=== PATIENT | male | born 1940 | race Caucasian/White ===

== ENCOUNTER 2017-04-30 07:46 | Inpatient (IN) | payer OTHER ==
[2017-04-30] MEDS: NS 1000 ML 1,000 ML IV SCH ×2 (08:47→21:27)
[2017-04-30 08:54] LABS: ALANINE AMINOTRANSFERASE 15 Units/L (12-78); ALBUMIN 3.4 g/dL (3.4-5.0); ALKALINE PHOSPHATASE 54 Units/L (46-116); ASPARTATE AMINO TRANSFERASE 16 Units/L (15-37); BLOOD UREA NITROGEN 13 mg/dL (7-18); CALCIUM 8.4 mg/dL (8.5-10.1); CARBON DIOXIDE 38.7 mmol/L (21-32); CHLORIDE 102 mmol/L (98-107); COR NA(FOR HYPERGLY) 143 mmol/L (136-145); CREATININE 0.88 mg/dL (0.70-1.30); GLUCOSE 122 mg/dL (65-99); SODIUM 142 mmol/L (136-145); eGFR BLACK RACES > 60 (>60); eGFR NON BLACK RACES > 60 (>60)
--- NOTE | 2017-04-30 08:54 | DR.GENAD ---
HPI - PCP Primary Care Physician: JESSICA - Complaint/Symptoms Chief Complaint Doctors Comments: Patient presented to the ED via EMS with complaint of SOB,and weakness.He is a Hospice patient secondary to his COPD status according to family member. He is on continous oxylgen ?liters, gets q4h neb treatments. He has a DNR but not on record. He is alert and afebrile. Chief Complaint:: EMS STATES PT IS HAVING SOB, WEAKNESS, AND CONFUSION. UPON ARRIVAL PT IS A&0 X2. PT IS HAVING DIFFICULTY BREATHING WITH O2 PRESENT. - Source History Provided: EMS - Mode of Arrival Mode of Arrival: EMS - Timing Onset of Chief Complaint: 04/30/17 PMH - PMH Past Medical History: Yes Past Medical History: Anemia, Angina, Anxiety, Arthritis, CHF, COPD, Coronary Artery Disease, Depression, Dyslipidemia, GERD, Hypertension, CA Past Surgical History: Yes Surgical History: Ortho Surgery, Tonsillectomy - Family History History of Family Medical Conditions: Yes Family Medical History: Cancer, Heart Failure, Hypertension - Social History Does any household member use tobacco: No Do you use any recreational Drugs:: No Lives With: Family Lives Where: Home - infectious screening In the last 2 months have you had wt loss of >10#?: NO Have you had fever, night sweats or hemotysis?: No Have you traveled outside the country in the last 6 months?: No Isolation: Standard ROS - Review of Systems Constitutional: No Symptoms Reported Eyes: No Symptoms Reported, Eye Pain ENTM: No Symptoms Reported Respiratoy: See HPI Cardiovascular: No Symptoms Reported Gastrointestinal/Abdominal: No Symptoms Reported Genitourinary: No Symptoms Reported Neurological: No Symptoms Reported Musculoskeletal: No Symptoms Reported Integumentary: No Symptoms Reported Hematologic/Lymphatic: No Symptoms Reported Endocrine: No Symptoms Reported Psychiatric: No Symptoms Reported All Other Systems: Reviewed and Negative PE - Vital Signs Vitals: Temperature 99.7 F Pulse Rate 102 Respiratory Rate 22 Blood Pressure [Left Arm] 141/88 Blood Pressure [Right Arm] 125/80 Blood Pressure 125/83 O2 Sat by Pulse Oximetry 94 - General General Appearance: In No Apparent Distress - Head Head Exam: Normal Inspection, Atraumatic - Eyes Eye exam: Normal Appearance, PERRL, EOMI - ENT ENT Exam: Normal Exam External Ear Exam: Normal External Inspection TM/Canal Exam: Bilateral Normal Nose Exam: Normal Nose Exam Mouth Exam: Normal Inspection Throat Exam: Normal Inspection - Neck Neck Exam: Normal Inspection - Chest Chest Inspection: Normal Inspection - Respiratory Respiratory Exam: Normal Lung Sounds Bilat Respiratory Exam: Bilateral Clear to Auscultation - Cardiovascular Cardiovascular Exam: Regular Rate, Normal Rhythm - Abdominal Exam Abdominal Exam: Normal Inspection Abdominal Tenderness: negative: RUQ, RLQ, LUQ, LLQ, Epigastrium, Suprapubic, Diffuse, Mild, Moderate, Severe, Other - Extremities Extremities Exam: Normal Inspection, Other (Left lower extremity smaller) - Back Back Exam: Normal Inspection, Full ROM - Neurologic Neurological Exam: Alert, Oriented X3, CN II-XII Intact - Psychiatric Psychiatric Exam: Normal Affect - Skin Skin Exam: Warm, Dry, Intact Course - Reevaluation 1st: Improved - Consultation Called: 09:40 (Dr Chilel recommended admit for further evaluation and treatment) ROR - Labs Reviewed Laboratory Results Reviewed?: Yes Result Diagrams: 04/30/17 08:35 04/30/17 08:32 Laboratory: WBC 10.0 X10^3/uL (3.6-10.0) 04/30/17 08:35 RBC 4.30 X10^6/uL (4.7-6.0) L 04/30/17 08:35 Hgb 12.4 g/dL (13.5-18.0) L 04/30/17 08:35 Hct 37.7 % (42.0-54.0) L 04/30/17 08:35 MCV 87.6 fL (80.0-100.0) 04/30/17 08:35 MCH 28.8 pg (27.0-34.0) 04/30/17 08:35 MCHC 32.9 g/dL (33.0-35.0) L 04/30/17 08:35 RDW 15.2 % (11.6-16.5) 04/30/17 08:35 Plt Count 120 X10^3/uL (150.0-450.0) L 04/30/17 08:35 MPV 9.6 fL (7.4-11.0) 04/30/17 08:35 Neut % 79.2 % (42.0-75.0) H 04/30/17 08:35 Lymph % 8.1 % (21.0-51.0) L 04/30/17 08:35 [place] % 7.7 % (0.0-13.0) 04/30/17 08:35 Eos % 4.3 % (0.9-2.9) H 04/30/17 08:35 Baso % 0.7 % (0.2-1.0) 04/30/17 08:35 Neut # 7.9 x10^3/uL (2.2-4.8) H 04/30/17 08:35 Lymph # 0.8 X10^3/uL (1.3-2.9) L 04/30/17 08:35 [place] # 0.8 x10^3/uL (0.3-0.8) 04/30/17 08:35 Eos # 0.4 x10^3/uL (0.0-0.2) H 04/30/17 08:35 Baso # 0.1 X10^3/uL (0.0-0.1) 04/30/17 08:35 Absolute Nucleated RBC 0.2 /100WBC 04/30/17 08:35 Sample Site Right brachial 04/30/17 09:13 ABG pH 7.280 (7.35-7.45) L 04/30/17 09:13 ABG pCO2 87.0 mmHg (35.0-45.0) H* 04/30/17 09:13 ABG pO2 66.0 mmHg (80.0-100.0) L 04/30/17 09:13 ABG HCO3 40.9 mmol/L (22-26) H* 04/30/17 09:13 ABG O2 Saturation 90.0 % (90-100) 04/30/17 09:13 ABG Base Excess 10.8 mmol/L (-2.0-2.0) H 04/30/17 09:13 Sam Test Na 04/30/17 09:13 A-a Gradient 53.0 mmHg 04/30/17 09:13 FiO2 32.000 04/30/17 09:13 Blood Gas Comments Eduin well aw 04/30/17 09:13 Sodium 142 mmol/L (136-145) 04/30/17 08:32 Corrected Sodium 143 mmol/L (136-145) 04/30/17 08:32 Potassium 4.8 mmol/L (3.5-5.1) 04/30/17 08:32 Chloride 102 mmol/L (98-107) 04/30/17 08:32 Carbon Dioxide 38.7 mmol/L (21-32) H 04/30/17 08:32 BUN 13 mg/dL (7-18) 04/30/17 08:32 Creatinine 0.88 mg/dL (0.70-1.30) 04/30/17 08:32 Est GFR (MDRD) Af Amer > 60 (>60) 04/30/17 08:32 Est GFR (MDRD) Non-Af > 60 (>60) 04/30/17 08:32 Glucose 122 mg/dL (65-99) H 04/30/17 08:32 Calcium 8.4 mg/dL (8.5-10.1) L 04/30/17 08:32 Corrected Calcium TNP 04/30/17 08:32 Total Bilirubin 0.50 mg/dL (0.2-1.0) 04/30/17 08:32 AST 16 Units/L (15-37) 04/30/17 08:32 ALT 15 Units/L (12-78) 04/30/17 08:32 Alkaline Phosphatase 54 Units/L (46-116) 04/30/17 08:32 B-Natriuretic Peptide 62.2 pg/mL (0-79) 04/30/17 08:32 Total Protein 7.0 g/dL (6.4-8.2) 04/30/17 08:32 Albumin 3.4 g/dL (3.4-5.0) 04/30/17 08:32 Globulin 3.6 g/dL (2.5-4.5) 04/30/17 08:32 Albumin/Globulin Ratio 0.9 Ratio (1.1-2.1) L 04/30/17 08:32 - XRAY XRAY Interpreted by: Radiologist (Questionable parenchymal scarring along the right upper lobe with is ill defined, recommend a followup PA.) - Diagnosis Discharge Problem: Acute respiratory acidosis COPD (chronic obstructive pulmonary disease) Qualifiers: COPD type: COPD with acute exacerbation Qualified Code(s): J44.1 - Chronic obstructive pulmonary disease with (acute) exacerbation - Discharge Plan Condition: Stable - Follow ups/Referrals Follow ups/Referrals: EDNA CHILEL [Primary Care Provider] - 3 days - Instructions
--- NOTE | 2017-04-30 08:59 | RAD ---
HISTORY: shortness of breath Study: Portable chest Comparison: 02/20/2016 Findings: The heart is normal. The pulmonary vessels are normal. The lungs are mildly hyperinflated. There is overlying EKG lead and tubing artifact. There is some ill-defined parenchymal density in the right u pper lobe which is very ill-defined . There chronic interstitial changes along the lung bases with s ome questionable hazy right basilar opacity . There effusion is seen. IMPRESSION: Overlying artifact limiting the exam with diffuse chronic lung changes and questionable early infilt rate or atelectasis right lower lobe . Questionable parenchymal scarring along the right upper lobe which is ill-defined, recommend a follo wup PA and lateral chest. Reported By:
[2017-04-30] MEDS ORDERED: DUONEB 0.5 MG/3 MG ONE (09:16)
[2017-04-30 09:22] LABS: ABG BASE EXCESS 10.8 mmol/L (-2.0-2.0)
[2017-04-30 09:23] LABS: ABG HCO3 40.9 mmol/L (22-26)
[2017-04-30 09:38] LABS: BASOPHILS # (AUTO) 0.1 X10^3/uL (0.0-0.1); BASOPHILS % (AUTO) 0.7 % (0.2-1.0); EOSINOPHILS # (AUTO) 0.4 x10^3/uL (0.0-0.2); EOSINOPHILS % (AUTO) 4.3 % (0.9-2.9); HEMATOCRIT 37.7 % (42.0-54.0); HEMOGLOBIN 12.4 g/dL (13.5-18.0); LYMPHOCYTES # (AUTO) 0.8 X10^3/uL (1.3-2.9); LYMPHOCYTES % (AUTO) 8.1 % (21.0-51.0); MEAN CORPUSCULAR HEMOGLOBIN 28.8 pg (27.0-34.0); MEAN CORPUSCULAR HGB CONC 32.9 g/dL (33.0-35.0); MEAN CORPUSCULAR VOLUME 87.6 fL (80.0-100.0); MEAN PLATELET VOLUME 9.6 fL (7.4-11.0); MONOCYTES # (AUTO) 0.8 x10^3/uL (0.3-0.8); MONOCYTES % (AUTO) 7.7 % (0.0-13.0); NEUTROPHILS # (AUTO) 7.9 x10^3/uL (2.2-4.8); NEUTROPHILS % (AUTO) 79.2 % (42.0-75.0); PLATELET COUNT 120 X10^3/uL (150.0-450.0); RED CELL DISTRIBUTION WIDTH 15.2 % (11.6-16.5)
[2017-04-30] MEDS ORDERED: SOLU-Medrol 125 MG VIAL IVP ONE (10:46)
[2017-04-30] MEDS ORDERED: SOLU-Medrol 125 MG VIAL ONE (11:15)
[2017-04-30] MEDS: LEVAQUIN PREMIX IV 750 MG 750 MG/150 ML BAG IV SCH (11:16)
[2017-04-30 11:26] LABS: BLOOD UREA NITROGEN 14 mg/dL (7-18); CALCIUM 8.4 mg/dL (8.5-10.1); CARBON DIOXIDE 36.6 mmol/L (21-32); CHLORIDE 103 mmol/L (98-107); COR NA(FOR HYPERGLY) 142 mmol/L (136-145); CREATININE 0.89 mg/dL (0.70-1.30); GLUCOSE 113 mg/dL (65-99); SODIUM 142 mmol/L (136-145); eGFR BLACK RACES > 60 (>60); eGFR NON BLACK RACES > 60 (>60)
[2017-04-30 11:54] LABS: BASOPHILS # (AUTO) 0.1 X10^3/uL (0.0-0.1); BASOPHILS % (AUTO) 0.8 % (0.2-1.0); EOSINOPHILS # (AUTO) 0.2 x10^3/uL (0.0-0.2); EOSINOPHILS % (AUTO) 1.8 % (0.9-2.9); HEMATOCRIT 37.1 % (42.0-54.0); HEMOGLOBIN 12.2 g/dL (13.5-18.0); LYMPHOCYTES # (AUTO) 0.9 X10^3/uL (1.3-2.9); LYMPHOCYTES % (AUTO) 10.4 % (21.0-51.0); MEAN CORPUSCULAR HEMOGLOBIN 28.8 pg (27.0-34.0); MEAN CORPUSCULAR HGB CONC 32.9 g/dL (33.0-35.0); MEAN CORPUSCULAR VOLUME 87.4 fL (80.0-100.0); MEAN PLATELET VOLUME 9.1 fL (7.4-11.0); MONOCYTES # (AUTO) 0.7 x10^3/uL (0.3-0.8); MONOCYTES % (AUTO) 7.8 % (0.0-13.0); NEUTROPHILS # (AUTO) 7.2 x10^3/uL (2.2-4.8); NEUTROPHILS % (AUTO) 79.2 % (42.0-75.0); PLATELET COUNT 126 X10^3/uL (150.0-450.0); RED BLOOD COUNT 4.24 X10^6/uL (4.7-6.0); RED CELL DISTRIBUTION WIDTH 15.1 % (11.6-16.5); WHITE BLOOD COUNT 9.1 X10^3/uL (3.6-10.0)
--- NOTE | 2017-04-30 12:07 | CT ---
HISTORY: Difficulty breathing Study: CT chest without contrast Comparison: None Technique: Multiple axial images of the chest were obtained from the thoracic inlet to the upper abd omen without contrast. Automated dose control was used. Findings: The thyroid gland is unremarkable. There is calcified plaque throughout the aorta which is normal ca liber. There is no mediastinal mass or adenopathy. There are moderate coronary artery calcifications on the left. The adrenals are normal. The visualized upper abdomen is unremarkable. The lungs are h yperinflated and emphysematous . There is moderate irregular parenchymal opacity along the right upp er lobe extending inferiorly along the pleural surface with some mildly dilated bronchials throughou t the area. There are subsegmental opacities and air bronchograms along both lung bases posteriorly. No effusion is seen. No pulmonary nodules are seen. There is subsegmental opacity along the lingula inferiorly and laterally. There are multiple old rib fractures seen posterior laterally on the left . Moderate degenerative changes are seen throughout the spine with no aggressive osseous lesion. IMPRESSION: COPD with moderate irregular parenchymal opacity along the right upper lobe which probably represent s parenchymal scarring and fibrosis or less likely an active process in the area. Recommend followup to assure stability or PET scan correlation. Mild subsegmental atelectasis vs early infiltrates along the lung bases posteriorly and lingula, rec ommend correlating with chest x-rays. Reported By:
[2017-04-30] MEDS: DUONEB 0.5 MG/3 MG NEB SCH ×3 (12:39→20:48)
[2017-04-30 12:59] LABS: BILIRUBIN,URINE NEGATIVE (NEGATIVE); BLOOD/HEMOGLOBIN,URINE NEGATIVE (NEGATIVE); GLUCOSE, URINE NEGATIVE (NEGATIVE); KETONES,URINE NEGATIVE (NEGATIVE); LEUKOCYTE ESTERASE ,URINE NEGATIVE (NEGATIVE); NITRITES,URINE NEGATIVE (NEGATIVE); PROTEIN,URINE 2+ (NEGATIVE); UROBILINOGEN,URINE 1+ (NORMAL)
[2017-04-30 13:08] LABS: COLOR,URINE YELLOW (YELLOW)
[2017-04-30 13:09] LABS: APPEARANCE,URINE CLEAR (CLEAR); RBC,URINE NEGATIVE /HPF (NEGATIVE)
[2017-04-30 13:10] LABS: BACTERIA,URINE NEGATIVE /HPF (NEGATIVE); SQUAMOUS EPITHELIAL CELL,UR NEGATIVE /HPF (NEGATIVE)
[2017-04-30 13:16] VITALS: BMI 23.8
[2017-04-30] MEDS ORDERED: PATIENT'S HOME MEDICATION (Citalopram Hydrobromide [Celexa] 1 TAB) PO SCH (13:30)
[2017-04-30] MEDS ORDERED: PATIENT'S HOME MEDICATION (Cetirizine Hcl [Zyrtec] 1 TAB) PO SCH (13:30)
[2017-04-30] MEDS ORDERED: ATIVAN TAB 0.5 MG PO PRN (13:34)
[2017-04-30 14:04] LABS: ABG BASE EXCESS 12.7 mmol/L (-2.0-2.0)
[2017-04-30 14:05] LABS: ABG HCO3 41.4 mmol/L (22-26)
[2017-04-30] MEDS: ROBITUSSIN AC PO SCH ×2 (15:31→21:12)
[2017-04-30] MEDS: LASIX PO SCH ×2 (15:32→21:12)
[2017-04-30] MEDS: ASPIRIN EC 81 MG PO SCH (15:32)
[2017-04-30] MEDS: PLAVIX PO SCH (15:36)
[2017-04-30] MEDS ORDERED: THEOPHYLLINE 400 MG PO SCH (21:00)
[2017-04-30] MEDS ORDERED: PATIENT'S HOME MEDICATION (Atorvastatin Calcium [Lipitor] 80 MG) PO SCH (21:00)
[2017-04-30] MEDS: UNIPHYL TAB 400 MG PO SCH (21:11)
[2017-04-30] MEDS: ATIVAN TAB 1 MG PO SCH (21:12)
[2017-04-30] MEDS: LIPITOR TAB 40 MG PO SCH (21:12)
[2017-04-30] MEDS: HYTRIN PO SCH (21:12)
[2017-04-30] MEDS: ALDACTONE TAB 25 MG PO SCH (21:12)
[2017-04-30 22:04] LABS: BILIRUBIN,URINE NEGATIVE (NEGATIVE); BLOOD/HEMOGLOBIN,URINE NEGATIVE (NEGATIVE); GLUCOSE, URINE NEGATIVE (NEGATIVE); KETONES,URINE NEGATIVE (NEGATIVE); LEUKOCYTE ESTERASE ,URINE NEGATIVE (NEGATIVE); NITRITES,URINE NEGATIVE (NEGATIVE); PROTEIN,URINE NEGATIVE (NEGATIVE); UROBILINOGEN,URINE NORMAL (NORMAL)
[2017-04-30 22:29] LABS: APPEARANCE,URINE CLEAR (CLEAR); BACTERIA,URINE NEGATIVE /HPF (NEGATIVE); COLOR,URINE YELLOW (YELLOW); RBC,URINE 0-3 /HPF (NEGATIVE); SQUAMOUS EPITHELIAL CELL,UR RARE /HPF (NEGATIVE)
[2017-04-30] MEDS: NORCO 10/325 TAB PO PRN (23:37)
[2017-05-01] MEDS: DUONEB 0.5 MG/3 MG NEB SCH ×6 (00:18→21:11)
[2017-05-01] MEDS: ROBITUSSIN AC PO SCH ×4 (03:04→20:48)
[2017-05-01 06:11] LABS: BASOPHILS % (AUTO) 0.2 % (0.2-1.0); HEMATOCRIT 34.1 % (42.0-54.0); HEMOGLOBIN 11.3 g/dL (13.5-18.0); LYMPHOCYTES # (AUTO) 0.7 X10^3/uL (1.3-2.9); LYMPHOCYTES % (AUTO) 8.5 % (21.0-51.0); MEAN CORPUSCULAR HEMOGLOBIN 28.5 pg (27.0-34.0); MEAN CORPUSCULAR HGB CONC 33.3 g/dL (33.0-35.0); MEAN CORPUSCULAR VOLUME 85.7 fL (80.0-100.0); MEAN PLATELET VOLUME 9.4 fL (7.4-11.0); MONOCYTES # (AUTO) 0.4 x10^3/uL (0.3-0.8); NEUTROPHILS # (AUTO) 7.3 x10^3/uL (2.2-4.8); NEUTROPHILS % (AUTO) 86.3 % (42.0-75.0); PLATELET COUNT 113 X10^3/uL (150.0-450.0); RED BLOOD COUNT 3.98 X10^6/uL (4.7-6.0); WHITE BLOOD COUNT 8.5 X10^3/uL (3.6-10.0)
[2017-05-01 06:21] LABS: ALANINE AMINOTRANSFERASE 16 Units/L (12-78); ALKALINE PHOSPHATASE 42 Units/L (46-116); ASPARTATE AMINO TRANSFERASE 36 Units/L (15-37); BLOOD UREA NITROGEN 17 mg/dL (7-18); CALCIUM 8.1 mg/dL (8.5-10.1); CHLORIDE 99 mmol/L (98-107); COR CA(FOR HYPOALB) 8.9 mg/dL (8.5-10.1); COR NA(FOR HYPERGLY) 142 mmol/L (136-145); CREATININE 0.92 mg/dL (0.70-1.30); GLUCOSE 132 mg/dL (65-99); SODIUM 141 mmol/L (136-145); TOTAL PROTEIN 6.4 g/dL (6.4-8.2); eGFR BLACK RACES > 60 (>60); eGFR NON BLACK RACES > 60 (>60)
[2017-05-01] MEDS: NS 1000 ML 1,000 ML IV SCH ×3 (08:51→23:00)
[2017-05-01] MEDS: LEVAQUIN PREMIX IV 750 MG 750 MG/150 ML BAG IV SCH (08:51)
[2017-05-01] MEDS: PriLOSEC PO SCH (08:52)
[2017-05-01] MEDS: ALDACTONE TAB 25 MG PO SCH ×2 (08:52→20:47)
[2017-05-01] MEDS: LASIX PO SCH ×3 (08:52→20:36)
[2017-05-01] MEDS: HYTRIN PO SCH ×2 (08:52→21:04)
[2017-05-01] MEDS: CELEXA PO SCH (08:52)
[2017-05-01] MEDS: ASPIRIN EC 81 MG PO SCH (08:52)
[2017-05-01] MEDS: ZyrTEC TAB 10 MG PO SCH (08:52)
[2017-05-01] MEDS: PLAVIX PO SCH (08:54)
[2017-05-01] MEDS: UNIPHYL TAB 400 MG PO SCH ×2 (08:55→20:47)
[2017-05-01] MEDS: NORCO 10/325 TAB PO PRN ×2 (10:49→20:47)
[2017-05-01] MEDS ORDERED: ROXANOL ORAL SOLN 20MG UDC PO PRN (16:46)
[2017-05-01] MEDS: LIPITOR TAB 40 MG PO SCH (20:47)
[2017-05-01] MEDS: ATIVAN TAB 1 MG PO SCH (20:47)
[2017-05-01] MEDS: COREG TAB 6.25 MG PO SCH (20:47)
[2017-05-02] MEDS: DUONEB 0.5 MG/3 MG NEB SCH ×6 (01:03→20:37)
[2017-05-02] MEDS: NS 1000 ML 1,000 ML IV SCH ×2 (05:00→19:20)
[2017-05-02] MEDS: ROBITUSSIN AC PO SCH ×4 (05:00→20:19)
[2017-05-02 07:46] LABS: BASOPHILS # (AUTO) 0.1 X10^3/uL (0.0-0.1); BASOPHILS % (AUTO) 0.7 % (0.2-1.0); EOSINOPHILS # (AUTO) 0.1 x10^3/uL (0.0-0.2); EOSINOPHILS % (AUTO) 1.4 % (0.9-2.9); HEMATOCRIT 33.5 % (42.0-54.0); HEMOGLOBIN 11.2 g/dL (13.5-18.0); LYMPHOCYTES # (AUTO) 1.2 X10^3/uL (1.3-2.9); LYMPHOCYTES % (AUTO) 14.5 % (21.0-51.0); MEAN CORPUSCULAR HEMOGLOBIN 28.6 pg (27.0-34.0); MEAN CORPUSCULAR HGB CONC 33.3 g/dL (33.0-35.0); MEAN CORPUSCULAR VOLUME 85.9 fL (80.0-100.0); MEAN PLATELET VOLUME 9.1 fL (7.4-11.0); MONOCYTES # (AUTO) 0.9 x10^3/uL (0.3-0.8); MONOCYTES % (AUTO) 10.3 % (0.0-13.0); NEUTROPHILS # (AUTO) 6.2 x10^3/uL (2.2-4.8); NEUTROPHILS % (AUTO) 73.1 % (42.0-75.0); PLATELET COUNT 112 X10^3/uL (150.0-450.0); RED BLOOD COUNT 3.91 X10^6/uL (4.7-6.0); RED CELL DISTRIBUTION WIDTH 15.2 % (11.6-16.5); WHITE BLOOD COUNT 8.5 X10^3/uL (3.6-10.0)
[2017-05-02 07:59] LABS: ALANINE AMINOTRANSFERASE 19 Units/L (12-78); ALBUMIN 2.7 g/dL (3.4-5.0); ALKALINE PHOSPHATASE 38 Units/L (46-116); ASPARTATE AMINO TRANSFERASE 42 Units/L (15-37); BLOOD UREA NITROGEN 14 mg/dL (7-18); CALCIUM 7.7 mg/dL (8.5-10.1); CARBON DIOXIDE 35.6 mmol/L (21-32); CHLORIDE 104 mmol/L (98-107); COR CA(FOR HYPOALB) 8.7 mg/dL (8.5-10.1); GLUCOSE 80 mg/dL (65-99); SODIUM 144 mmol/L (136-145); TOTAL PROTEIN 5.7 g/dL (6.4-8.2); eGFR BLACK RACES > 60 (>60); eGFR NON BLACK RACES > 60 (>60)
[2017-05-02] MEDS: LEVAQUIN PREMIX IV 750 MG 750 MG/150 ML BAG IV SCH (09:30)
[2017-05-02] MEDS: ASPIRIN EC 81 MG PO SCH ×2 (11:19→13:34)
[2017-05-02] MEDS: ALDACTONE TAB 25 MG PO SCH ×3 (11:19→20:20)
[2017-05-02] MEDS: CELEXA PO SCH ×2 (11:19→13:35)
[2017-05-02] MEDS: COREG TAB 6.25 MG PO SCH ×3 (11:19→20:18)
[2017-05-02] MEDS: HYTRIN PO SCH ×3 (11:20→20:18)
[2017-05-02] MEDS: LASIX PO SCH ×3 (11:20→20:25)
[2017-05-02] MEDS: PLAVIX PO SCH ×2 (11:20→13:37)
[2017-05-02] MEDS: ZyrTEC TAB 10 MG PO SCH ×2 (11:21→13:34)
[2017-05-02] MEDS: PriLOSEC PO SCH ×2 (11:21→13:36)
[2017-05-02] MEDS: UNIPHYL TAB 400 MG PO SCH ×3 (11:21→20:20)
[2017-05-02] MEDS: NORCO 10/325 TAB PO PRN ×2 (11:57→20:19)
--- NOTE | 2017-05-02 17:15 | PCM.PROG ---
Progress Note - Progress Note for Day of Date: 05/02/17 - Subjective Subjective: admitted on 04/30 with respiratory distress, pt has history of resp failure. Plan to contine BIPAP, RESP therapy, iv atbx, iv steroids. repeat am labs, chest xray - Past Medical Family Social History Allergies: Allergies penicillin G Adverse Reaction (Verified 04/30/17 13:20) - Review of Systems ROS: No change since H&P - Vital Signs and I&O's Vital Signs: Temperature 98.2 F Pulse Rate [Apical] 60 Pulse Rate 61 Respiratory Rate 14 Blood Pressure [Left Arm] 130/69 O2 Sat by Pulse Oximetry 98 Intake and Output: Intake & Output 04/30/17 05/01/17 05/02/17 05/03/17 11:59 11:59 11:59 11:59 Intake Total 3180 4450 1350 Output Total 2520 2600 1000 Balance 660 1850 350 - Physical Exam Oriented: Normal Eyes: Normal Ear: Normal Nose: Normal Throat: Normal Respiratory: Diminished, Wheezes Cardiovascular: Tachycardia. negative: Edema : Normal Auscultation: Bowel Sounds: Normal, Absent Tenderness: Normal Skin: Decreased Turgur Musculoskeletal: Back:Lumbar Psychiatric: Anxiety Speech Pattern: Appropriate - Laboratory and Diagnostics Result Diagrams: 05/02/17 07:35 05/02/17 07:35 Labs: 05/01/17 12:16 Sputum - Expectorated Sputum Sputum Culture - Preliminary 05/01/17 12:16 Sputum - Expectorated Sputum - Final Laboratory WBC 8.5 X10^3/uL (3.6-10.0) 05/02/17 07:35 RBC 3.91 X10^6/uL (4.7-6.0) L 05/02/17 07:35 Hgb 11.2 g/dL (13.5-18.0) L 05/02/17 07:35 Hct 33.5 % (42.0-54.0) L 05/02/17 07:35 MCV 85.9 fL (80.0-100.0) 05/02/17 07:35 MCH 28.6 pg (27.0-34.0) 05/02/17 07:35 MCHC 33.3 g/dL (33.0-35.0) 05/02/17 07:35 RDW 15.2 % (11.6-16.5) 05/02/17 07:35 Plt Count 112 X10^3/uL (150.0-450.0) L 05/02/17 07:35 MPV 9.1 fL (7.4-11.0) 05/02/17 07:35 Neut % 73.1 % (42.0-75.0) 05/02/17 07:35 Lymph % 14.5 % (21.0-51.0) L 05/02/17 07:35 [place] % 10.3 % (0.0-13.0) 05/02/17 07:35 Eos % 1.4 % (0.9-2.9) 05/02/17 07:35 Baso % 0.7 % (0.2-1.0) 05/02/17 07:35 Neut # 6.2 x10^3/uL (2.2-4.8) H 05/02/17 07:35 Lymph # 1.2 X10^3/uL (1.3-2.9) L 05/02/17 07:35 [place] # 0.9 x10^3/uL (0.3-0.8) H 05/02/17 07:35 Eos # 0.1 x10^3/uL (0.0-0.2) 05/02/17 07:35 Baso # 0.1 X10^3/uL (0.0-0.1) 05/02/17 07:35 Absolute Nucleated RBC 0.0 /100WBC 05/02/17 07:35 Sample Site Right brachial 04/30/17 13:55 ABG pH 7.350 (7.35-7.45) 04/30/17 13:55 ABG pCO2 75.0 mmHg (35.0-45.0) H* 04/30/17 13:55 ABG pO2 52.0 mmHg (80.0-100.0) L 04/30/17 13:55 ABG HCO3 41.4 mmol/L (22-26) H* 04/30/17 13:55 ABG O2 Saturation 85.0 % (90-100) L 04/30/17 13:55 ABG Base Excess 12.7 mmol/L (-2.0-2.0) H 04/30/17 13:55 Sam Test Na 04/30/17 13:55 A-a Gradient 104.0 mmHg 04/30/17 13:55 FiO2 35.000 04/30/17 13:55 Blood Gas Comments Eduin well aw 04/30/17 13:55 Sodium 144 mmol/L (136-145) 05/02/17 07:35 Corrected Sodium TNP 05/02/17 07:35 Potassium 3.5 mmol/L (3.5-5.1) 05/02/17 07:35 Chloride 104 mmol/L (98-107) 05/02/17 07:35 Carbon Dioxide 35.6 mmol/L (21-32) H 05/02/17 07:35 BUN 14 mg/dL (7-18) 05/02/17 07:35 Creatinine 0.80 mg/dL (0.70-1.30) 05/02/17 07:35 Est GFR (MDRD) Af Amer > 60 (>60) 05/02/17 07:35 Est GFR (MDRD) Non-Af > 60 (>60) 05/02/17 07:35 Glucose 80 mg/dL (65-99) 05/02/17 07:35 Calcium 7.7 mg/dL (8.5-10.1) L 05/02/17 07:35 Corrected Calcium 8.7 mg/dL (8.5-10.1) 05/02/17 07:35 Total Bilirubin 0.30 mg/dL (0.2-1.0) 05/02/17 07:35 AST 42 Units/L (15-37) H 05/02/17 07:35 ALT 19 Units/L (12-78) 05/02/17 07:35 Alkaline Phosphatase 38 Units/L (46-116) L 05/02/17 07:35 B-Natriuretic Peptide 62.2 pg/mL (0-79) 04/30/17 08:32 Total Protein 5.7 g/dL (6.4-8.2) L 05/02/17 07:35 Albumin 2.7 g/dL (3.4-5.0) L 05/02/17 07:35 Globulin 3.0 g/dL (2.5-4.5) 05/02/17 07:35 Albumin/Globulin Ratio 0.9 Ratio (1.1-2.1) L 05/02/17 07:35 Specimen Type Clean catch urine 04/30/17 21:20 Urine Color Yellow (YELLOW) 04/30/17 21:20 Urine Appearance Clear (CLEAR) 04/30/17 21:20 Urine pH 5.0 (5.0 - 8.0) 04/30/17 21:20 Ur Specific [place] 1.015 (1.000-1.030) 04/30/17 21:20 Urine Protein Negative (NEGATIVE) 04/30/17 21:20 Urine Glucose (UA) Negative (NEGATIVE) 04/30/17 21:20 Urine Ketones Negative (NEGATIVE) 04/30/17 21:20 Urine Occult Blood Negative (NEGATIVE) 04/30/17 21:20 Urine Nitrite Negative (NEGATIVE) 04/30/17 21:20 Urine Bilirubin Negative (NEGATIVE) 04/30/17 21:20 Urine Urobilinogen Normal (NORMAL) 04/30/17 21:20 Ur Leukocyte Esterase Negative (NEGATIVE) 04/30/17 21:20 Urine RBC 0-3 /HPF (NEGATIVE) 04/30/17 21:20 Urine WBC 0-3 /HPF (NEGATIVE) 04/30/17 21:20 Ur Squamous Epith Cells Rare /HPF (NEGATIVE) 04/30/17 21:20 Urine Bacteria Negative /HPF (NEGATIVE) 04/30/17 21:20 Ur Culture Indicated? No/not indicated 04/30/17 21:20 - Plan (1) Acute respiratory acidosis Status: Acute Plan: CONTINUE IV ATBX, RESP THERAPY, IV SOLU MEDROL. BIPAP, CHEST XRAY Q AM. REPEAT AM LABS. PAIN CONTROL, CARDIAC MONITORING (2) COPD (chronic obstructive pulmonary disease) Status: Acute Qualifiers: COPD type: COPD with acute exacerbation Chronic bronchitis type: C Emphysema type: E Qualified Code(s): J44.1 - Chronic obstructive pulmonary disease with (acute) exacerbation (3) Arthritis Status: Chronic (4) CHF (congestive heart failure) Status: Chronic Qualifiers: Congestive heart failure type: C Congestive heart failure chronicity: C (5) GERD (gastroesophageal reflux disease) Status: Chronic Qualifiers: Esophagitis presence: E (6) Hypertension Status: Chronic Qualifiers: Hypertension type: H
[2017-05-02] MEDS: SOLU-Medrol 40 MG VIAL IVP SCH ×2 (18:01→23:41)
[2017-05-02] MEDS: ATIVAN TAB 1 MG PO SCH (20:17)
[2017-05-02] MEDS: COLACE CAP 100 MG PO SCH (20:18)
[2017-05-02] MEDS: LIPITOR TAB 40 MG PO SCH (20:19)
[2017-05-02] MEDS: MILK OF MAGNESIA PO SCH (20:20)
[2017-05-03] MEDS: DUONEB 0.5 MG/3 MG NEB SCH ×6 (01:09→20:56)
[2017-05-03] MEDS: NS 1000 ML 1,000 ML IV SCH ×3 (03:25→18:17)
[2017-05-03] MEDS: ROBITUSSIN AC PO SCH ×4 (03:26→20:27)
[2017-05-03] MEDS: SOLU-Medrol 40 MG VIAL IVP SCH (05:38)
[2017-05-03 05:51] LABS: BASOPHILS % (AUTO) 0.2 % (0.2-1.0); EOSINOPHILS % (AUTO) 0.1 % (0.9-2.9); HEMATOCRIT 34.4 % (42.0-54.0); HEMOGLOBIN 11.4 g/dL (13.5-18.0); LYMPHOCYTES # (AUTO) 0.5 X10^3/uL (1.3-2.9); LYMPHOCYTES % (AUTO) 8.7 % (21.0-51.0); MEAN CORPUSCULAR HEMOGLOBIN 28.6 pg (27.0-34.0); MEAN CORPUSCULAR HGB CONC 33.2 g/dL (33.0-35.0); MEAN CORPUSCULAR VOLUME 86.2 fL (80.0-100.0); MEAN PLATELET VOLUME 9.4 fL (7.4-11.0); MONOCYTES # (AUTO) 0.1 x10^3/uL (0.3-0.8); MONOCYTES % (AUTO) 1.7 % (0.0-13.0); NEUTROPHILS # (AUTO) 4.8 x10^3/uL (2.2-4.8); NEUTROPHILS % (AUTO) 89.3 % (42.0-75.0); PLATELET COUNT 126 X10^3/uL (150.0-450.0); RED BLOOD COUNT 3.99 X10^6/uL (4.7-6.0); WHITE BLOOD COUNT 5.3 X10^3/uL (3.6-10.0)
[2017-05-03 05:55] LABS: ALANINE AMINOTRANSFERASE 19 Units/L (12-78); ALBUMIN 2.7 g/dL (3.4-5.0); ALKALINE PHOSPHATASE 38 Units/L (46-116); ASPARTATE AMINO TRANSFERASE 33 Units/L (15-37); BLOOD UREA NITROGEN 13 mg/dL (7-18); CALCIUM 7.9 mg/dL (8.5-10.1); CARBON DIOXIDE 35.5 mmol/L (21-32); CHLORIDE 103 mmol/L (98-107); COR CA(FOR HYPOALB) 8.9 mg/dL (8.5-10.1); COR NA(FOR HYPERGLY) 143 mmol/L (136-145); CREATININE 0.87 mg/dL (0.70-1.30); GLUCOSE 143 mg/dL (65-99); SODIUM 142 mmol/L (136-145); TOTAL PROTEIN 5.9 g/dL (6.4-8.2); eGFR BLACK RACES > 60 (>60); eGFR NON BLACK RACES > 60 (>60)
--- NOTE | 2017-05-03 07:18 | RAD ---
HISTORY: Shortness of breath Study: Chest one view Comparison: April 30, 2017 and multiple priors Findings: The heart is within normal limits in size. The chevy are normal. The lungs are free of acute alveolar infiltrates. No pleural effusions are identified. A subtle irregular parenchymal density in the rig ht apex has been present on prior examinations including CT examination February 11, 2015. It likely re presents a parenchymal scar. The bony thorax is unremarkable. IMPRESSION: No acute infiltrate Stable parenchymal scar right lung apex Reported By:
[2017-05-03] MEDS: COREG TAB 6.25 MG PO SCH ×2 (08:47→20:26)
[2017-05-03] MEDS: CELEXA PO SCH (08:47)
[2017-05-03] MEDS: LEVAQUIN PREMIX IV 750 MG 750 MG/150 ML BAG IV SCH (08:47)
[2017-05-03] MEDS: PriLOSEC PO SCH (08:47)
[2017-05-03] MEDS: HYTRIN PO SCH ×2 (08:47→20:25)
[2017-05-03] MEDS: ASPIRIN EC 81 MG PO SCH (08:47)
[2017-05-03] MEDS: ALDACTONE TAB 25 MG PO SCH ×2 (08:48→20:25)
[2017-05-03] MEDS: LASIX PO SCH ×2 (08:48→22:43)
[2017-05-03] MEDS: ZyrTEC TAB 10 MG PO SCH (08:48)
[2017-05-03] MEDS: PLAVIX PO SCH (08:48)
[2017-05-03] MEDS: UNIPHYL TAB 400 MG PO SCH ×2 (09:31→20:26)
[2017-05-03] MEDS ORDERED: PHARMACY CONSULT - DOSE _____ XX SCH (10:00)
--- NOTE | 2017-05-03 14:08 | PCM.PROG ---
Progress Note - Progress Note for Day of Date: 05/03/17 - Subjective Subjective: admitted on 04/30 with respiratory distress, pt has history of resp failure. pt sitting up in chart with nasal canula, pt resp distress improved, pt states he feels stronger. Discussed possible dc tomorrow - Past Medical Family Social History Past Med/Fam/Surg Hx: No changes since H&P Allergies: Allergies penicillin G Adverse Reaction (Verified 04/30/17 13:20) - Review of Systems ROS: No change since H&P - Vital Signs and I&O's Vital Signs: Temperature 98.5 F Pulse Rate [Apical] 87 Pulse Rate 89 Respiratory Rate 27 Blood Pressure [Left Arm] 129/59 O2 Sat by Pulse Oximetry 95 Intake and Output: Intake & Output 05/01/17 05/02/17 05/03/17 05/04/17 11:59 11:59 11:59 11:59 Intake Total 3180 4450 2110 Output Total 2520 2600 1600 Balance 660 1850 510 - Physical Exam Oriented: Normal Eyes: Normal Ear: Normal Nose: Normal Throat: Normal Respiratory: Diminished, Wheezes Cardiovascular: Tachycardia. negative: Edema : Normal Auscultation: Bowel Sounds: Normal, Absent Tenderness: Normal Skin: Decreased Turgur Musculoskeletal: Back:Lumbar Psychiatric: Anxiety Speech Pattern: Clear, Appropriate - Laboratory and Diagnostics Result Diagrams: 05/03/17 03:20 05/03/17 03:20 Labs: 05/01/17 12:16 Sputum - Expectorated Sputum Sputum Culture - Final 05/01/17 12:16 Sputum - Expectorated Sputum - Final 04/30/17 11:10 Blood Blood Culture - Preliminary Laboratory WBC 5.3 X10^3/uL (3.6-10.0) 05/03/17 03:20 RBC 3.99 X10^6/uL (4.7-6.0) L 05/03/17 03:20 Hgb 11.4 g/dL (13.5-18.0) L 05/03/17 03:20 Hct 34.4 % (42.0-54.0) L 05/03/17 03:20 MCV 86.2 fL (80.0-100.0) 05/03/17 03:20 MCH 28.6 pg (27.0-34.0) 05/03/17 03:20 MCHC 33.2 g/dL (33.0-35.0) 05/03/17 03:20 RDW 15.0 % (11.6-16.5) 05/03/17 03:20 Plt Count 126 X10^3/uL (150.0-450.0) L 05/03/17 03:20 MPV 9.4 fL (7.4-11.0) 05/03/17 03:20 Neut % 89.3 % (42.0-75.0) H 05/03/17 03:20 Lymph % 8.7 % (21.0-51.0) L 05/03/17 03:20 [place] % 1.7 % (0.0-13.0) 05/03/17 03:20 Eos % 0.1 % (0.9-2.9) L 05/03/17 03:20 Baso % 0.2 % (0.2-1.0) 05/03/17 03:20 Neut # 4.8 x10^3/uL (2.2-4.8) 05/03/17 03:20 Lymph # 0.5 X10^3/uL (1.3-2.9) L 05/03/17 03:20 [place] # 0.1 x10^3/uL (0.3-0.8) L 05/03/17 03:20 Eos # 0.0 x10^3/uL (0.0-0.2) 05/03/17 03:20 Baso # 0.0 X10^3/uL (0.0-0.1) 05/03/17 03:20 Absolute Nucleated RBC 0.0 /100WBC 05/03/17 03:20 Sample Site Right brachial 04/30/17 13:55 ABG pH 7.350 (7.35-7.45) 04/30/17 13:55 ABG pCO2 75.0 mmHg (35.0-45.0) H* 04/30/17 13:55 ABG pO2 52.0 mmHg (80.0-100.0) L 04/30/17 13:55 ABG HCO3 41.4 mmol/L (22-26) H* 04/30/17 13:55 ABG O2 Saturation 85.0 % (90-100) L 04/30/17 13:55 ABG Base Excess 12.7 mmol/L (-2.0-2.0) H 04/30/17 13:55 Sam Test Na 04/30/17 13:55 A-a Gradient 104.0 mmHg 04/30/17 13:55 FiO2 35.000 04/30/17 13:55 Blood Gas Comments Eduin well aw 04/30/17 13:55 Sodium 142 mmol/L (136-145) 05/03/17 03:20 Corrected Sodium 143 mmol/L (136-145) 05/03/17 03:20 Potassium 3.8 mmol/L (3.5-5.1) 05/03/17 03:20 Chloride 103 mmol/L (98-107) 05/03/17 03:20 Carbon Dioxide 35.5 mmol/L (21-32) H 05/03/17 03:20 BUN 13 mg/dL (7-18) 05/03/17 03:20 Creatinine 0.87 mg/dL (0.70-1.30) 05/03/17 03:20 Est GFR (MDRD) Af Amer > 60 (>60) 05/03/17 03:20 Est GFR (MDRD) Non-Af > 60 (>60) 05/03/17 03:20 Glucose 143 mg/dL (65-99) H 05/03/17 03:20 Calcium 7.9 mg/dL (8.5-10.1) L 05/03/17 03:20 Corrected Calcium 8.9 mg/dL (8.5-10.1) 05/03/17 03:20 Total Bilirubin 0.40 mg/dL (0.2-1.0) 05/03/17 03:20 AST 33 Units/L (15-37) 05/03/17 03:20 ALT 19 Units/L (12-78) 05/03/17 03:20 Alkaline Phosphatase 38 Units/L (46-116) L 05/03/17 03:20 B-Natriuretic Peptide 62.2 pg/mL (0-79) 04/30/17 08:32 Total Protein 5.9 g/dL (6.4-8.2) L 05/03/17 03:20 Albumin 2.7 g/dL (3.4-5.0) L 05/03/17 03:20 Globulin 3.2 g/dL (2.5-4.5) 05/03/17 03:20 Albumin/Globulin Ratio 0.8 Ratio (1.1-2.1) L 05/03/17 03:20 Specimen Type Clean catch urine 04/30/17 21:20 Urine Color Yellow (YELLOW) 04/30/17 21:20 Urine Appearance Clear (CLEAR) 04/30/17 21:20 Urine pH 5.0 (5.0 - 8.0) 04/30/17 21:20 Ur Specific [place] 1.015 (1.000-1.030) 04/30/17 21:20 Urine Protein Negative (NEGATIVE) 04/30/17 21:20 Urine Glucose (UA) Negative (NEGATIVE) 04/30/17 21:20 Urine Ketones Negative (NEGATIVE) 04/30/17 21:20 Urine Occult Blood Negative (NEGATIVE) 04/30/17 21:20 Urine Nitrite Negative (NEGATIVE) 04/30/17 21:20 Urine Bilirubin Negative (NEGATIVE) 04/30/17 21:20 Urine Urobilinogen Normal (NORMAL) 04/30/17 21:20 Ur Leukocyte Esterase Negative (NEGATIVE) 04/30/17 21:20 Urine RBC 0-3 /HPF (NEGATIVE) 04/30/17 21:20 Urine WBC 0-3 /HPF (NEGATIVE) 04/30/17 21:20 Ur Squamous Epith Cells Rare /HPF (NEGATIVE) 04/30/17 21:20 Urine Bacteria Negative /HPF (NEGATIVE) 04/30/17 21:20 Ur Culture Indicated? No/not indicated 04/30/17 21:20 - Plan (1) Acute respiratory acidosis Status: Acute Plan: CONTINUE IV ATBX, RESP THERAPY,. AM ABG, CXR, CBC CMP. DISCUSSED PLAN OF CARE FOR DISCHARGE (2) COPD (chronic obstructive pulmonary disease) Status: Acute Qualifiers: COPD type: COPD with acute exacerbation Chronic bronchitis type: C Emphysema type: E Qualified Code(s): J44.1 - Chronic obstructive pulmonary disease with (acute) exacerbation (3) Arthritis Status: Chronic Plan: RESP THERAPY, O2 (4) CHF (congestive heart failure) Status: Chronic Qualifiers: Congestive heart failure type: C Congestive heart failure chronicity: C (5) GERD (gastroesophageal reflux disease) Status: Chronic Qualifiers: Esophagitis presence: E (6) Hypertension Status: Chronic Qualifiers: Hypertension type: H
[2017-05-03] MEDS ORDERED: MAALOX or MYLANTA PO PRN (14:52)
[2017-05-03] MEDS: NORCO 10/325 TAB PO PRN (20:25)
[2017-05-03] MEDS: ATIVAN TAB 1 MG PO SCH (20:25)
[2017-05-03] MEDS: COLACE CAP 100 MG PO SCH (20:25)
[2017-05-03] MEDS: MILK OF MAGNESIA PO SCH (20:26)
[2017-05-03] MEDS: LIPITOR TAB 40 MG PO SCH (20:26)
[2017-05-04] MEDS: DUONEB 0.5 MG/3 MG NEB SCH ×4 (00:37→15:37)
[2017-05-04] MEDS: ROBITUSSIN AC PO SCH ×2 (02:51→09:39)
[2017-05-04] MEDS: NS 1000 ML 1,000 ML IV SCH (04:19)
[2017-05-04 05:50] LABS: ALANINE AMINOTRANSFERASE 20 Units/L (12-78); ALBUMIN 2.9 g/dL (3.4-5.0); ALKALINE PHOSPHATASE 36 Units/L (46-116); ASPARTATE AMINO TRANSFERASE 29 Units/L (15-37); BLOOD UREA NITROGEN 16 mg/dL (7-18); CARBON DIOXIDE 33.1 mmol/L (21-32); CHLORIDE 105 mmol/L (98-107); COR CA(FOR HYPOALB) 8.9 mg/dL (8.5-10.1); CREATININE 0.85 mg/dL (0.70-1.30); GLUCOSE 105 mg/dL (65-99); SODIUM 141 mmol/L (136-145); TOTAL PROTEIN 5.9 g/dL (6.4-8.2); eGFR BLACK RACES > 60 (>60); eGFR NON BLACK RACES > 60 (>60)
[2017-05-04 05:56] LABS: ABG ALLEN TEST POS; ABG BASE EXCESS 8.4 mmol/L (-2.0-2.0); ABG HCO3 34.4 mmol/L (22-26); FRACTIONATED INSPIRED OXYGEN 32
[2017-05-04 06:10] LABS: BASOPHILS % (AUTO) 0 % (0.2-1.0); EOSINOPHILS % (AUTO) 0.1 % (0.9-2.9); HEMATOCRIT 34.1 % (42.0-54.0); HEMOGLOBIN 11.4 g/dL (13.5-18.0); LYMPHOCYTES % (AUTO) 11.5 % (21.0-51.0); MEAN CORPUSCULAR HEMOGLOBIN 28.5 pg (27.0-34.0); MEAN CORPUSCULAR HGB CONC 33.4 g/dL (33.0-35.0); MEAN CORPUSCULAR VOLUME 85.4 fL (80.0-100.0); MEAN PLATELET VOLUME 9.7 fL (7.4-11.0); NEUTROPHILS # (AUTO) 6.8 x10^3/uL (2.2-4.8); NEUTROPHILS % (AUTO) 77.4 % (42.0-75.0); PLATELET COUNT 128 X10^3/uL (150.0-450.0); RED BLOOD COUNT 3.99 X10^6/uL (4.7-6.0); RED CELL DISTRIBUTION WIDTH 15.5 % (11.6-16.5); WHITE BLOOD COUNT 8.8 X10^3/uL (3.6-10.0)
[2017-05-04] MEDS: PriLOSEC PO SCH (09:40)
[2017-05-04] MEDS: UNIPHYL TAB 400 MG PO SCH (09:40)
[2017-05-04] MEDS: ZyrTEC TAB 10 MG PO SCH (09:40)
[2017-05-04] MEDS: LASIX PO SCH (09:40)
[2017-05-04] MEDS: HYTRIN PO SCH (09:41)
[2017-05-04] MEDS: COREG TAB 6.25 MG PO SCH (09:41)
[2017-05-04] MEDS: CELEXA PO SCH (09:41)
[2017-05-04] MEDS: ALDACTONE TAB 25 MG PO SCH (09:42)
[2017-05-04] MEDS: PLAVIX PO SCH (09:42)
[2017-05-04] MEDS: ASPIRIN EC 81 MG PO SCH (09:42)
[2017-05-04] MEDS: LEVAQUIN PREMIX IV 750 MG 750 MG/150 ML BAG IV SCH (09:42)
[2017-05-04] MEDS: NORCO 10/325 TAB PO PRN (10:00)
[2017-05-04] MEDS ORDERED: DIFLUCAN 200 MG IV PREMIX* 200 MG/100 ML BAG IV SCH (11:00)
[2017-05-04 14:12] VITALS: BP 120/56
== END 2017-05-04 15:30 | disposition hospice, home (50) | DRG 190 ==
LOC: ER 07:46 → ICU 10:39
PROVIDERS: ADMIT Internal Medicine; ATTEND Internal Medicine
DX: J44.1 Chronic obstructive pulmonary disease with (acute) exacerbation (principal); E87.2 Acidosis; J18.9 Pneumonia, unspecified organism; Z99.81 Dependence on supplemental oxygen; I50.9 Heart failure, unspecified; K21.9 Gastro-esophageal reflux disease without esophagitis; Z66 Do not resuscitate; I10 Essential (primary) hypertension; F03.90 Unspecified dementia, unspecified severity, without behavioral disturbance, psychotic disturbance, mood disturbance, and anxiety; Z85.118 Personal history of other malignant neoplasm of bronchus and lung
CPT/HCPCS: 36415; 36600; 71010; 71250; 80048; 80053; 81001; 82803; 83880; 85025; 87040; 87070; 87205; 93005; 93010; 94640; 94660; 96365; 96367; 96374; 99284; A4216; A4222; A4618; A7030; J1450; J1956; J2920; J2930; J7620

== ENCOUNTER 2017-07-28 20:30 | Inpatient (IN) | payer OTHER ==
[2017-07-28] MEDS ORDERED: DUONEB 0.5 MG/3 MG NEB ONE (21:10)
--- NOTE | 2017-07-28 21:11 | DR.SOBA ---
HPI - Time Seen Time seen: 21:00 - Primary Care Physician Primary Care Physician: WIL DIETZ - HPI Comment HPI Comment: PATIENT TAKING OUT OF HOSPICE AND BROUGHT TO ED. INCREASING SOB AND WEAKNESS. HISTORY END STAGE COPD. NO FEVER. COUGHING, PRODUCTIVE, YELLOW SPUTUM. - Complaints Chief Complaint Doctors Comments: INCREASING SOB. RT UPPER EXT WEAKNESS. THAT STARTED TODAY. Chief Complaint:: SHORT OF BREATH, NUMBNESS IN RIGHT ARM THAT STARTED THIS AFTERNOON. PATIENT STATES, "I AM A DNR, I HAVE IT IN WRITING SOMEWHERE, I DID NOT WANT TO COME BUT MY FAMILY INSISTED." PATIENT DENIES ANY PAIN. - Reviewed Nurses Notes Reviewed: Yes - Source History Provided: Patient, EMS - Mode of Arrival Mode of Arrival: EMS - Timing Onset of Chief Complaint: 07/28/17 - Duration Duration: Hours - Context Onset:: At Rest PE Risk Factors:: None History of:: COPD, CHF Currently on:: Inhaled Bronchodilators Prehospital Care:: O2 - Modifying Factors Worsens:: Nothing Improves:: Nothing - Associated Signs and Symptoms Associated Signs and Symptoms: Wheeze, Cough, Leg Swelling, Numbness, Hands Numbness - If Chest Pain Quality: Sharp - If Cough Cough: Productive, Yellow PMH - PMH Past Medical History: Yes Past Medical History: Anemia, Angina, Anxiety, Arthritis, CHF, COPD, Coronary Artery Disease, Depression, Dyslipidemia, GERD, Hypertension, [place] Past Surgical History: Yes Surgical History: Ortho Surgery, Tonsillectomy - Family History History of Family Medical Conditions: Yes Family Medical History: Cancer, Heart Failure, Hypertension - Social History Alcohol Use: None Do you use any recreational Drugs:: No Lives With: Family Lives Where: Home - infectious screening Have you traveled outside the country in the last 6 months?: No Isolation: Standard ROS - Review of Systems Constitutional: Weakness, Fatigue, Loss of Appetite. negative: Chills, Diaphoresis, Fever Eyes: negative: Eye Pain, Discharge ENTM: Nose Congestion. negative: Ear Pain, Nose Discharge, Throat Pain Respiratoy: Productive Cough, Short of Breath, Wheezing. negative: Hemoptysis Cardiovascular: Edema Gastrointestinal/Abdominal: No Symptoms Reported Genitourinary: No Symptoms Reported Neurological: Headache, Weakness, Dizziness Musculoskeletal: Back Pain Integumentary: No Symptoms Reported Hematologic/Lymphatic: No Symptoms Reported Endocrine: No Symptoms Reported All Other Systems: Reviewed and Negative PE - Vital Signs Vitals: Temperature 97.8 F Pulse Rate 83 Respiratory Rate 14 Blood Pressure [Left Arm] 120/56 Blood Pressure [Right Arm] 125/80 Blood Pressure 163/106 O2 Sat by Pulse Oximetry 76 - General Limitations: No Limitations General Appearance: Alert - Head Head Exam: Normal Inspection - Eyes Eye exam: Normal Appearance - ENT ENT Exam: Normal External Ear Exam - Neck Neck Exam: Trachea Midline - Chest Chest Inspection: Symmetric Chest Wall Rise - Respiratory Respiratory Exam: Normal Lung Sounds Bilat Respiratory Exam: Bilateral Clear to Auscultation - Cardiovascular Cardiovascular Exam: Regular Rate, Normal Rhythm, Normal Heart Sounds - Abdominal Exam Abdominal Exam: Normal Bowel Sounds, Distention, Tenderness - Extremities Extremities Exam: Normal Inspection, Tenderness - Back Back Exam: Paraspinal Tenderness - Neurologic Neurological Exam: Alert, Oriented X3 - Psychiatric Psychiatric Exam: Anxious - Skin Skin Exam: Erythema MDM - Additional Information Obtained Additional Information Obtained From: Family - Differential Diagnosis Differential Diagnosis: CHF, COPD, Mycardial Infarction, Pneumonia, Pneumothorax , Respiratory Failure, Respiratory Insufficiency Course - Treatment Treatment: SEE ORDERS - Consultation Consultation Comments: DISCUSS PATIENT WITH DR. LOPEZ. HE WILL ADMIT PATIENT. - Education/Counseling Education/Counseling: Patient, Family, Education Educated On: Treatment, Diagnosis ROR - Labs Reviewed Laboratory Results Reviewed?: Yes Result Diagrams: 07/29/17 05:02 07/29/17 05:02 Laboratory: WBC 8.8 X10^3/uL (3.6-10.0) 07/28/17 21:17 RBC 4.30 X10^6/uL (4.7-6.0) L 07/28/17 21:17 Hgb 12.4 g/dL (13.5-18.0) L 07/28/17 21:17 Hct 37.8 % (42.0-54.0) L 07/28/17 21:17 MCV 88.0 fL (80.0-100.0) 07/28/17 21:17 MCH 28.7 pg (27.0-34.0) 07/28/17 21:17 MCHC 32.7 g/dL (33.0-35.0) L 07/28/17 21: RDW 15.5 % (11.6-16.5) 07/28/17 21:17 Plt Count 171 X10^3/uL (150.0-450.0) 07/28/17 21:17 MPV 8.7 fL (7.4-11.0) 07/28/17 21:17 Neut % 75.9 % (42.0-75.0) H 07/28/17 21:17 Lymph % 9.5 % (21.0-51.0) L 07/28/17 21:17 [place] % 10.9 % (0.0-13.0) 07/28/17 21:17 Eos % 3.0 % (0.9-2.9) H 07/28/17 21:17 Baso % 0.7 % (0.2-1.0) 07/28/17 21:17 Neut # 6.7 x10^3/uL (2.2-4.8) H 07/28/17 21:17 Lymph # 0.8 X10^3/uL (1.3-2.9) L 07/28/17 21:17 [place] # 1.0 x10^3/uL (0.3-0.8) H 07/28/17 21:17 Eos # 0.3 x10^3/uL (0.0-0.2) H 07/28/17 21:17 Baso # 0.1 X10^3/uL (0.0-0.1) 07/28/17 21:17 Absolute Nucleated RBC 0.0 /100WBC 07/28/17 21:17 Sodium 142 mmol/L (136-145) 07/28/17 21:17 Corrected Sodium 142 mmol/L (136-145) 07/28/17 21:17 Potassium 4.2 mmol/L (3.5-5.1) 07/28/17 21:17 Chloride 99 mmol/L (98-107) 07/28/17 21:17 Carbon Dioxide 43.4 mmol/L (21-32) H* 07/28/17 21:17 BUN 16 mg/dL (7-18) 07/28/17 21:17 Creatinine 0.92 mg/dL (0.70-1.30) 07/28/17 21:17 Est GFR (MDRD) Af Amer > 60 (>60) 07/28/17 21:17 Est GFR (MDRD) Non-Af > 60 (>60) 07/28/17 21:17 Glucose 115 mg/dL (65-99) H 07/28/17 21:17 Calcium 9.3 mg/dL (8.5-10.1) 07/28/17 21:17 Corrected Calcium 10.0 mg/dL (8.5-10.1) 07/28/17 21:17 Total Bilirubin 0.40 mg/dL (0.2-1.0) 07/28/17 21:17 AST 26 Units/L (15-37) 07/28/17 21:17 ALT 13 Units/L (12-78) 07/28/17 21:17 Alkaline Phosphatase 64 Units/L (46-116) 07/28/17 21:17 Creatine Kinase 288 Units/L (39-308) 07/28/17 21:17 CK-MB (CK-2) 3.7 ng/mL (0-4.0) 07/28/17 21:17 CK/CKMB % Calc 1.3 % (<4) 07/28/17 21:17 Troponin I 0.02 ng/mL (0-1.5) 07/28/17 21:17 Total Protein 6.9 g/dL (6.4-8.2) 07/28/17 21:17 Albumin 3.1 g/dL (3.4-5.0) L 07/28/17 21:17 Globulin 3.8 g/dL (2.5-4.5) 07/28/17 21:17 Albumin/Globulin Ratio 0.8 Ratio (1.1-2.1) L 07/28/17 21:17 - XRAY XRAY Interpreted by: Radiologist XRAY Findings: REPORT DISCUSS WITH PATIENT AND . - EKG Rhythm: NSR (EKG NOTED) - Diagnosis Discharge Problem: COPD (chronic obstructive pulmonary disease) with acute bronchitis, Respiratory distress CHF (congestive heart failure) Qualifiers: Congestive heart failure type: combined Congestive heart failure chronicity: acute on chronic Qualified Code(s): I50.43 - Acute on chronic combined systolic (congestive) and diastolic (congestive) heart failure - Discharge Plan Disposition: ADMITTED INPATIENT Condition: Stable - Follow ups/Referrals - Instructions
[2017-07-28 21:29] LABS: BASOPHILS # (AUTO) 0.1 X10^3/uL (0.0-0.1); BASOPHILS % (AUTO) 0.7 % (0.2-1.0); EOSINOPHILS # (AUTO) 0.3 x10^3/uL (0.0-0.2); HEMATOCRIT 37.8 % (42.0-54.0); HEMOGLOBIN 12.4 g/dL (13.5-18.0); LYMPHOCYTES # (AUTO) 0.8 X10^3/uL (1.3-2.9); LYMPHOCYTES % (AUTO) 9.5 % (21.0-51.0); MEAN CORPUSCULAR HEMOGLOBIN 28.7 pg (27.0-34.0); MEAN CORPUSCULAR HGB CONC 32.7 g/dL (33.0-35.0); MEAN PLATELET VOLUME 8.7 fL (7.4-11.0); MONOCYTES % (AUTO) 10.9 % (0.0-13.0); NEUTROPHILS # (AUTO) 6.7 x10^3/uL (2.2-4.8); NEUTROPHILS % (AUTO) 75.9 % (42.0-75.0); PLATELET COUNT 171 X10^3/uL (150.0-450.0); RED CELL DISTRIBUTION WIDTH 15.5 % (11.6-16.5); WHITE BLOOD COUNT 8.8 X10^3/uL (3.6-10.0)
[2017-07-28 21:47] LABS: ALANINE AMINOTRANSFERASE 13 Units/L (12-78); ALBUMIN 3.1 g/dL (3.4-5.0); ALKALINE PHOSPHATASE 64 Units/L (46-116); ASPARTATE AMINO TRANSFERASE 26 Units/L (15-37); BLOOD UREA NITROGEN 16 mg/dL (7-18); CALCIUM 9.3 mg/dL (8.5-10.1); CHLORIDE 99 mmol/L (98-107); CKMB % 1.3 % (<4); COR NA(FOR HYPERGLY) 142 mmol/L (136-145); CREATINE KINASE 288 Units/L (39-308); CREATINE KINASE MB 3.7 ng/mL (0-4.0); CREATININE 0.92 mg/dL (0.70-1.30); SODIUM 142 mmol/L (136-145); TOTAL PROTEIN 6.9 g/dL (6.4-8.2); TROPONIN I 0.02 ng/mL (0-1.5); eGFR BLACK RACES > 60 (>60); eGFR NON BLACK RACES > 60 (>60)
[2017-07-28 21:55] LABS: CARBON DIOXIDE 43.4 mmol/L (21-32)
[2017-07-28 22:06] LABS: BILIRUBIN,URINE NEGATIVE (NEGATIVE); BLOOD/HEMOGLOBIN,URINE NEGATIVE (NEGATIVE); GLUCOSE, URINE NEGATIVE (NEGATIVE); KETONES,URINE NEGATIVE (NEGATIVE); LEUKOCYTE ESTERASE ,URINE NEGATIVE (NEGATIVE); NITRITES,URINE NEGATIVE (NEGATIVE); PROTEIN,URINE 2+ (NEGATIVE); UROBILINOGEN,URINE NORMAL (NORMAL)
--- NOTE | 2017-07-28 22:07 | CT ---
CT head without contrast Indication: Right arm numbness and dyspnea. Technique: Axial images from the skullbase to the vertex without contrast. Coronal and sagittal refor mats provided. Comparison: 10/23/2013. Findings: There is no acute intracranial hemorrhage, mass or mass effect. No extra-axial fluid collec tion abnormal of hypoattenuation seen to suggest infarction ventricles and sulci show ex vacuo enlarg ement. Review of bone windows shows no osseous lesion. Paranasal sinuses mastoid air cells are clear. Impression: No acute intracranial abnormality. Reported By:
[2017-07-28 22:16] LABS: APPEARANCE,URINE CLEAR (CLEAR); BACTERIA,URINE NEGATIVE /HPF (NEGATIVE); COLOR,URINE YELLOW (YELLOW); RBC,URINE 0-3 /HPF (NEGATIVE); SQUAMOUS EPITHELIAL CELL,UR RARE /HPF (NEGATIVE)
[2017-07-28 22:42] LABS: ABG ALLEN TEST POS; ABG HCO3 48.8 mmol/L (22-26)
--- NOTE | 2017-07-28 23:07 | RAD ---
Chest, one view Indication: Chest pain, shortness of breath Comparison: 05/03/2017 Findings: Heart size is normal. Increased bilateral interstitial markings and chronic opacities withi n the right lung apex, suggestive for parenchymal scarring appear unchanged. No new focal infiltrate, effusion or pneumothorax is identified. Osseous thorax is unremarkable. Impression: No acute chest process or change since prior. Reported By:
[2017-07-28] MEDS ORDERED: SOLU-Medrol 125 MG VIAL IVP ONE (23:10)
[2017-07-28] MEDS ORDERED: SOLU-Medrol 125 MG VIAL ONE (23:22)
[2017-07-28] MEDS ORDERED: FORTAZ or TAZICEF INJ ONE (23:27)
[2017-07-28] MEDS ORDERED: NS 50 ML IV + SPIKE MINIBAG* 50 ML IV ONE (23:27)
[2017-07-28] MEDS ORDERED: NS 500 ML IV 500 ML IV ONE (23:31)
[2017-07-28] MEDS: FORTAZ or TAZICEF INJ 1 GM in NS 50 ML IV + SPIKE MINIBAG* 50 ML IV SCH (23:38)
[2017-07-29 00:40] VITALS: BMI 22.8
[2017-07-29] MEDS: DUONEB 0.5 MG/3 MG NEB SCH ×6 (01:29→21:45)
[2017-07-29] MEDS: TYLENOL 325 MG TAB PO PRN ×2 (01:45→19:45)
[2017-07-29] MEDS: CIPRO IV 200 MG PREMIX* 200 MG/100 ML BAG IV SCH ×2 (05:15→09:00)
[2017-07-29 05:30] LABS: BASOPHILS % (AUTO) 0.4 % (0.2-1.0); HEMATOCRIT 35.3 % (42.0-54.0); HEMOGLOBIN 11.6 g/dL (13.5-18.0); LYMPHOCYTES # (AUTO) 0.4 X10^3/uL (1.3-2.9); LYMPHOCYTES % (AUTO) 4.2 % (21.0-51.0); MEAN CORPUSCULAR HEMOGLOBIN 28.8 pg (27.0-34.0); MEAN CORPUSCULAR HGB CONC 32.9 g/dL (33.0-35.0); MEAN CORPUSCULAR VOLUME 87.4 fL (80.0-100.0); MEAN PLATELET VOLUME 9.3 fL (7.4-11.0); MONOCYTES # (AUTO) 0.1 x10^3/uL (0.3-0.8); MONOCYTES % (AUTO) 1.3 % (0.0-13.0); NEUTROPHILS # (AUTO) 9.4 x10^3/uL (2.2-4.8); NEUTROPHILS % (AUTO) 94.1 % (42.0-75.0); PLATELET COUNT 162 X10^3/uL (150.0-450.0); RED BLOOD COUNT 4.04 X10^6/uL (4.7-6.0); RED CELL DISTRIBUTION WIDTH 14.7 % (11.6-16.5)
[2017-07-29] MEDS: FORTAZ or TAZICEF INJ 1 GM in NS 50 ML IV + SPIKE MINIBAG* 50 ML IV SCH ×3 (05:33→21:25)
[2017-07-29 05:48] LABS: ALANINE AMINOTRANSFERASE 13 Units/L (12-78); ALBUMIN 2.9 g/dL (3.4-5.0); ALKALINE PHOSPHATASE 57 Units/L (46-116); ASPARTATE AMINO TRANSFERASE 26 Units/L (15-37); BLOOD UREA NITROGEN 18 mg/dL (7-18); CALCIUM 9.2 mg/dL (8.5-10.1); CARBON DIOXIDE 38.9 mmol/L (21-32); CHLORIDE 96 mmol/L (98-107); COR CA(FOR HYPOALB) 10.1 mg/dL (8.5-10.1); COR NA(FOR HYPERGLY) 140 mmol/L (136-145); CREATININE 0.91 mg/dL (0.70-1.30); MAGNESIUM 1.9 mg/dL (1.7-2.9); SODIUM 139 mmol/L (136-145); TOTAL PROTEIN 6.6 g/dL (6.4-8.2); eGFR BLACK RACES > 60 (>60); eGFR NON BLACK RACES > 60 (>60)
[2017-07-29 05:51] LABS: CKMB % 0.5 % (<4); CREATINE KINASE MB 1.2 ng/mL (0-4.0); TROPONIN I 0.03 ng/mL (0-1.5)
[2017-07-29 06:36] LABS: PLATELET MORPHOLOGY COMMENT NORMAL (NORMAL)
[2017-07-29] MEDS: SOLU-Medrol 40 MG VIAL IVP SCH ×3 (09:00→21:24)
[2017-07-29 11:48] LABS: CKMB % 0.4 % (<4); CREATINE KINASE 244 Units/L (39-308); CREATINE KINASE MB < 1.0 ng/mL (0-4.0); TROPONIN I 0.03 ng/mL (0-1.5)
--- NOTE | 2017-07-29 13:26 | DR.H&P ---
H&P - Allergies Allergies/Adverse Reactions: Allergies Allergy/AdvReac Type Severity Reaction Status Date / Time penicillin G AdvReac Verified 07/28/17 21:02 - Past Medical History Past Medical History: Anemia, Angina, Anxiety, Arthritis, CHF, COPD, Coronary Artery Disease, Depression, Dyslipidemia, GERD, Hypertension, [place] Additional Medical History: Hx BPH, Degenerative Disc Disease, Hx Skin Cancer - Past Surgical History Surgical History: Ortho Surgery, Tonsillectomy Additional Surgical History: 2 Inguinal Hernia Repairs, 1 Umbilical Hernia Repair - Family History Family Medical History: Cancer, Heart Failure, Hypertension - Social History Does patient currently use any type of tobacco product: No Type of Tobacco Use: Cigarettes How many years tobacco product used: 55 Alcohol Use: None Drug Use: None - Medications Home Medications: Atorvastatin Calcium 1 tab PO HS 07/29/17 [History Confirmed 07/29/17] Fluticasone Nasal [place] [FLONASE NASAL SPRAY *] 1 inh NS BID 07/29/17 [History Confirmed 07/29/17] Fluticasone/Vilanterol [Breo Ellipta 100-25 Mcg INH] 1 inh INH DAILY 07/29/17 [ History Confirmed 07/29/17] - Physical Exam Vital Signs: Temperature 100.3 F Pulse Rate [Apical] 74 Pulse Rate 101 Respiratory Rate 34 Blood Pressure [Left Arm] 144/67 Blood Pressure [Right Arm] 125/80 Blood Pressure 163/106 O2 Sat by Pulse Oximetry 95
[2017-07-29] MEDS: LIPITOR TAB 40 MG PO SCH (21:25)
[2017-07-29] MEDS: FLONASE NASAL SPRAY ENOSTRIL SCH (21:25)
[2017-07-29] MEDS: CIPRO IV 400 MG PREMIX* 400 MG/200 ML IV.SOLN. IV SCH (21:25)
[2017-07-30] MEDS: DUONEB 0.5 MG/3 MG NEB SCH ×6 (00:43→20:29)
[2017-07-30] MEDS: SOLU-Medrol 40 MG VIAL IVP SCH ×3 (05:05→21:11)
[2017-07-30] MEDS: FORTAZ or TAZICEF INJ 1 GM in NS 50 ML IV + SPIKE MINIBAG* 50 ML IV SCH ×3 (05:05→21:10)
[2017-07-30 06:08] LABS: BASOPHILS % (AUTO) 0.2 % (0.2-1.0); HEMATOCRIT 32.6 % (42.0-54.0); HEMOGLOBIN 10.8 g/dL (13.5-18.0); LYMPHOCYTES # (AUTO) 0.6 X10^3/uL (1.3-2.9); LYMPHOCYTES % (AUTO) 4.9 % (21.0-51.0); MEAN CORPUSCULAR HEMOGLOBIN 28.5 pg (27.0-34.0); MEAN CORPUSCULAR HGB CONC 33.2 g/dL (33.0-35.0); MEAN CORPUSCULAR VOLUME 85.9 fL (80.0-100.0); MEAN PLATELET VOLUME 9.5 fL (7.4-11.0); MONOCYTES # (AUTO) 0.5 x10^3/uL (0.3-0.8); MONOCYTES % (AUTO) 3.7 % (0.0-13.0); NEUTROPHILS # (AUTO) 11.1 x10^3/uL (2.2-4.8); NEUTROPHILS % (AUTO) 91.2 % (42.0-75.0); PLATELET COUNT 166 X10^3/uL (150.0-450.0); RED CELL DISTRIBUTION WIDTH 14.9 % (11.6-16.5); WHITE BLOOD COUNT 12.2 X10^3/uL (3.6-10.0)
[2017-07-30 06:17] LABS: ALANINE AMINOTRANSFERASE 13 Units/L (12-78); ALBUMIN 2.9 g/dL (3.4-5.0); ALKALINE PHOSPHATASE 50 Units/L (46-116); ASPARTATE AMINO TRANSFERASE 25 Units/L (15-37); BLOOD UREA NITROGEN 22 mg/dL (7-18); CALCIUM 9.2 mg/dL (8.5-10.1); CARBON DIOXIDE 37.2 mmol/L (21-32); CHLORIDE 96 mmol/L (98-107); COR CA(FOR HYPOALB) 10.1 mg/dL (8.5-10.1); COR NA(FOR HYPERGLY) 140 mmol/L (136-145); CREATININE 0.99 mg/dL (0.70-1.30); SODIUM 139 mmol/L (136-145); TOTAL PROTEIN 6.4 g/dL (6.4-8.2); eGFR BLACK RACES > 60 (>60); eGFR NON BLACK RACES > 60 (>60)
[2017-07-30 06:27] LABS: ABG BASE EXCESS 17.4 mmol/L (-2.0-2.0)
[2017-07-30 06:28] LABS: ABG ALLEN TEST POS
[2017-07-30 07:38] LABS: PLATELET MORPHOLOGY COMMENT NORMAL (NORMAL)
[2017-07-30 07:41] LABS: BAND NEUTROPHILS % 3 % (0-10)
[2017-07-30] MEDS: CIPRO IV 400 MG PREMIX* 400 MG/200 ML IV.SOLN. IV SCH ×2 (08:49→20:26)
[2017-07-30] MEDS: FLONASE NASAL SPRAY ENOSTRIL SCH ×2 (08:49→20:27)
[2017-07-30] MEDS ORDERED: FLUTICASONE INH SCH (09:00)
[2017-07-30] MEDS ORDERED: VILANTEROL INH SCH (09:00)
[2017-07-30] MEDS ORDERED: PATIENT'S HOME MEDICATION (Citalopram Hydrobromide [Celexa] 1 TAB) PO SCH (09:45)
[2017-07-30] MEDS ORDERED: PATIENT'S HOME MEDICATION (Cetirizine Hcl [Zyrtec] 1 TAB) PO SCH (09:45)
[2017-07-30] MEDS ORDERED: MAALOX or MYLANTA PO PRN (10:00)
[2017-07-30] MEDS: ASPIRIN EC 81 MG PO SCH (10:42)
[2017-07-30] MEDS: COREG TAB 6.25 MG PO SCH ×2 (10:42→20:26)
[2017-07-30] MEDS: PLAVIX PO SCH (10:42)
[2017-07-30] MEDS: PriLOSEC PO SCH ×2 (10:43→20:26)
[2017-07-30] MEDS: PREDNISONE TAB 5 MG PO SCH (10:43)
[2017-07-30] MEDS: NORCO 10/325 TAB PO PRN ×2 (11:37→18:13)
[2017-07-30] MEDS: TESSALON PERLES PO PRN (14:13)
[2017-07-30] MEDS: ROBITUSSIN AC PO PRN (14:14)
[2017-07-30] MEDS: FLEXERIL TAB 10 MG PO SCH (20:26)
[2017-07-30] MEDS: LIPITOR TAB 40 MG PO SCH (20:26)
[2017-07-30] MEDS: ALDACTONE TAB 25 MG PO SCH (20:26)
[2017-07-30] MEDS: MOTRIN TAB 600 MG PO SCH (20:26)
[2017-07-30] MEDS: HYTRIN PO SCH (20:27)
[2017-07-30] MEDS ORDERED: CYCLOBENZAPRINE HCL PO SCH (21:00)
[2017-07-30] MEDS ORDERED: LIPITOR TAB 40 MG PO SCH (21:00)
--- NOTE | 2017-07-30 22:00 | PCM.PROG ---
Progress Note - Progress Note for Day of Date: 07/30/17 - Subjective Subjective: THE PATIENT IS A 76YO WM WHO IS UNDER HOSPICE CARE. PATIENT ADMITTED DUE TO SOB WITH COPD EXACERBATION. PATIENT CONTINUES TO HAVE COMPLAINTS OF SOB WITH NONPRODUCTIVE COUGH. DOES COMPLAIN OF BACK PAIN. - Past Medical Family Social History Past Med/Fam/Surg Hx: No changes since H&P Allergies: Allergies penicillin G Adverse Reaction (Verified 07/28/17 21:02) - Review of Systems ROS: No change since H&P - Vital Signs and I&O's Vital Signs: Temperature 98.9 F Pulse Rate [Apical] 64 Pulse Rate 82 Respiratory Rate 17 Blood Pressure [Left Arm] 141/65 Blood Pressure [Right Arm] 125/80 Blood Pressure 163/106 O2 Sat by Pulse Oximetry 92 Intake and Output: Intake & Output 07/28/17 07/29/17 07/30/17 07/31/17 11:59 11:59 11:59 11:59 Intake Total 723 1625 1170 Output Total 500 875 300 Balance 223 750 870 - Physical Exam Oriented: Normal Eyes: Normal Ear: Normal Nose: Normal Throat: Normal Respiratory: Diminished, Wheezes Cardiovascular: Normal : Other (AKERS) Auscultation: Bowel Sounds: Normal Palpation: Normal Tenderness: Normal Skin: Normal Musculoskeletal: Back:Thoracic, Back:Lumbar, Tender Psychiatric: Normal Mood Description: Calm Affect: Normal Speech Pattern: Appropriate - Laboratory and Diagnostics Result Diagrams: 07/30/17 04:00 07/29/17 05:02 Labs: 07/29/17 02:09 Sputum - Expectorated Sputum Sputum Culture - Preliminary 07/29/17 02:09 Sputum - Expectorated Sputum - Final Laboratory WBC 12.2 X10^3/uL (3.6-10.0) H 07/30/17 04:00 RBC 3.80 X10^6/uL (4.7-6.0) L 07/30/17 04:00 Hgb 10.8 g/dL (13.5-18.0) L 07/30/17 04:00 Hct 32.6 % (42.0-54.0) L 07/30/17 04:00 MCV 85.9 fL (80.0-100.0) 07/30/17 04:00 MCH 28.5 pg (27.0-34.0) 07/30/17 04:00 MCHC 33.2 g/dL (33.0-35.0) 07/30/17 04:00 RDW 14.9 % (11.6-16.5) 07/30/17 04:00 Plt Count 166 X10^3/uL (150.0-450.0) 07/30/17 04:00 Plt Count Comment Adequate (ADEQUATE) 07/30/17 04:00 MPV 9.5 fL (7.4-11.0) 07/30/17 04:00 Neut % 91.2 % (42.0-75.0) H 07/30/17 04:00 Lymph % 4.9 % (21.0-51.0) L 07/30/17 04:00 [place] % 3.7 % (0.0-13.0) 07/30/17 04:00 Eos % 0.0 % (0.9-2.9) L 07/30/17 04:00 Baso % 0.2 % (0.2-1.0) 07/30/17 04:00 Neut # 11.1 x10^3/uL (2.2-4.8) H 07/30/17 04:00 Lymph # 0.6 X10^3/uL (1.3-2.9) L 07/30/17 04:00 [place] # 0.5 x10^3/uL (0.3-0.8) 07/30/17 04:00 Eos # 0.0 x10^3/uL (0.0-0.2) 07/30/17 04:00 Baso # 0.0 X10^3/uL (0.0-0.1) 07/30/17 04:00 Absolute Nucleated RBC 0.1 /100WBC 07/30/17 04:00 Total Counted 100 07/30/17 04:00 Neutrophils % (Manual) 90 % (39-76) H 07/30/17 04:00 Band Neutrophils % 3 % (0-10) 07/30/17 04:00 Lymphocytes % (Manual) 4 % (13-43) L 07/30/17 04:00 Monocytes % (Manual) 3 % (4-9) L 07/30/17 04:00 Eosinophils % (Manual) 2 % (0-6) 07/29/17 05:02 Plt Morphology Comment Normal (NORMAL) 07/30/17 04:00 RBC Morphology Normal (NORMAL) 07/30/17 04:00 Sample Site R rad 07/30/17 06:13 ABG pH 7.550 (7.35-7.45) H 07/30/17 06:13 ABG pCO2 48.0 mmHg (35.0-45.0) H 07/30/17 06:13 ABG pO2 51.0 mmHg (80.0-100.0) L 07/30/17 06:13 ABG HCO3 42.0 mmol/L (22-26) H* 07/30/17 06:13 ABG O2 Saturation 90.0 % (90-100) 07/30/17 06:13 ABG Base Excess 17.4 mmol/L (-2.0-2.0) H 07/30/17 06:13 Sam Test Pos 07/30/17 06:13 A-a Gradient 103.0 mmHg 07/30/17 06:13 FiO2 30.000 07/30/17 06:13 Blood Gas Comments [facility], [facility] 07/30/17 06:13 Sodium 139 mmol/L (136-145) 07/29/17 05:02 Corrected Sodium 140 mmol/L (136-145) 07/29/17 05:02 Potassium 4.4 mmol/L (3.5-5.1) 07/29/17 05:02 Chloride 96 mmol/L (98-107) L 07/29/17 05:02 Carbon Dioxide 38.9 mmol/L (21-32) H 07/29/17 05:02 BUN 18 mg/dL (7-18) 07/29/17 05:02 Creatinine 0.91 mg/dL (0.70-1.30) 07/29/17 05:02 Est GFR (MDRD) Af Amer > 60 (>60) 07/29/17 05:02 Est GFR (MDRD) Non-Af > 60 (>60) 07/29/17 05:02 Glucose 156 mg/dL (65-99) H 07/29/17 05:02 Calcium 9.2 mg/dL (8.5-10.1) 07/29/17 05:02 Corrected Calcium 10.1 mg/dL (8.5-10.1) 07/29/17 05:02 Magnesium 1.9 mg/dL (1.7-2.9) 07/29/17 05:02 Total Bilirubin 0.50 mg/dL (0.2-1.0) 07/29/17 05:02 AST 26 Units/L (15-37) 07/29/17 05:02 ALT 13 Units/L (12-78) 07/29/17 05:02 Alkaline Phosphatase 57 Units/L (46-116) 07/29/17 05:02 Creatine Kinase 244 Units/L (39-308) 07/29/17 10:57 CK-MB (CK-2) < 1.0 ng/mL (0-4.0) 07/29/17 10:57 CK/CKMB % Calc 0.4 % (<4) 07/29/17 10:57 Troponin I 0.03 ng/mL (0-1.5) 07/29/17 10:57 Total Protein 6.6 g/dL (6.4-8.2) 07/29/17 05:02 Albumin 2.9 g/dL (3.4-5.0) L 07/29/17 05:02 Globulin 3.7 g/dL (2.5-4.5) 07/29/17 05:02 Albumin/Globulin Ratio 0.8 Ratio (1.1-2.1) L 07/29/17 05:02 Specimen Type Catherized urine 07/28/17 22:00 Urine Color Yellow (YELLOW) 07/28/17 22:00 Urine Appearance Clear (CLEAR) 07/28/17 22:00 Urine pH 6.0 (5.0 - 8.0) 07/28/17 22:00 Ur Specific [place] 1.020 (1.000-1.030) 07/28/17 22:00 Urine Protein 2+ (NEGATIVE) 07/28/17 22:00 Urine Glucose (UA) Negative (NEGATIVE) 07/28/17 22:00 Urine Ketones Negative (NEGATIVE) 07/28/17 22:00 Urine Occult Blood Negative (NEGATIVE) 07/28/17 22:00 Urine Nitrite Negative (NEGATIVE) 07/28/17 22:00 Urine Bilirubin Negative (NEGATIVE) 07/28/17 22:00 Urine Urobilinogen Normal (NORMAL) 07/28/17 22:00 Ur Leukocyte Esterase Negative (NEGATIVE) 07/28/17 22:00 Urine RBC 0-3 /HPF (NEGATIVE) 07/28/17 22:00 Urine WBC 0-3 /HPF (NEGATIVE) 07/28/17 22:00 Ur Squamous Epith Cells Rare /HPF (NEGATIVE) 07/28/17 22:00 Urine Bacteria Negative /HPF (NEGATIVE) 07/28/17 22:00 Ur Culture Indicated? No/not indicated 07/28/17 22:00 Radiology Reviewed: Yes - Plan (1) Hypoalbuminemia Status: Acute Plan: INCREASE DIETARY PROTEIN (2) COPD (chronic obstructive pulmonary disease) with acute bronchitis Status: Acute Plan: IV STEROIDS, ANTIBIOTICS, O2,NEBS (3) Respiratory distress Status: Acute Plan: O2,NEBS (4) Degenerative disc disease Status: Chronic Qualifiers: Spinal region: lumbar Qualified Code(s): M51.36 - Other intervertebral disc degeneration, lumbar region Plan: PAIN MED NEEDED (5) Hypertension Status: Chronic Qualifiers: Hypertension type: essential hypertension Qualified Code(s): I10 - Essential (primary) hypertension Plan: MONITOR BP AND ADMINISTER ANTI-HYPERTENSIVES.
[2017-07-31] MEDS: DUONEB 0.5 MG/3 MG NEB SCH ×6 (00:40→21:16)
[2017-07-31] MEDS: SOLU-Medrol 40 MG VIAL IVP SCH ×3 (05:12→21:43)
[2017-07-31] MEDS: FORTAZ or TAZICEF INJ 1 GM in NS 50 ML IV + SPIKE MINIBAG* 50 ML IV SCH ×3 (05:12→21:43)
[2017-07-31 05:23] LABS: BLOOD UREA NITROGEN 23 mg/dL (7-18); CALCIUM 8.7 mg/dL (8.5-10.1); CARBON DIOXIDE 35.4 mmol/L (21-32); CHLORIDE 99 mmol/L (98-107); COR NA(FOR HYPERGLY) 139 mmol/L (136-145); CREATININE 0.94 mg/dL (0.70-1.30); SODIUM 138 mmol/L (136-145); eGFR BLACK RACES > 60 (>60); eGFR NON BLACK RACES > 60 (>60)
[2017-07-31 05:39] LABS: BASOPHILS % (AUTO) 0.1 % (0.2-1.0); HEMATOCRIT 32.6 % (42.0-54.0); HEMOGLOBIN 10.8 g/dL (13.5-18.0); LYMPHOCYTES # (AUTO) 0.5 X10^3/uL (1.3-2.9); LYMPHOCYTES % (AUTO) 4.7 % (21.0-51.0); MEAN CORPUSCULAR HEMOGLOBIN 28.8 pg (27.0-34.0); MEAN CORPUSCULAR HGB CONC 33.2 g/dL (33.0-35.0); MEAN CORPUSCULAR VOLUME 86.9 fL (80.0-100.0); MEAN PLATELET VOLUME 9.4 fL (7.4-11.0); MONOCYTES # (AUTO) 0.3 x10^3/uL (0.3-0.8); MONOCYTES % (AUTO) 3.2 % (0.0-13.0); NEUTROPHILS # (AUTO) 9.2 x10^3/uL (2.2-4.8); PLATELET COUNT 164 X10^3/uL (150.0-450.0); RED BLOOD COUNT 3.75 X10^6/uL (4.7-6.0)
[2017-07-31 05:56] LABS: PLATELET MORPHOLOGY COMMENT NORMAL (NORMAL)
[2017-07-31] MEDS: CIPRO IV 400 MG PREMIX* 400 MG/200 ML IV.SOLN. IV SCH ×2 (08:41→21:44)
[2017-07-31] MEDS: PLAVIX PO SCH (08:42)
[2017-07-31] MEDS: ASPIRIN EC 81 MG PO SCH (08:43)
[2017-07-31] MEDS: PriLOSEC PO SCH ×2 (08:43→21:44)
[2017-07-31] MEDS: ALDACTONE TAB 25 MG PO SCH ×2 (08:43→21:45)
[2017-07-31] MEDS: ZyrTEC TAB 10 MG PO SCH (08:43)
[2017-07-31] MEDS: NORCO 10/325 TAB PO PRN ×2 (08:43→21:50)
[2017-07-31] MEDS: PREDNISONE TAB 5 MG PO SCH (08:43)
[2017-07-31] MEDS: COREG TAB 6.25 MG PO SCH ×2 (08:43→21:45)
[2017-07-31] MEDS: TESSALON PERLES PO PRN (08:43)
[2017-07-31] MEDS: FLONASE NASAL SPRAY ENOSTRIL SCH ×2 (08:44→21:47)
[2017-07-31] MEDS: ATIVAN TAB 0.5 MG PO SCH (08:44)
[2017-07-31] MEDS: CELEXA PO SCH (08:44)
[2017-07-31] MEDS: MOTRIN TAB 600 MG PO SCH ×2 (08:46→21:46)
--- NOTE | 2017-07-31 21:00 | PCM.PROG ---
Progress Note - Progress Note for Day of Date: 07/31/17 - Subjective Subjective: THE PATIENT IS A 76YO WM WHO IS UNDER HOSPICE CARE. PATIENT ADMITTED DUE TO SOB WITH COPD EXACERBATION. PATIENT STATES HE IS NOT SOB YESTERDAY. CONTINUES TO HAVE NONPRODUCTIVE COUGH. bACK PAIN BETTER. - Past Medical Family Social History Past Med/Fam/Surg Hx: No changes since H&P Allergies: Allergies penicillin G Adverse Reaction (Verified 07/28/17 21:02) - Review of Systems ROS: No change since H&P - Vital Signs and I&O's Vital Signs: Temperature 98.4 F Pulse Rate [Apical] 72 Pulse Rate 65 Respiratory Rate 27 Blood Pressure [Left Arm] 141/96 Blood Pressure [Right Arm] 125/80 Blood Pressure 163/106 O2 Sat by Pulse Oximetry 88 Intake and Output: Intake & Output 07/29/17 07/30/17 07/31/17 08/01/17 11:59 11:59 11:59 11:59 Intake Total 723 1625 2400 1160 Output Total 947 632 7246 1300 Balance 223 750 200 -140 - Physical Exam Oriented: Normal Eyes: Normal Ear: Normal Nose: Normal Throat: Normal Respiratory: Diminished, Wheezes Cardiovascular: Normal : Other (AKERS) Auscultation: Bowel Sounds: Normal Tenderness: Normal Skin: Normal Musculoskeletal: Back:Thoracic, Back:Lumbar, Tender Psychiatric: Normal Mood Description: Calm Affect: Normal Speech Pattern: Appropriate, Delayed - Laboratory and Diagnostics Result Diagrams: 07/31/17 04:20 07/31/17 04:20 Labs: 07/29/17 02:09 Sputum - Expectorated Sputum Sputum Culture - Final 07/29/17 02:09 Sputum - Expectorated Sputum - Final Laboratory WBC 10.0 X10^3/uL (3.6-10.0) 07/31/17 04:20 RBC 3.75 X10^6/uL (4.7-6.0) L 07/31/17 04:20 Hgb 10.8 g/dL (13.5-18.0) L 07/31/17 04:20 Hct 32.6 % (42.0-54.0) L 07/31/17 04:20 MCV 86.9 fL (80.0-100.0) 07/31/17 04:20 MCH 28.8 pg (27.0-34.0) 07/31/17 04:20 MCHC 33.2 g/dL (33.0-35.0) 07/31/17 04:20 RDW 15.0 % (11.6-16.5) 07/31/17 04:20 Plt Count 164 X10^3/uL (150.0-450.0) 07/31/17 04:20 Plt Count Comment Adequate (ADEQUATE) 07/31/17 04:20 MPV 9.4 fL (7.4-11.0) 07/31/17 04:20 Neut % 92.0 % (42.0-75.0) H 07/31/17 04:20 Lymph % 4.7 % (21.0-51.0) L 07/31/17 04:20 [place] % 3.2 % (0.0-13.0) 07/31/17 04:20 Eos % 0.0 % (0.9-2.9) L 07/31/17 04:20 Baso % 0.1 % (0.2-1.0) L 07/31/17 04:20 Neut # 9.2 x10^3/uL (2.2-4.8) H 07/31/17 04:20 Lymph # 0.5 X10^3/uL (1.3-2.9) L 07/31/17 04:20 [place] # 0.3 x10^3/uL (0.3-0.8) 07/31/17 04:20 Eos # 0.0 x10^3/uL (0.0-0.2) 07/31/17 04:20 Baso # 0.0 X10^3/uL (0.0-0.1) 07/31/17 04:20 Absolute Nucleated RBC 0.0 /100WBC 07/31/17 04:20 Total Counted 100 07/31/17 04:20 Neutrophils % (Manual) 90 % (39-76) H 07/31/17 04:20 Band Neutrophils % 3 % (0-10) 07/30/17 04:00 Lymphocytes % (Manual) 5 % (13-43) L 07/31/17 04:20 Monocytes % (Manual) 5 % (4-9) 07/31/17 04:20 Eosinophils % (Manual) 2 % (0-6) 07/29/17 05:02 Plt Morphology Comment Normal (NORMAL) 07/31/17 04:20 RBC Morphology Normal (NORMAL) 07/31/17 04:20 Sample Site R rad 07/30/17 06:13 ABG pH 7.550 (7.35-7.45) H 07/30/17 06:13 ABG pCO2 48.0 mmHg (35.0-45.0) H 07/30/17 06:13 ABG pO2 51.0 mmHg (80.0-100.0) L 07/30/17 06:13 ABG HCO3 42.0 mmol/L (22-26) H* 07/30/17 06:13 ABG O2 Saturation 90.0 % (90-100) 07/30/17 06:13 ABG Base Excess 17.4 mmol/L (-2.0-2.0) H 07/30/17 06:13 Sam Test Pos 07/30/17 06:13 A-a Gradient 103.0 mmHg 07/30/17 06:13 FiO2 30.000 07/30/17 06:13 Blood Gas Comments [facility], [facility] 07/30/17 06:13 Sodium 138 mmol/L (136-145) 07/31/17 04:20 Corrected Sodium 139 mmol/L (136-145) 07/31/17 04:20 Potassium 3.8 mmol/L (3.5-5.1) 07/31/17 04:20 Chloride 99 mmol/L (98-107) 07/31/17 04:20 Carbon Dioxide 35.4 mmol/L (21-32) H 07/31/17 04:20 BUN 23 mg/dL (7-18) H 07/31/17 04:20 Creatinine 0.94 mg/dL (0.70-1.30) 07/31/17 04:20 Est GFR (MDRD) Af Amer > 60 (>60) 07/31/17 04:20 Est GFR (MDRD) Non-Af > 60 (>60) 07/31/17 04:20 Glucose 123 mg/dL (65-99) H 07/31/17 04:20 Calcium 8.7 mg/dL (8.5-10.1) 07/31/17 04:20 Corrected Calcium 10.1 mg/dL (8.5-10.1) 07/29/17 05:02 Magnesium 1.9 mg/dL (1.7-2.9) 07/29/17 05:02 Total Bilirubin 0.50 mg/dL (0.2-1.0) 07/29/17 05:02 AST 26 Units/L (15-37) 07/29/17 05:02 ALT 13 Units/L (12-78) 07/29/17 05:02 Alkaline Phosphatase 57 Units/L (46-116) 07/29/17 05:02 Creatine Kinase 244 Units/L (39-308) 07/29/17 10:57 CK-MB (CK-2) < 1.0 ng/mL (0-4.0) 07/29/17 10:57 CK/CKMB % Calc 0.4 % (<4) 07/29/17 10:57 Troponin I 0.03 ng/mL (0-1.5) 07/29/17 10:57 Total Protein 6.6 g/dL (6.4-8.2) 07/29/17 05:02 Albumin 2.9 g/dL (3.4-5.0) L 07/29/17 05:02 Globulin 3.7 g/dL (2.5-4.5) 07/29/17 05:02 Albumin/Globulin Ratio 0.8 Ratio (1.1-2.1) L 07/29/17 05:02 Specimen Type Catherized urine 07/28/17 22:00 Urine Color Yellow (YELLOW) 07/28/17 22:00 Urine Appearance Clear (CLEAR) 07/28/17 22:00 Urine pH 6.0 (5.0 - 8.0) 07/28/17 22:00 Ur Specific [place] 1.020 (1.000-1.030) 07/28/17 22:00 Urine Protein 2+ (NEGATIVE) 07/28/17 22:00 Urine Glucose (UA) Negative (NEGATIVE) 07/28/17 22:00 Urine Ketones Negative (NEGATIVE) 07/28/17 22:00 Urine Occult Blood Negative (NEGATIVE) 07/28/17 22:00 Urine Nitrite Negative (NEGATIVE) 07/28/17 22:00 Urine Bilirubin Negative (NEGATIVE) 07/28/17 22:00 Urine Urobilinogen Normal (NORMAL) 07/28/17 22:00 Ur Leukocyte Esterase Negative (NEGATIVE) 07/28/17 22:00 Urine RBC 0-3 /HPF (NEGATIVE) 07/28/17 22:00 Urine WBC 0-3 /HPF (NEGATIVE) 07/28/17 22:00 Ur Squamous Epith Cells Rare /HPF (NEGATIVE) 07/28/17 22:00 Urine Bacteria Negative /HPF (NEGATIVE) 07/28/17 22:00 Ur Culture Indicated? No/not indicated 07/28/17 22:00 - Plan (1) Hypoalbuminemia Status: Acute Plan: INCREASE DIETARY PROTEIN (2) COPD (chronic obstructive pulmonary disease) with acute bronchitis Status: Acute Plan: IV STEROIDS, ANTIBIOTICS, O2,NEBS (3) Respiratory distress Status: Acute Plan: O2,NEBS (4) Degenerative disc disease Status: Chronic Qualifiers: Spinal region: lumbar Qualified Code(s): M51.36 - Other intervertebral disc degeneration, lumbar region Plan: PAIN MED NEEDED (5) Hypertension Status: Chronic Qualifiers: Hypertension type: essential hypertension Qualified Code(s): I10 - Essential (primary) hypertension Plan: MONITOR BP AND ADMINISTER ANTI-HYPERTENSIVES.
[2017-07-31] MEDS ORDERED: NS 500 ML IV 500 ML IV ONE (21:37)
[2017-07-31] MEDS ORDERED: NS 50 ML IV + SPIKE MINIBAG* 50 ML IV ONE (21:39)
[2017-07-31] MEDS: HYTRIN PO SCH (21:44)
[2017-07-31] MEDS: LIPITOR TAB 40 MG PO SCH (21:44)
[2017-07-31] MEDS: FLEXERIL TAB 10 MG PO SCH (21:45)
[2017-07-31] MEDS: ATIVAN TAB 1 MG PO PRN (21:45)
[2017-08-01] MEDS: DUONEB 0.5 MG/3 MG NEB SCH ×6 (00:56→21:23)
[2017-08-01 05:46] LABS: ALANINE AMINOTRANSFERASE 16 Units/L (12-78); ALBUMIN 2.4 g/dL (3.4-5.0); ALKALINE PHOSPHATASE 39 Units/L (46-116); ASPARTATE AMINO TRANSFERASE 17 Units/L (15-37); BLOOD UREA NITROGEN 19 mg/dL (7-18); CALCIUM 8.5 mg/dL (8.5-10.1); CARBON DIOXIDE 36.7 mmol/L (21-32); CHLORIDE 101 mmol/L (98-107); COR CA(FOR HYPOALB) 9.8 mg/dL (8.5-10.1); COR NA(FOR HYPERGLY) 141 mmol/L (136-145); CREATININE 0.86 mg/dL (0.70-1.30); SODIUM 140 mmol/L (136-145); TOTAL PROTEIN 5.4 g/dL (6.4-8.2); eGFR BLACK RACES > 60 (>60); eGFR NON BLACK RACES > 60 (>60)
[2017-08-01] MEDS: SOLU-Medrol 40 MG VIAL IVP SCH (05:54)
[2017-08-01] MEDS: FORTAZ or TAZICEF INJ 1 GM in NS 50 ML IV + SPIKE MINIBAG* 50 ML IV SCH (05:54)
[2017-08-01 06:09] LABS: BASOPHILS % (AUTO) 0.1 % (0.2-1.0); HEMATOCRIT 32.9 % (42.0-54.0); HEMOGLOBIN 10.9 g/dL (13.5-18.0); LYMPHOCYTES # (AUTO) 0.3 X10^3/uL (1.3-2.9); LYMPHOCYTES % (AUTO) 4.4 % (21.0-51.0); MEAN CORPUSCULAR HEMOGLOBIN 28.6 pg (27.0-34.0); MEAN CORPUSCULAR HGB CONC 33.1 g/dL (33.0-35.0); MEAN CORPUSCULAR VOLUME 86.4 fL (80.0-100.0); MEAN PLATELET VOLUME 9.2 fL (7.4-11.0); MONOCYTES # (AUTO) 0.4 x10^3/uL (0.3-0.8); MONOCYTES % (AUTO) 5.4 % (0.0-13.0); NEUTROPHILS # (AUTO) 6.9 x10^3/uL (2.2-4.8); NEUTROPHILS % (AUTO) 90.1 % (42.0-75.0); PLATELET COUNT 171 X10^3/uL (150.0-450.0); RED BLOOD COUNT 3.81 X10^6/uL (4.7-6.0); RED CELL DISTRIBUTION WIDTH 15.2 % (11.6-16.5); WHITE BLOOD COUNT 7.6 X10^3/uL (3.6-10.0)
[2017-08-01 06:35] LABS: PLATELET MORPHOLOGY COMMENT NORMAL (NORMAL)
[2017-08-01] MEDS: ATIVAN TAB 0.5 MG PO SCH (08:28)
[2017-08-01] MEDS: ASPIRIN EC 81 MG PO SCH (08:28)
[2017-08-01] MEDS: ALDACTONE TAB 25 MG PO SCH ×2 (08:28→20:34)
[2017-08-01] MEDS: CIPRO IV 400 MG PREMIX* 400 MG/200 ML IV.SOLN. IV SCH ×2 (08:29→20:33)
[2017-08-01] MEDS: FLONASE NASAL SPRAY ENOSTRIL SCH ×2 (08:29→20:39)
[2017-08-01] MEDS: CELEXA PO SCH (08:29)
[2017-08-01] MEDS: COREG TAB 6.25 MG PO SCH ×2 (08:29→20:36)
[2017-08-01] MEDS: MOTRIN TAB 600 MG PO SCH ×2 (08:29→20:34)
[2017-08-01] MEDS: PLAVIX PO SCH (08:30)
[2017-08-01] MEDS: PriLOSEC PO SCH ×2 (08:37→20:34)
[2017-08-01] MEDS: PREDNISONE TAB 5 MG PO SCH (08:37)
[2017-08-01] MEDS: ZyrTEC TAB 10 MG PO SCH (08:38)
[2017-08-01] MEDS: FORTAZ or TAZICEF INJ 1 GM in NS 50 ML IV 50 ML IV SCH ×2 (14:37→22:32)
[2017-08-01] MEDS: NORCO 10/325 TAB PO PRN ×2 (19:03→23:24)
[2017-08-01] MEDS: HYTRIN PO SCH (20:34)
[2017-08-01] MEDS: FLEXERIL TAB 10 MG PO SCH (20:35)
[2017-08-01] MEDS: LIPITOR TAB 40 MG PO SCH (20:35)
[2017-08-01] MEDS: ATIVAN TAB 1 MG PO PRN (20:35)
[2017-08-01] MEDS: ROBITUSSIN AC PO PRN (20:36)
[2017-08-02] MEDS: DUONEB 0.5 MG/3 MG NEB SCH ×7 (01:08→21:06)
[2017-08-02] MEDS: FORTAZ or TAZICEF INJ 1 GM in NS 50 ML IV 50 ML IV SCH ×3 (05:05→21:05)
[2017-08-02] MEDS: NORCO 10/325 TAB PO PRN ×4 (05:05→23:03)
[2017-08-02 05:19] LABS: ALANINE AMINOTRANSFERASE 12 Units/L (12-78); ALBUMIN 2.3 g/dL (3.4-5.0); ALKALINE PHOSPHATASE 37 Units/L (46-116); ASPARTATE AMINO TRANSFERASE 14 Units/L (15-37); BLOOD UREA NITROGEN 21 mg/dL (7-18); CALCIUM 8.3 mg/dL (8.5-10.1); CARBON DIOXIDE 36.1 mmol/L (21-32); CHLORIDE 101 mmol/L (98-107); COR CA(FOR HYPOALB) 9.7 mg/dL (8.5-10.1); SODIUM 139 mmol/L (136-145); TOTAL PROTEIN 5.2 g/dL (6.4-8.2); eGFR BLACK RACES > 60 (>60); eGFR NON BLACK RACES > 60 (>60)
[2017-08-02 05:55] LABS: ABG BASE EXCESS 11.8 mmol/L (-2.0-2.0)
[2017-08-02 05:56] LABS: ABG HCO3 39.6 mmol/L (22-26)
[2017-08-02 06:08] LABS: BASOPHILS % (AUTO) 0.1 % (0.2-1.0); HEMATOCRIT 33.5 % (42.0-54.0); HEMOGLOBIN 11.1 g/dL (13.5-18.0); LYMPHOCYTES # (AUTO) 0.6 X10^3/uL (1.3-2.9); LYMPHOCYTES % (AUTO) 7.4 % (21.0-51.0); MEAN CORPUSCULAR HEMOGLOBIN 28.6 pg (27.0-34.0); MEAN CORPUSCULAR HGB CONC 33.2 g/dL (33.0-35.0); MEAN CORPUSCULAR VOLUME 86.3 fL (80.0-100.0); MEAN PLATELET VOLUME 9.2 fL (7.4-11.0); MONOCYTES # (AUTO) 0.6 x10^3/uL (0.3-0.8); MONOCYTES % (AUTO) 8.3 % (0.0-13.0); NEUTROPHILS # (AUTO) 6.3 x10^3/uL (2.2-4.8); NEUTROPHILS % (AUTO) 84.2 % (42.0-75.0); PLATELET COUNT 163 X10^3/uL (150.0-450.0); RED BLOOD COUNT 3.88 X10^6/uL (4.7-6.0); RED CELL DISTRIBUTION WIDTH 15.1 % (11.6-16.5); WHITE BLOOD COUNT 7.4 X10^3/uL (3.6-10.0)
[2017-08-02] MEDS: PREDNISONE TAB 5 MG PO SCH (08:16)
[2017-08-02] MEDS: ASPIRIN EC 81 MG PO SCH (08:17)
[2017-08-02] MEDS: ALDACTONE TAB 25 MG PO SCH ×2 (08:17→20:55)
[2017-08-02] MEDS: COREG TAB 6.25 MG PO SCH ×2 (08:17→20:58)
[2017-08-02] MEDS: ATIVAN TAB 0.5 MG PO SCH (08:17)
[2017-08-02] MEDS: CELEXA PO SCH (08:17)
[2017-08-02] MEDS: ZyrTEC TAB 10 MG PO SCH (08:18)
[2017-08-02] MEDS: PriLOSEC PO SCH ×2 (08:18→20:55)
[2017-08-02] MEDS: PLAVIX PO SCH (08:18)
[2017-08-02] MEDS: CIPRO IV 400 MG PREMIX* 400 MG/200 ML IV.SOLN. IV SCH ×2 (08:18→20:53)
[2017-08-02] MEDS: MOTRIN TAB 600 MG PO SCH ×2 (09:55→20:53)
[2017-08-02] MEDS: FLONASE NASAL SPRAY ENOSTRIL SCH ×2 (09:55→21:04)
[2017-08-02] MEDS ORDERED: TYLENOL 325 MG TAB PO PRN (12:55)
[2017-08-02] MEDS ORDERED: MAALOX or MYLANTA PO PRN (12:55)
[2017-08-02] MEDS ORDERED: ATIVAN TAB 1 MG PO PRN (12:55)
[2017-08-02] MEDS ORDERED: TESSALON PERLES PO PRN (12:55)
[2017-08-02] MEDS ORDERED: ROBITUSSIN AC PO PRN (12:55)
[2017-08-02] MEDS: LIPITOR TAB 40 MG PO SCH (20:54)
[2017-08-02] MEDS: HYTRIN PO SCH (20:54)
[2017-08-02] MEDS: FLEXERIL TAB 10 MG PO SCH (20:55)
[2017-08-03] MEDS: DUONEB 0.5 MG/3 MG NEB SCH ×6 (01:42→20:50)
[2017-08-03 05:43] LABS: ALANINE AMINOTRANSFERASE 14 Units/L (12-78); ALBUMIN 2.2 g/dL (3.4-5.0); ALKALINE PHOSPHATASE 39 Units/L (46-116); ASPARTATE AMINO TRANSFERASE 14 Units/L (15-37); BLOOD UREA NITROGEN 22 mg/dL (7-18); CALCIUM 8.1 mg/dL (8.5-10.1); CARBON DIOXIDE 36.4 mmol/L (21-32); CHLORIDE 100 mmol/L (98-107); COR CA(FOR HYPOALB) 9.5 mg/dL (8.5-10.1); CREATININE 0.95 mg/dL (0.70-1.30); SODIUM 136 mmol/L (136-145); eGFR BLACK RACES > 60 (>60); eGFR NON BLACK RACES > 60 (>60)
[2017-08-03 05:50] LABS: BASOPHILS % (AUTO) 0.2 % (0.2-1.0); EOSINOPHILS # (AUTO) 0.2 x10^3/uL (0.0-0.2); EOSINOPHILS % (AUTO) 2.2 % (0.9-2.9); HEMATOCRIT 34.2 % (42.0-54.0); HEMOGLOBIN 11.3 g/dL (13.5-18.0); LYMPHOCYTES # (AUTO) 0.9 X10^3/uL (1.3-2.9); LYMPHOCYTES % (AUTO) 12.4 % (21.0-51.0); MEAN CORPUSCULAR HEMOGLOBIN 28.9 pg (27.0-34.0); MEAN CORPUSCULAR VOLUME 87.5 fL (80.0-100.0); MEAN PLATELET VOLUME 9.2 fL (7.4-11.0); MONOCYTES # (AUTO) 0.9 x10^3/uL (0.3-0.8); MONOCYTES % (AUTO) 11.6 % (0.0-13.0); NEUTROPHILS # (AUTO) 5.6 x10^3/uL (2.2-4.8); NEUTROPHILS % (AUTO) 73.6 % (42.0-75.0); PLATELET COUNT 153 X10^3/uL (150.0-450.0); RED BLOOD COUNT 3.91 X10^6/uL (4.7-6.0); RED CELL DISTRIBUTION WIDTH 15.2 % (11.6-16.5); WHITE BLOOD COUNT 7.6 X10^3/uL (3.6-10.0)
[2017-08-03] MEDS: FORTAZ or TAZICEF INJ 1 GM in NS 50 ML IV 50 ML IV SCH ×3 (06:01→22:42)
[2017-08-03] MEDS: NORCO 10/325 TAB PO PRN ×2 (06:21→12:54)
[2017-08-03] MEDS: CIPRO IV 400 MG PREMIX* 400 MG/200 ML IV.SOLN. IV SCH ×2 (09:52→20:45)
[2017-08-03] MEDS: ALDACTONE TAB 25 MG PO SCH ×2 (09:52→20:46)
[2017-08-03] MEDS: PriLOSEC PO SCH ×2 (09:53→20:45)
[2017-08-03] MEDS: CELEXA PO SCH (09:53)
[2017-08-03] MEDS: ATIVAN TAB 0.5 MG PO SCH (09:53)
[2017-08-03] MEDS: PLAVIX PO SCH (09:53)
[2017-08-03] MEDS: COREG TAB 6.25 MG PO SCH ×2 (09:54→20:45)
[2017-08-03] MEDS: PREDNISONE TAB 5 MG PO SCH (09:54)
[2017-08-03] MEDS: ASPIRIN EC 81 MG PO SCH (09:54)
[2017-08-03] MEDS: MOTRIN TAB 600 MG PO SCH ×2 (09:54→20:46)
[2017-08-03] MEDS: ZyrTEC TAB 10 MG PO SCH (09:55)
[2017-08-03] MEDS: FLONASE NASAL SPRAY ENOSTRIL SCH ×2 (09:55→20:46)
[2017-08-03] MEDS: HYTRIN PO SCH (20:45)
[2017-08-03] MEDS: LIPITOR TAB 40 MG PO SCH (20:45)
[2017-08-03] MEDS: FLEXERIL TAB 10 MG PO SCH (20:46)
[2017-08-04] MEDS: DUONEB 0.5 MG/3 MG NEB SCH ×5 (01:11→16:43)
[2017-08-04] MEDS: FORTAZ or TAZICEF INJ 1 GM in NS 50 ML IV 50 ML IV SCH ×2 (05:54→13:51)
[2017-08-04 06:08] LABS: BASOPHILS % (AUTO) 0.1 % (0.2-1.0); EOSINOPHILS # (AUTO) 0.4 x10^3/uL (0.0-0.2); EOSINOPHILS % (AUTO) 4.2 % (0.9-2.9); HEMOGLOBIN 11.2 g/dL (13.5-18.0); LYMPHOCYTES % (AUTO) 10.9 % (21.0-51.0); MEAN CORPUSCULAR HEMOGLOBIN 28.5 pg (27.0-34.0); MEAN CORPUSCULAR HGB CONC 32.8 g/dL (33.0-35.0); MEAN CORPUSCULAR VOLUME 86.9 fL (80.0-100.0); MEAN PLATELET VOLUME 9.2 fL (7.4-11.0); MONOCYTES # (AUTO) 0.9 x10^3/uL (0.3-0.8); MONOCYTES % (AUTO) 9.6 % (0.0-13.0); NEUTROPHILS # (AUTO) 6.9 x10^3/uL (2.2-4.8); NEUTROPHILS % (AUTO) 75.2 % (42.0-75.0); PLATELET COUNT 157 X10^3/uL (150.0-450.0); RED BLOOD COUNT 3.91 X10^6/uL (4.7-6.0); RED CELL DISTRIBUTION WIDTH 15.3 % (11.6-16.5); WHITE BLOOD COUNT 9.2 X10^3/uL (3.6-10.0)
[2017-08-04 06:16] LABS: ALANINE AMINOTRANSFERASE 14 Units/L (12-78); ALBUMIN 2.2 g/dL (3.4-5.0); ALKALINE PHOSPHATASE 38 Units/L (46-116); ASPARTATE AMINO TRANSFERASE 18 Units/L (15-37); BLOOD UREA NITROGEN 17 mg/dL (7-18); CALCIUM 8.1 mg/dL (8.5-10.1); CARBON DIOXIDE 38.3 mmol/L (21-32); CHLORIDE 103 mmol/L (98-107); COR CA(FOR HYPOALB) 9.5 mg/dL (8.5-10.1); CREATININE 0.79 mg/dL (0.70-1.30); SODIUM 140 mmol/L (136-145); TOTAL PROTEIN 4.9 g/dL (6.4-8.2); eGFR BLACK RACES > 60 (>60); eGFR NON BLACK RACES > 60 (>60)
[2017-08-04] MEDS: CELEXA PO SCH (08:37)
[2017-08-04] MEDS: COREG TAB 6.25 MG PO SCH (08:37)
[2017-08-04] MEDS: ATIVAN TAB 0.5 MG PO SCH (08:38)
[2017-08-04] MEDS: ALDACTONE TAB 25 MG PO SCH (08:38)
[2017-08-04] MEDS: PLAVIX PO SCH (08:38)
[2017-08-04] MEDS: PriLOSEC PO SCH (08:38)
[2017-08-04] MEDS: CIPRO IV 400 MG PREMIX* 400 MG/200 ML IV.SOLN. IV SCH (08:38)
[2017-08-04] MEDS: ZyrTEC TAB 10 MG PO SCH (08:39)
[2017-08-04] MEDS: FLONASE NASAL SPRAY ENOSTRIL SCH (08:40)
[2017-08-04] MEDS: MOTRIN TAB 600 MG PO SCH (08:40)
[2017-08-04] MEDS: PREDNISONE TAB 5 MG PO SCH (08:40)
[2017-08-04] MEDS: ASPIRIN EC 81 MG PO SCH (08:40)
[2017-08-04 13:49] VITALS: BP 95/52
== END 2017-08-04 17:05 | disposition hospice, home (50) | DRG 190 ==
LOC: ER 20:38 → ICU 23:06
PROVIDERS: ADMIT Internal Medicine; ATTEND Internal Medicine
DX: J44.1 Chronic obstructive pulmonary disease with (acute) exacerbation (principal); I50.43 Acute on chronic combined systolic (congestive) and diastolic (congestive) heart failure; J44.0 Chronic obstructive pulmonary disease with (acute) lower respiratory infection; R41.82 Altered mental status, unspecified; R06.02 Shortness of breath; M51.36 Other intervertebral disc degeneration, lumbar region; R06.03 Acute respiratory distress; I10 Essential (primary) hypertension; K21.9 Gastro-esophageal reflux disease without esophagitis; E78.2 Mixed hyperlipidemia; I25.10 Atherosclerotic heart disease of native coronary artery without angina pectoris; M13.89 Other specified arthritis, multiple sites; Z66 Do not resuscitate; J20.8 Acute bronchitis due to other specified organisms; Z51.5 Encounter for palliative care
CPT/HCPCS: 36415; 36600; 51702; 70450; 71010; 80048; 80053; 81001; 82550; 82553; 82803; 83735; 84484; 85025; 87070; 87205; 93005; 93010; 93880; 94640; 94660; 96365; 96374; 96375; 99231; 99284; A4222; A4618; A7030; J0713; J0744; J2920; J2930; J7506; J7620

== ENCOUNTER 2018-02-28 14:58 | Inpatient (IN) | payer OTHER ==
--- NOTE | 2018-02-28 15:10 | DR.URIAD ---
HPI - Time Seen Time seen: 15:10 - PCP Primary Care Physician: JESSICA LOVELACE - Complaint Chief Complaint Doctors Comments: Patient admits to a history of COPD home oxygen use. Denies recent fever, vomting or diarrhea. Admits to SOB for one week. He admits to CHF. Chief Complaint:: EMS OUT TO PT WITH SOB , PT PRESENTS WITH C/O SOB FOR A WEEK AND PT GIVEN DUO NEB PER EMS , PT HAS O2 ON 2 LPM AND PT HAS EXP WHEEZES, AND RHONHI NOTED PT HAS NO DISTRESS NOTED ,,BR - Source History Provided: Patient, EMS - Mode of Arrival Mode of Arrival: EMS - Timing Onset of Chief Complaint: 02/21/18 PMH - PMH Past Medical History: Yes Past Medical History: Anemia, Angina, Anxiety, Arthritis, CHF, COPD, Coronary Artery Disease, Depression, Dyslipidemia, GERD, Hypertension, [place] Past Surgical History: Yes Surgical History: Ortho Surgery, Tonsillectomy - Family History History of Family Medical Conditions: Yes Family Medical History: Cancer, Heart Failure, Hypertension - Social History Does patient currently use any type of tobacco product: No Have you used tobacco products in the last 12 months: No Type of Tobacco Use: None Does any household member use tobacco: No Alcohol Use: None Do you use any recreational Drugs:: No Lives With: Family Lives Where: Home - infectious screening In the last 2 months have you had wt loss of >10#?: NO Have you had fever, night sweats or hemotysis?: No Have you traveled outside the country in the last 6 months?: No ROS - Review of Systems Constitutional: No Symptoms Reported Eyes: No Symptoms Reported ENTM: No Symptoms Reported Respiratoy: No Symptoms Reported Cardiovascular: No Symptoms Reported Gastrointestinal/Abdominal: No Symptoms Reported Genitourinary: No Symptoms Reported Neurological: No Symptoms Reported Musculoskeletal: No Symptoms Reported Integumentary: No Symptoms Reported Hematologic/Lymphatic: No Symptoms Reported Endocrine: No Symptoms Reported Psychiatric: No Symptoms Reported All Other Systems: Reviewed and Negative PE - Vital Signs Vitals: Temperature 96.2 F Pulse Rate 63 Respiratory Rate 18 Blood Pressure [Left Arm] 95/52 Blood Pressure [Right Arm] 125/80 Blood Pressure 131/64 O2 Sat by Pulse Oximetry 93 - General Limitations: No Limitations General Appearance: Alert, In No Apparent Distress - Head Head Exam: Normal Inspection, Atraumatic - Eyes Eye exam: Normal Appearance, PERRL, EOMI - ENT ENT Exam: Normal Exam External Ear Exam: Normal External Inspection TM/Canal Exam: Bilateral Normal Nose Exam: Normal Nose Exam Nasal Speculum Exam: Bilateral Normal Mouth Exam: Normal Inspection Throat Exam: Normal Inspection - Neck Neck Exam: Normal Inspection, Full ROM - Chest Chest Inspection: Normal Inspection - Respiratory Respiratory Exam: Normal Lung Sounds Bilat Respiratory Exam: Bilateral Clear to Auscultation - Cardiovascular Cardiovascular Exam: Regular Rate, Normal Rhythm - Abdominal Exam Abdominal Exam: Normal Inspection, Normal Bowel Sounds Abdominal Tenderness: negative: RUQ, RLQ, LUQ, LLQ, Epigastrium, Suprapubic, Diffuse, Mild, Moderate, Severe, Other - Extremeties Extremities Exam: Normal Inspection, Full ROM - Back Back Exam: Normal Inspection, Full ROM - Neurologic Neurological Exam: Alert, Oriented X3, CN II-XII Intact - Psychiatric Psychiatric Exam: Normal Affect, Normal Mood - Skin Skin Exam: Warm, Dry, Intact Course - Reevaluation 1st: Improved ROR - Labs Reviewed Result Diagrams: 02/28/18 15:24 02/28/18 15:24 Laboratory: WBC 13.6 X10^3/uL (3.6-10.0) H 02/28/18 15:24 RBC 4.04 X10^6/uL (4.7-6.0) L 02/28/18 15:24 Hgb 12.1 g/dL (13.5-18.0) L 02/28/18 15:24 Hct 35.2 % (42.0-54.0) L 02/28/18 15:24 MCV 87.2 fL (80.0-100.0) 02/28/18 15:24 MCH 29.9 pg (27.0-34.0) 02/28/18 15:24 MCHC 34.2 g/dL (33.0-35.0) 02/28/18 15:24 RDW 15.2 % (11.6-16.5) 02/28/18 15:24 Plt Count 250 X10^3/uL (150.0-450.0) 02/28/18 15:24 MPV 8.7 fL (7.4-11.0) 02/28/18 15:24 Neut % (Auto) 82.5 % (42.0-75.0) H 02/28/18 15:24 Lymph % (Auto) 7.0 % (21.0-51.0) L 02/28/18 15:24 [place] % (Auto) 7.9 % (0.0-13.0) 02/28/18 15:24 Eos % (Auto) 2.3 % (0.9-2.9) 02/28/18 15:24 Baso % (Auto) 0.3 % (0.2-1.0) 02/28/18 15:24 Neut # (Auto) 11.2 x10^3/uL (2.2-4.8) H 02/28/18 15:24 Lymph # (Auto) 1.0 X10^3/uL (1.3-2.9) L 02/28/18 15:24 [place] # (Auto) 1.1 x10^3/uL (0.3-0.8) H 02/28/18 15:24 Eos # (Auto) 0.3 x10^3/uL (0.0-0.2) H 02/28/18 15:24 Baso # (Auto) 0.0 X10^3/uL (0.0-0.1) 02/28/18 15:24 Absolute Nucleated RBC 0.0 /100WBC 02/28/18 15:24 D-Dimer 550 ng/mL (0-400) H* 02/28/18 15:24 Sodium 135 mmol/L (136-145) L 02/28/18 15:24 Corrected Sodium 136 mmol/L (136-145) 02/28/18 15:24 Potassium 5.0 mmol/L (3.5-5.1) 02/28/18 15:24 Chloride 95 mmol/L (98-107) L 02/28/18 15:24 Carbon Dioxide 38.0 mmol/L (21-32) H 02/28/18 15:24 BUN 46 mg/dL (7-18) H 02/28/18 15:24 Creatinine 1.67 mg/dL (0.70-1.30) H 02/28/18 15:24 Est GFR (MDRD) Af Amer 52 (>60) L 02/28/18 15:24 Est GFR (MDRD) Non-Af 43 (>60) L 02/28/18 15:24 Glucose 131 mg/dL (65-99) H 02/28/18 15:24 Calcium 8.6 mg/dL (8.5-10.1) 02/28/18 15:24 Corrected Calcium 9.2 mg/dL (8.5-10.1) 02/28/18 15:24 Total Bilirubin 0.20 mg/dL (0.2-1.0) 02/28/18 15:24 AST 14 Units/L (15-37) L 02/28/18 15:24 ALT 20 Units/L (12-78) 02/28/18 15:24 Alkaline Phosphatase 54 Units/L (46-116) 02/28/18 15:24 B-Natriuretic Peptide 26.8 pg/mL (0-79) 02/28/18 15:24 Total Protein 7.5 g/dL (6.4-8.2) 02/28/18 15:24 Albumin 3.3 g/dL (3.4-5.0) L 02/28/18 15:24 Globulin 4.2 g/dL (2.5-4.5) 02/28/18 15:24 Albumin/Globulin Ratio 0.8 Ratio (1.1-2.1) L 02/28/18 15:24 - XRAY XRAY Interpreted by: Radiologist (Chest: No acute cardiopulmonary disease is appreciated as noted above.) - Discharge Plan Condition: Stable - Follow ups/Referrals Follow ups/Referrals: EDNA LOPEZ [Primary Care Provider] - 3 days - Instructions
[2018-02-28 15:13] VITALS: BMI 23.5
[2018-02-28] MEDS ORDERED: SOLU-Medrol 125 MG VIAL IVP ONE (15:15)
[2018-02-28] MEDS ORDERED: DUONEB 0.5 MG/3 MG NEB ONE ×2 (15:15→17:15)
[2018-02-28 15:34] LABS: BASOPHILS % (AUTO) 0.3 % (0.2-1.0); EOSINOPHILS # (AUTO) 0.3 x10^3/uL (0.0-0.2); EOSINOPHILS % (AUTO) 2.3 % (0.9-2.9); HEMATOCRIT 35.2 % (42.0-54.0); HEMOGLOBIN 12.1 g/dL (13.5-18.0); MEAN CORPUSCULAR HEMOGLOBIN 29.9 pg (27.0-34.0); MEAN CORPUSCULAR HGB CONC 34.2 g/dL (33.0-35.0); MEAN CORPUSCULAR VOLUME 87.2 fL (80.0-100.0); MEAN PLATELET VOLUME 8.7 fL (7.4-11.0); MONOCYTES # (AUTO) 1.1 x10^3/uL (0.3-0.8); MONOCYTES % (AUTO) 7.9 % (0.0-13.0); NEUTROPHILS # (AUTO) 11.2 x10^3/uL (2.2-4.8); NEUTROPHILS % (AUTO) 82.5 % (42.0-75.0); PLATELET COUNT 250 X10^3/uL (150.0-450.0); RED BLOOD COUNT 4.04 X10^6/uL (4.7-6.0); RED CELL DISTRIBUTION WIDTH 15.2 % (11.6-16.5); WHITE BLOOD COUNT 13.6 X10^3/uL (3.6-10.0)
[2018-02-28 15:55] LABS: B-TYPE NATRIURETIC PEPTIDE 26.8 pg/mL (0-79)
--- NOTE | 2018-02-28 15:55 | RAD ---
HISTORY: Shortness of breath Study: Single-view of the chest Comparison: August 01, 2017 Findings: The trachea is midline. The cardiac silhouette is unremarkable. Subsegmental atelectasis and/or sca rring are again noted within the right upper lobe and left lower lobe. The left costophrenic angle is not entirely included. Otherwise the remaining lungs are clear without focal infiltrate or effusion. IMPRESSION: 1. No acute cardiopulmonary disease is appreciated as noted above. Reported By:
[2018-02-28 16:10] LABS: ALBUMIN 3.3 g/dL (3.4-5.0); CALCIUM 8.6 mg/dL (8.5-10.1); COR CA(FOR HYPOALB) 9.2 mg/dL (8.5-10.1); CREATININE 1.67 mg/dL (0.70-1.30); TOTAL PROTEIN 7.5 g/dL (6.4-8.2)
[2018-02-28] MEDS ORDERED: SOLU-Medrol 125 MG VIAL ONE (16:11)
[2018-02-28] MEDS ORDERED: PULMICORT NEB TX 0.5 MG NEB SCH (21:00)
[2018-02-28] MEDS ORDERED: DUONEB 0.5 MG/3 MG NEB SCH (21:00)
[2018-02-28] MEDS: DUONEB 0.5 MG/3 MG NEB SCH (21:59)
[2018-02-28] MEDS: PULMICORT NEB TX 0.5 MG NEB SCH (21:59)
[2018-03-01] MEDS: DUONEB 0.5 MG/3 MG NEB SCH ×6 (01:04→21:57)
[2018-03-01 06:12] LABS: BASOPHILS # (AUTO) 0.1 X10^3/uL (0.0-0.1); BASOPHILS % (AUTO) 0.6 % (0.2-1.0); HEMATOCRIT 35.9 % (42.0-54.0); HEMOGLOBIN 12.2 g/dL (13.5-18.0); LYMPHOCYTES # (AUTO) 0.9 X10^3/uL (1.3-2.9); LYMPHOCYTES % (AUTO) 7.7 % (21.0-51.0); MEAN CORPUSCULAR HEMOGLOBIN 29.6 pg (27.0-34.0); MEAN CORPUSCULAR VOLUME 86.9 fL (80.0-100.0); MEAN PLATELET VOLUME 8.7 fL (7.4-11.0); MONOCYTES # (AUTO) 0.2 x10^3/uL (0.3-0.8); MONOCYTES % (AUTO) 2.1 % (0.0-13.0); NEUTROPHILS # (AUTO) 10.8 x10^3/uL (2.2-4.8); NEUTROPHILS % (AUTO) 89.6 % (42.0-75.0); PLATELET COUNT 260 X10^3/uL (150.0-450.0); RED BLOOD COUNT 4.13 X10^6/uL (4.7-6.0); RED CELL DISTRIBUTION WIDTH 15.3 % (11.6-16.5); WHITE BLOOD COUNT 12.1 X10^3/uL (3.6-10.0)
[2018-03-01 06:18] LABS: ALBUMIN 3.3 g/dL (3.4-5.0); CARBON DIOXIDE 37.4 mmol/L (21-32); COR CA(FOR HYPOALB) 9.6 mg/dL (8.5-10.1); CREATININE 1.59 mg/dL (0.70-1.30); TOTAL PROTEIN 7.3 g/dL (6.4-8.2)
[2018-03-01] MEDS: PULMICORT NEB TX 0.5 MG NEB SCH ×2 (08:55→21:57)
[2018-03-01] MEDS ORDERED: PEPCID TAB 20 MG PO PRN (10:28)
--- NOTE | 2018-03-01 11:10 | CT ---
CT brain without contrast Indication: symptoms concerning for CVA Comparison: 07/28/2017 Technique: Multiple axial images of the brain were obtained from the skull base to the vertex without administra tion of IV contrast. Findings: There is mild generalized cerebral atrophy. Bilateral periventricular deep white matter hypoattenuati on is unchanged from prior examination. Suspected lacunar infarct within the left both chevy also unch anged from prior examination. No acute intraparenchymal hemorrhage or mass can be identified. No extra-axial fluid collections are seen. No alteration in the attenuation of the brain parenchyma can be identified to suggest acute o r subacute ischemic change. The ventricular system is symmetric and nondilated. The extracranial st ructures are grossly unremarkable. IMPRESSION: 1. No acute intracranial hemorrhage. 2. Bilateral periventricular and deep white matter hypoattenuation appears similar prior examination likely representing sequela of chronic microvascular ischemic disease. Suspect remote lacunar infarct within the left globus pallidum unchanged from prior exam. Reported By:
[2018-03-01] MEDS: NORCO 10/325 TAB PO PRN ×2 (11:31→20:48)
--- NOTE | 2018-03-01 17:37 | DR.H&P ---
H&P - History & Physical for Day of: H&P Date: 02/28/18 - Chief Complaint Chief Complaint: resp distress - Allergies Allergies/Adverse Reactions: Allergies Allergy/AdvReac Type Severity Reaction Status Date / Time penicillin G AdvReac Verified 02/28/18 15:00 - History of Present Illness History of Present Illness: 77 [facility] ER ADMISSION AFTER PRESENTING WITH EMS WITH CO PT WITH SOB , PT PRESENTS WITH C/O SOB FOR A WEEK AND PT GIVEN DUO NEB PER EMS , PT HAS O2 ON 2 LPM AND PT HAS EXP WHEEZES, AND RHONHI NOTED PT HAS NO DISTRESS NOTED . PT IS CURRENTLY UNDER HOSPICE CARE FOR END STAGE COPD, RESP FAILURE. WBC ELEVATED ON ADMISSION, CXR AND EKG ON ADMISSION, ADMIT FOR TREATMENT AND EVALUATION OF COPD EXACERBATION, RESP DISTRESS - Past Medical History Past Medical History: Anemia, Angina, Anxiety, Arthritis, CHF, COPD, Coronary Artery Disease, Depression, Dyslipidemia, GERD, Hypertension, [place] Additional Medical History: Hx BPH, Degenerative Disc Disease, Hx Skin Cancer - Past Surgical History Surgical History: Tonsillectomy, Other Additional Surgical History: 2 Inguinal Hernia Repairs, 1 Umbilical Hernia Repair - Family History Family Medical History: Cancer, Heart Failure, Hypertension - Social History Does patient currently use any type of tobacco product: No Have you used tobacco products in the last 12 months: No Type of Tobacco Use: None Does any household member use tobacco: No Alcohol Use: None Drug Use: None - Review of Systems Constitutional: Weakness Eyes: No Symptoms Reported ENT: No Symptoms Reported Respiratory: Cough, Shortness of Breath, SOB with Excertion, Wheezing Cardiovascular: Palpitations. denies: Edema Gastrointestinal: No Symptoms Reported Genitourinary: No Symptoms Reported Musculoskeletal: Back Pain, Leg Pain Skin: No Symptoms Reported Neurological: Weakness - Physical Exam Vital Signs: Temperature 98 F Pulse Rate [Left] 66 Pulse Rate 70 Respiratory Rate 15 Blood Pressure [Left Arm] 135/66 Blood Pressure [Right Arm] 125/80 Blood Pressure 131/64 O2 Sat by Pulse Oximetry 98 Oriented: Person Eyes: Normal Ear: Normal Nose: Normal Throat: Normal Respiratory: Diminished Throughout Cardiovascular: negative: Edema : Normal Auscultation: Bowel Sounds: Normal Palpation: Normal Tenderness: Normal Skin: Decreased Turgur Musculoskeletal: Right, Left, Leg, Back:Thoracic, Back:Lumbar, Motor Deficit, Sensory Deficit, Instability Psychiatric: Depression Mood Description: Depressed Affect: Anxious, Depressed Speech Pattern: Appropriate - Assessment/Plan (1) COPD (chronic obstructive pulmonary disease) with acute bronchitis Status: Acute Plan: PT ADMITTED, ABG ON ADMISSION, SUPPLEMENTAL O2, IV SOLU MEDROL. RESP THERAPY. VERIFY AND RESUME HOME MEDS. ADMISSION LABS, UA (2) Respiratory distress Status: Acute (3) CHF (congestive heart failure) Qualifiers: Qualified Code(s): I50.43 - Acute on chronic combined systolic (congestive) and diastolic (congestive) heart failure Status: Chronic (4) COPD (chronic obstructive pulmonary disease) Status: Chronic (5) Degenerative disc disease Qualifiers: Spinal region: lumbar Qualified Code(s): M51.36 - Other intervertebral disc degeneration, lumbar region Status: Chronic (6) GERD (gastroesophageal reflux disease) Status: Chronic (7) History of BPH Status: Chronic (8) History of [place] (myocardial infarction) Status: Chronic (9) History of emphysema Status: Chronic
[2018-03-02] MEDS: DUONEB 0.5 MG/3 MG NEB SCH ×6 (00:57→21:00)
[2018-03-02 06:07] LABS: BASOPHILS # (AUTO) 0.1 X10^3/uL (0.0-0.1); BASOPHILS % (AUTO) 0.5 % (0.2-1.0); EOSINOPHILS # (AUTO) 0.2 x10^3/uL (0.0-0.2); EOSINOPHILS % (AUTO) 1.5 % (0.9-2.9); HEMATOCRIT 33.3 % (42.0-54.0); HEMOGLOBIN 11.3 g/dL (13.5-18.0); LYMPHOCYTES # (AUTO) 1.8 X10^3/uL (1.3-2.9); LYMPHOCYTES % (AUTO) 15.7 % (21.0-51.0); MEAN CORPUSCULAR HEMOGLOBIN 29.4 pg (27.0-34.0); MEAN CORPUSCULAR HGB CONC 33.9 g/dL (33.0-35.0); MEAN CORPUSCULAR VOLUME 86.6 fL (80.0-100.0); MEAN PLATELET VOLUME 8.5 fL (7.4-11.0); MONOCYTES # (AUTO) 1.1 x10^3/uL (0.3-0.8); MONOCYTES % (AUTO) 9.8 % (0.0-13.0); NEUTROPHILS # (AUTO) 8.4 x10^3/uL (2.2-4.8); NEUTROPHILS % (AUTO) 72.5 % (42.0-75.0); PLATELET COUNT 215 X10^3/uL (150.0-450.0); RED BLOOD COUNT 3.84 X10^6/uL (4.7-6.0); RED CELL DISTRIBUTION WIDTH 15.1 % (11.6-16.5); WHITE BLOOD COUNT 11.6 X10^3/uL (3.6-10.0)
[2018-03-02 06:25] LABS: ALANINE AMINOTRANSFERASE 18 Units/L (12-78); ALKALINE PHOSPHATASE 44 Units/L (46-116); ASPARTATE AMINO TRANSFERASE 12 Units/L (15-37); BLOOD UREA NITROGEN 43 mg/dL (7-18); CALCIUM 8.1 mg/dL (8.5-10.1); CARBON DIOXIDE 36.9 mmol/L (21-32); CHLORIDE 95 mmol/L (98-107); COR CA(FOR HYPOALB) 8.9 mg/dL (8.5-10.1); CREATININE 1.22 mg/dL (0.70-1.30); SODIUM 134 mmol/L (136-145); TOTAL PROTEIN 6.4 g/dL (6.4-8.2); eGFR BLACK RACES > 60 (>60); eGFR NON BLACK RACES > 60 (>60)
[2018-03-02] MEDS: NORCO 10/325 TAB PO PRN ×2 (07:20→16:21)
[2018-03-02] MEDS: PULMICORT NEB TX 0.5 MG NEB SCH ×2 (09:21→21:00)
[2018-03-02] MEDS ORDERED: TUSSIONEX PENNKINETIC SUSP PO PRN (18:24)
--- NOTE | 2018-03-02 18:27 | PCM.PROG ---
Progress Note - Progress Note for Day of Date: 03/02/18 - Subjective Subjective: 77 WM ER ADMISSION WITH RESP DISTRESS. PT HAS BEEN ON SUPPLEMENTAL O2 AND RESP THERAPY. PT CONTIUES WITH DIFFUSE RHONCHI AND DIMINISHED LUNG SOUNDS , PT IN MODERATE RESP DISTRESS. PT PREVIOUSLY ON HOSPICE FOR RESP FAILURE. PT CONTINUES TO CO COUGH AND GENERALIZED WEAKNESS - Past Medical Family Social History Past Med/Fam/Surg Hx: No changes since H&P Allergies: Allergies penicillin G Adverse Reaction (Verified 02/28/18 15:00) - Review of Systems ROS: No change since H&P - Vital Signs and I&O's Vital Signs: Temperature 97.2 F Pulse Rate [Left] 78 Pulse Rate 66 Respiratory Rate 18 Blood Pressure [Left Arm] 124/59 Blood Pressure [Right Arm] 128/63 Blood Pressure 131/64 O2 Sat by Pulse Oximetry 94 Intake and Output: Intake & Output 02/28/18 03/01/18 03/02/18 03/03/18 11:59 11:59 11:59 11:59 Intake Total 85 1120 550 Output Total 700 1500 900 Balance -615 380 350 - Physical Exam Oriented: Person Eyes: Normal Ear: Normal Nose: Normal Throat: Normal Respiratory: Diminished, Rhonchi Cardiovascular: negative: Edema : Normal Auscultation: Bowel Sounds: Normal Tenderness: Normal Skin: Decreased Turgur Musculoskeletal: Right, Left, Leg, Back:Thoracic, Back:Lumbar, Motor Deficit, Sensory Deficit, Instability Psychiatric: Depression Mood Description: Depressed Affect: Anxious, Depressed Speech Pattern: Clear, Appropriate - Laboratory and Diagnostics Result Diagrams: 03/02/18 05:54 03/02/18 05:54 Labs: Laboratory WBC 11.6 X10^3/uL (3.6-10.0) H 03/02/18 05:54 RBC 3.84 X10^6/uL (4.7-6.0) L 03/02/18 05:54 Hgb 11.3 g/dL (13.5-18.0) L 03/02/18 05:54 Hct 33.3 % (42.0-54.0) L 03/02/18 05:54 MCV 86.6 fL (80.0-100.0) 03/02/18 05:54 MCH 29.4 pg (27.0-34.0) 03/02/18 05:54 MCHC 33.9 g/dL (33.0-35.0) 03/02/18 05:54 RDW 15.1 % (11.6-16.5) 03/02/18 05:54 Plt Count 215 X10^3/uL (150.0-450.0) 03/02/18 05:54 MPV 8.5 fL (7.4-11.0) 03/02/18 05:54 Neut % (Auto) 72.5 % (42.0-75.0) 03/02/18 05:54 Lymph % (Auto) 15.7 % (21.0-51.0) L 03/02/18 05:54 [place] % (Auto) 9.8 % (0.0-13.0) 03/02/18 05:54 Eos % (Auto) 1.5 % (0.9-2.9) 03/02/18 05:54 Baso % (Auto) 0.5 % (0.2-1.0) 03/02/18 05:54 Neut # (Auto) 8.4 x10^3/uL (2.2-4.8) H 03/02/18 05:54 Lymph # (Auto) 1.8 X10^3/uL (1.3-2.9) 03/02/18 05:54 [place] # (Auto) 1.1 x10^3/uL (0.3-0.8) H 03/02/18 05:54 Eos # (Auto) 0.2 x10^3/uL (0.0-0.2) 03/02/18 05:54 Baso # (Auto) 0.1 X10^3/uL (0.0-0.1) 03/02/18 05:54 Absolute Nucleated RBC 0.0 /100WBC 03/02/18 05:54 D-Dimer 550 ng/mL (0-400) H* 02/28/18 15:24 Sodium 134 mmol/L (136-145) L 03/02/18 05:54 Corrected Sodium TNP 03/02/18 05:54 Potassium 3.9 mmol/L (3.5-5.1) 03/02/18 05:54 Chloride 95 mmol/L (98-107) L 03/02/18 05:54 Carbon Dioxide 36.9 mmol/L (21-32) H 03/02/18 05:54 BUN 43 mg/dL (7-18) H 03/02/18 05:54 Creatinine 1.22 mg/dL (0.70-1.30) 03/02/18 05:54 Est GFR (MDRD) Af Amer > 60 (>60) 03/02/18 05:54 Est GFR (MDRD) Non-Af > 60 (>60) 03/02/18 05:54 Glucose 83 mg/dL (65-99) 03/02/18 05:54 Calcium 8.1 mg/dL (8.5-10.1) L 03/02/18 05:54 Corrected Calcium 8.9 mg/dL (8.5-10.1) 03/02/18 05:54 Total Bilirubin 0.20 mg/dL (0.2-1.0) 03/02/18 05:54 AST 12 Units/L (15-37) L 03/02/18 05:54 ALT 18 Units/L (12-78) 03/02/18 05:54 Alkaline Phosphatase 44 Units/L (46-116) L 03/02/18 05:54 B-Natriuretic Peptide 26.8 pg/mL (0-79) 02/28/18 15:24 Total Protein 6.4 g/dL (6.4-8.2) 03/02/18 05:54 Albumin 3.0 g/dL (3.4-5.0) L 03/02/18 05:54 Globulin 3.4 g/dL (2.5-4.5) 03/02/18 05:54 Albumin/Globulin Ratio 0.9 Ratio (1.1-2.1) L 03/02/18 05:54 - Plan (1) COPD (chronic obstructive pulmonary disease) with acute bronchitis Status: Acute Plan: ABG ON ADMISSION, SUPPLEMENTAL O2, IV SOLU MEDROL. RESP THERAPY. RESUME HOME MEDS. AMLABS, UA ON ADMISSION (2) Respiratory distress Status: Acute Plan: RESP CARE, SUPPLEMENTAL O2. JET NEBS, ADMISSION ABG (3) CHF (congestive heart failure) Status: Chronic Qualifiers: Qualified Code(s): I50.43 - Acute on chronic combined systolic (congestive) and diastolic (congestive) heart failure (4) COPD (chronic obstructive pulmonary disease) Status: Chronic (5) Degenerative disc disease Status: Chronic Qualifiers: Spinal region: lumbar Qualified Code(s): M51.36 - Other intervertebral disc degeneration, lumbar region (6) GERD (gastroesophageal reflux disease) Status: Chronic (7) History of BPH Status: Chronic (8) History of [place] (myocardial infarction) Status: Chronic (9) History of emphysema Status: Chronic
[2018-03-02] MEDS: MUCOMYST 20% 200 MG/ML NEB SCH ×2 (18:48→21:00)
[2018-03-02] MEDS ORDERED: LASIX IVP SCH (19:00)
[2018-03-02] MEDS ORDERED: NS 250 ML IV 250 ML IV ONE (20:24)
[2018-03-02] MEDS: LEVAQUIN PREMIX IV 500 MG 500 MG/100 ML BAG IV SCH (20:34)
[2018-03-02] MEDS: PROTONIX INJ 40 MG VIAL IVP SCH (20:34)
[2018-03-02] MEDS: LASIX IVP SCH (20:35)
[2018-03-03] MEDS: DUONEB 0.5 MG/3 MG NEB SCH ×6 (00:28→20:23)
[2018-03-03 06:41] LABS: BASOPHILS # (AUTO) 0.1 X10^3/uL (0.0-0.1); BASOPHILS % (AUTO) 0.5 % (0.2-1.0); EOSINOPHILS # (AUTO) 0.4 x10^3/uL (0.0-0.2); EOSINOPHILS % (AUTO) 2.7 % (0.9-2.9); HEMATOCRIT 34.9 % (42.0-54.0); LYMPHOCYTES # (AUTO) 1.5 X10^3/uL (1.3-2.9); LYMPHOCYTES % (AUTO) 10.6 % (21.0-51.0); MEAN CORPUSCULAR HEMOGLOBIN 29.5 pg (27.0-34.0); MEAN CORPUSCULAR HGB CONC 34.3 g/dL (33.0-35.0); MEAN CORPUSCULAR VOLUME 86.1 fL (80.0-100.0); MEAN PLATELET VOLUME 9.1 fL (7.4-11.0); MONOCYTES # (AUTO) 1.6 x10^3/uL (0.3-0.8); MONOCYTES % (AUTO) 10.9 % (0.0-13.0); NEUTROPHILS % (AUTO) 75.3 % (42.0-75.0); PLATELET COUNT 249 X10^3/uL (150.0-450.0); RED BLOOD COUNT 4.05 X10^6/uL (4.7-6.0); RED CELL DISTRIBUTION WIDTH 15.5 % (11.6-16.5); WHITE BLOOD COUNT 14.6 X10^3/uL (3.6-10.0)
[2018-03-03 06:57] LABS: ALANINE AMINOTRANSFERASE 23 Units/L (12-78); ALKALINE PHOSPHATASE 47 Units/L (46-116); ASPARTATE AMINO TRANSFERASE 17 Units/L (15-37); BLOOD UREA NITROGEN 28 mg/dL (7-18); CALCIUM 8.1 mg/dL (8.5-10.1); CARBON DIOXIDE 33.6 mmol/L (21-32); CHLORIDE 94 mmol/L (98-107); COR CA(FOR HYPOALB) 8.9 mg/dL (8.5-10.1); CREATININE 1.02 mg/dL (0.70-1.30); SODIUM 132 mmol/L (136-145); TOTAL PROTEIN 6.6 g/dL (6.4-8.2); eGFR BLACK RACES > 60 (>60); eGFR NON BLACK RACES > 60 (>60)
--- NOTE | 2018-03-03 07:09 | RAD ---
Examination: AP chest History: COPD, respiratory failure Comparison reference 02/28/2018 Findings: Stable normal heart size. No interval change, developing infiltrate or pneumothorax. Minima l interstitial findings again noted right upper lobe and left base consistent with chronic scarring. The hilar structures are symmetric. Impression: No interval change demonstrated since 3 days prior. Reported By:
[2018-03-03] MEDS: LEVAQUIN PREMIX IV 500 MG 500 MG/100 ML BAG IV SCH (08:32)
[2018-03-03] MEDS: LASIX IVP SCH (08:32)
[2018-03-03] MEDS: PROTONIX INJ 40 MG VIAL IVP SCH (08:33)
[2018-03-03] MEDS: NORCO 10/325 TAB PO PRN (08:33)
[2018-03-03] MEDS: MUCOMYST 20% 200 MG/ML NEB SCH ×4 (09:55→20:23)
[2018-03-03] MEDS: PULMICORT NEB TX 0.5 MG NEB SCH ×2 (09:55→20:23)
[2018-03-03] MEDS ORDERED: ZOFRAN INJ 4 MG VIAL IVP ONE (12:46)
--- NOTE | 2018-03-03 14:00 | PCM.PROG ---
Progress Note - Progress Note for Day of Date: 03/03/18 - Subjective Subjective: 77 WM ER ADMISSION WITH RESP DISTRESS. PT HAS BEEN ON SUPPLEMENTAL O2 AND RESP THERAPY. PT CONTIUES WITH DIFFUSE RHONCHI AND DIMINISHED LUNG SOUNDS , PT IN MODERATE RESP DISTRESS. PT PREVIOUSLY ON HOSPICE FOR RESP FAILURE. PT CONTINUES TO CO COUGH AND GENERALIZED WEAKNESS, POOR APPETITE. PT STATES "I'M JUST TIRED" - Past Medical Family Social History Past Med/Fam/Surg Hx: No changes since H&P Allergies: Allergies penicillin G Adverse Reaction (Verified 02/28/18 15:00) - Review of Systems ROS: No change since H&P - Vital Signs and I&O's Vital Signs: Temperature 97.8 F Pulse Rate [Left] 57 Pulse Rate 68 Respiratory Rate 22 Blood Pressure [Left Arm] 118/59 Blood Pressure [Right Arm] 128/63 Blood Pressure 131/64 O2 Sat by Pulse Oximetry 93 Intake and Output: Intake & Output 03/01/18 03/02/18 03/03/18 03/04/18 11:59 11:59 11:59 11:59 Intake Total 85 1120 1600 Output Total 700 1500 2600 Balance -615 -461 -1000 - Physical Exam Oriented: Person Eyes: Normal Ear: Normal Nose: Normal Throat: Normal Respiratory: Diminished, Rhonchi Cardiovascular: negative: Edema : Normal Auscultation: Bowel Sounds: Normal Tenderness: Normal Skin: Decreased Turgur Musculoskeletal: Right, Left, Leg, Back:Thoracic, Back:Lumbar, Motor Deficit, Sensory Deficit, Instability Psychiatric: Depression Mood Description: Depressed Affect: Anxious, Depressed Speech Pattern: Clear, Appropriate - Laboratory and Diagnostics Result Diagrams: 03/03/18 06:07 03/03/18 06:07 Labs: Laboratory WBC 14.6 X10^3/uL (3.6-10.0) H 03/03/18 06:07 RBC 4.05 X10^6/uL (4.7-6.0) L 03/03/18 06:07 Hgb 12.0 g/dL (13.5-18.0) L 03/03/18 06:07 Hct 34.9 % (42.0-54.0) L 03/03/18 06:07 MCV 86.1 fL (80.0-100.0) 03/03/18 06:07 MCH 29.5 pg (27.0-34.0) 03/03/18 06:07 MCHC 34.3 g/dL (33.0-35.0) 03/03/18 06:07 RDW 15.5 % (11.6-16.5) 03/03/18 06:07 Plt Count 249 X10^3/uL (150.0-450.0) 03/03/18 06:07 MPV 9.1 fL (7.4-11.0) 03/03/18 06:07 Neut % (Auto) 75.3 % (42.0-75.0) H 03/03/18 06:07 Lymph % (Auto) 10.6 % (21.0-51.0) L 03/03/18 06:07 [place] % (Auto) 10.9 % (0.0-13.0) 03/03/18 06:07 Eos % (Auto) 2.7 % (0.9-2.9) 03/03/18 06:07 Baso % (Auto) 0.5 % (0.2-1.0) 03/03/18 06:07 Neut # (Auto) 11.0 x10^3/uL (2.2-4.8) H 03/03/18 06:07 Lymph # (Auto) 1.5 X10^3/uL (1.3-2.9) 03/03/18 06:07 [place] # (Auto) 1.6 x10^3/uL (0.3-0.8) H 03/03/18 06:07 Eos # (Auto) 0.4 x10^3/uL (0.0-0.2) H 03/03/18 06:07 Baso # (Auto) 0.1 X10^3/uL (0.0-0.1) 03/03/18 06:07 Absolute Nucleated RBC 0.0 /100WBC 03/03/18 06:07 D-Dimer 550 ng/mL (0-400) H* 02/28/18 15:24 Sodium 132 mmol/L (136-145) L 03/03/18 06:07 Corrected Sodium TNP 03/03/18 06:07 Potassium 3.9 mmol/L (3.5-5.1) 03/03/18 06:07 Chloride 94 mmol/L (98-107) L 03/03/18 06:07 Carbon Dioxide 33.6 mmol/L (21-32) H 03/03/18 06:07 BUN 28 mg/dL (7-18) H 03/03/18 06:07 Creatinine 1.02 mg/dL (0.70-1.30) 03/03/18 06:07 Est GFR (MDRD) Af Amer > 60 (>60) 03/03/18 06:07 Est GFR (MDRD) Non-Af > 60 (>60) 03/03/18 06:07 Glucose 110 mg/dL (65-99) H 03/03/18 06:07 Calcium 8.1 mg/dL (8.5-10.1) L 03/03/18 06:07 Corrected Calcium 8.9 mg/dL (8.5-10.1) 03/03/18 06:07 Total Bilirubin 0.30 mg/dL (0.2-1.0) 03/03/18 06:07 AST 17 Units/L (15-37) 03/03/18 06:07 ALT 23 Units/L (12-78) 03/03/18 06:07 Alkaline Phosphatase 47 Units/L (46-116) 03/03/18 06:07 B-Natriuretic Peptide 26.8 pg/mL (0-79) 02/28/18 15:24 Total Protein 6.6 g/dL (6.4-8.2) 03/03/18 06:07 Albumin 3.0 g/dL (3.4-5.0) L 03/03/18 06:07 Globulin 3.6 g/dL (2.5-4.5) 03/03/18 06:07 Albumin/Globulin Ratio 0.8 Ratio (1.1-2.1) L 03/03/18 06:07 - Plan (1) COPD (chronic obstructive pulmonary disease) with acute bronchitis Status: Acute Plan: ABG ON ADMISSION, SUPPLEMENTAL O2, IV SOLU MEDROL. RESP THERAPY. RESUME HOME MEDS. AMLABS, UA ON ADMISSION (2) Respiratory distress Status: Acute Plan: RESP CARE, SUPPLEMENTAL O2. JET NEBS, ADMISSION ABG (3) CHF (congestive heart failure) Status: Chronic Qualifiers: Qualified Code(s): I50.43 - Acute on chronic combined systolic (congestive) and diastolic (congestive) heart failure (4) COPD (chronic obstructive pulmonary disease) Status: Chronic (5) Degenerative disc disease Status: Chronic Qualifiers: Spinal region: lumbar Qualified Code(s): M51.36 - Other intervertebral disc degeneration, lumbar region (6) GERD (gastroesophageal reflux disease) Status: Chronic (7) History of BPH Status: Chronic (8) History of [place] (myocardial infarction) Status: Chronic (9) History of emphysema Status: Chronic (10) Adult failure to thrive Status: Acute Plan: SUPPORTIVE CARE, ENCOURAGE PO INTAKE. DIETARY CONSULT, PT
[2018-03-03] MEDS: PEPCID 20 MG IV PREMIX* 20 MG/50 ML BAG IV SCH ×3 (14:04→23:30)
--- NOTE | 2018-03-03 14:08 | RAD ---
Examination: KUB History: Pain in abdomen and back with vomiting KUB was obtained. A significant portion of the left lateral abdomen, and flank are not included on th e image. What is seen is normal. Intestinal gas pattern is not distended. The lower pelvis is not inc luded. No abnormal calcification is seen. Impression: No acute process identified although technically limited by excluding portions of the pel vis and right lateral abdomen. Reported By:
[2018-03-03] MEDS ORDERED: ZOFRAN INJ 4 MG VIAL IVP PRN (19:50)
[2018-03-04] MEDS: MILK OF MAGNESIA PO PRN (00:23)
[2018-03-04] MEDS: COLACE CAP 100 MG PO PRN (00:23)
[2018-03-04] MEDS: DUONEB 0.5 MG/3 MG NEB SCH ×6 (00:31→20:23)
[2018-03-04 06:48] LABS: ALANINE AMINOTRANSFERASE 21 Units/L (12-78); ALBUMIN 2.9 g/dL (3.4-5.0); ALKALINE PHOSPHATASE 49 Units/L (46-116); ASPARTATE AMINO TRANSFERASE 17 Units/L (15-37); BLOOD UREA NITROGEN 26 mg/dL (7-18); CALCIUM 8.3 mg/dL (8.5-10.1); CARBON DIOXIDE 36.7 mmol/L (21-32); CHLORIDE 96 mmol/L (98-107); COR CA(FOR HYPOALB) 9.2 mg/dL (8.5-10.1); COR NA(FOR HYPERGLY) 136 mmol/L (136-145); CREATININE 1.16 mg/dL (0.70-1.30); SODIUM 136 mmol/L (136-145); TOTAL PROTEIN 6.5 g/dL (6.4-8.2); eGFR BLACK RACES > 60 (>60); eGFR NON BLACK RACES > 60 (>60)
[2018-03-04 06:50] LABS: BASOPHILS % (AUTO) 0.2 % (0.2-1.0); EOSINOPHILS % (AUTO) 0.2 % (0.9-2.9); HEMATOCRIT 35.5 % (42.0-54.0); HEMOGLOBIN 11.9 g/dL (13.5-18.0); LYMPHOCYTES % (AUTO) 5.2 % (21.0-51.0); MEAN CORPUSCULAR HEMOGLOBIN 29.3 pg (27.0-34.0); MEAN CORPUSCULAR HGB CONC 33.6 g/dL (33.0-35.0); MEAN CORPUSCULAR VOLUME 87.2 fL (80.0-100.0); MEAN PLATELET VOLUME 9.2 fL (7.4-11.0); MONOCYTES # (AUTO) 1.7 x10^3/uL (0.3-0.8); MONOCYTES % (AUTO) 9.2 % (0.0-13.0); NEUTROPHILS # (AUTO) 15.8 x10^3/uL (2.2-4.8); NEUTROPHILS % (AUTO) 85.2 % (42.0-75.0); PLATELET COUNT 228 X10^3/uL (150.0-450.0); RED BLOOD COUNT 4.07 X10^6/uL (4.7-6.0); RED CELL DISTRIBUTION WIDTH 15.4 % (11.6-16.5); WHITE BLOOD COUNT 18.5 X10^3/uL (3.6-10.0)
[2018-03-04] MEDS: PULMICORT NEB TX 0.5 MG NEB SCH ×2 (09:02→20:23)
[2018-03-04] MEDS: MUCOMYST 20% 200 MG/ML NEB SCH ×4 (09:02→20:23)
[2018-03-04] MEDS: PROTONIX INJ 40 MG VIAL IVP SCH (10:48)
[2018-03-04] MEDS: PEPCID 20 MG IV PREMIX* 20 MG/50 ML BAG IV SCH ×2 (10:48→22:46)
[2018-03-04] MEDS: LEVAQUIN PREMIX IV 500 MG 500 MG/100 ML BAG IV SCH (10:48)
[2018-03-04] MEDS: NORCO 10/325 TAB PO PRN (10:51)
[2018-03-04] MEDS ORDERED: NS 250 ML IV 250 ML IV ONE (23:16)
[2018-03-05] MEDS: DUONEB 0.5 MG/3 MG NEB SCH ×6 (00:38→21:53)
[2018-03-05] MEDS: NORCO 10/325 TAB PO PRN ×3 (05:08→21:13)
[2018-03-05 06:19] LABS: BASOPHILS % (AUTO) 0.1 % (0.2-1.0); EOSINOPHILS % (AUTO) 0.3 % (0.9-2.9); HEMATOCRIT 33.7 % (42.0-54.0); HEMOGLOBIN 11.4 g/dL (13.5-18.0); LYMPHOCYTES # (AUTO) 0.8 X10^3/uL (1.3-2.9); LYMPHOCYTES % (AUTO) 4.4 % (21.0-51.0); MEAN CORPUSCULAR HEMOGLOBIN 29.5 pg (27.0-34.0); MEAN CORPUSCULAR VOLUME 86.9 fL (80.0-100.0); MEAN PLATELET VOLUME 9.4 fL (7.4-11.0); MONOCYTES # (AUTO) 1.3 x10^3/uL (0.3-0.8); MONOCYTES % (AUTO) 7.5 % (0.0-13.0); NEUTROPHILS # (AUTO) 15.6 x10^3/uL (2.2-4.8); NEUTROPHILS % (AUTO) 87.7 % (42.0-75.0); PLATELET COUNT 228 X10^3/uL (150.0-450.0); RED BLOOD COUNT 3.87 X10^6/uL (4.7-6.0); RED CELL DISTRIBUTION WIDTH 15.3 % (11.6-16.5); WHITE BLOOD COUNT 17.8 X10^3/uL (3.6-10.0)
[2018-03-05 06:26] LABS: ALANINE AMINOTRANSFERASE 21 Units/L (12-78); ALBUMIN 2.8 g/dL (3.4-5.0); ALKALINE PHOSPHATASE 45 Units/L (46-116); ASPARTATE AMINO TRANSFERASE 18 Units/L (15-37); BLOOD UREA NITROGEN 21 mg/dL (7-18); CALCIUM 8.3 mg/dL (8.5-10.1); CHLORIDE 95 mmol/L (98-107); COR CA(FOR HYPOALB) 9.3 mg/dL (8.5-10.1); COR NA(FOR HYPERGLY) 135 mmol/L (136-145); CREATININE 1.16 mg/dL (0.70-1.30); SODIUM 135 mmol/L (136-145); TOTAL PROTEIN 6.9 g/dL (6.4-8.2); eGFR BLACK RACES > 60 (>60); eGFR NON BLACK RACES > 60 (>60)
[2018-03-05] MEDS: MUCOMYST 20% 200 MG/ML NEB SCH ×2 (09:00→12:12)
[2018-03-05] MEDS: PULMICORT NEB TX 0.5 MG NEB SCH ×2 (09:00→21:53)
[2018-03-05] MEDS: LEVAQUIN PREMIX IV 500 MG 500 MG/100 ML BAG IV SCH (09:44)
[2018-03-05] MEDS: PEPCID 20 MG IV PREMIX* 20 MG/50 ML BAG IV SCH ×2 (09:44→21:08)
[2018-03-05] MEDS: PROTONIX INJ 40 MG VIAL IVP SCH (09:44)
--- NOTE | 2018-03-05 10:59 | PCM.PROG ---
Progress Note - Progress Note for Day of Date: 03/04/18 - Subjective Subjective: 77 WM ER ADMISSION WITH RESP DISTRESS. PT HAS BEEN ON SUPPLEMENTAL O2 AND RESP THERAPY. PT CONTIUES WITH DIFFUSE RHONCHI AND DIMINISHED LUNG SOUNDS , PT IN MODERATE RESP DISTRESS. PT PREVIOUSLY ON HOSPICE FOR RESP FAILURE. PT CONTINUES TO CO COUGH AND GENERALIZED WEAKNESS, POOR APPETITE BUT DID EAT SMALL AMOUNT FOR BREAKFAST, DISCUSSED NURING HOME PLACEMENT DUE TO DECLINE AND AFTT - Past Medical Family Social History Past Med/Fam/Surg Hx: No changes since H&P Allergies: Allergies penicillin G Adverse Reaction (Verified 02/28/18 15:00) - Review of Systems ROS: No change since H&P - Vital Signs and I&O's Vital Signs: Temperature 99.1 F Pulse Rate [Left] 62 Pulse Rate 70 Respiratory Rate 20 Blood Pressure [Left Arm] 127/58 Blood Pressure [Right Arm] 127/59 Blood Pressure 131/64 O2 Sat by Pulse Oximetry 90 Intake and Output: Intake & Output 03/02/18 03/03/18 03/04/18 03/05/18 11:59 11:59 11:59 11:59 Intake Total 1120 1600 1450 1120 Output Total 1500 2600 1850 1550 Balance -380 -1000 -400 -430 - Physical Exam Oriented: Person Eyes: Normal Ear: Normal Nose: Normal Throat: Normal Respiratory: Diminished, Rhonchi Cardiovascular: negative: Edema : Normal Auscultation: Bowel Sounds: Normal Tenderness: Normal Skin: Decreased Turgur Musculoskeletal: Right, Left, Leg, Back:Thoracic, Back:Lumbar, Motor Deficit, Sensory Deficit, Instability Psychiatric: Depression Mood Description: Depressed Affect: Anxious, Depressed Speech Pattern: Clear, Appropriate - Laboratory and Diagnostics Result Diagrams: 03/05/18 05:36 03/05/18 05:36 Labs: Laboratory WBC 17.8 X10^3/uL (3.6-10.0) H 03/05/18 05:36 RBC 3.87 X10^6/uL (4.7-6.0) L 03/05/18 05:36 Hgb 11.4 g/dL (13.5-18.0) L 03/05/18 05:36 Hct 33.7 % (42.0-54.0) L 03/05/18 05:36 MCV 86.9 fL (80.0-100.0) 03/05/18 05:36 MCH 29.5 pg (27.0-34.0) 03/05/18 05:36 MCHC 34.0 g/dL (33.0-35.0) 03/05/18 05:36 RDW 15.3 % (11.6-16.5) 03/05/18 05:36 Plt Count 228 X10^3/uL (150.0-450.0) 03/05/18 05:36 MPV 9.4 fL (7.4-11.0) 03/05/18 05:36 Neut % (Auto) 87.7 % (42.0-75.0) H 03/05/18 05:36 Lymph % (Auto) 4.4 % (21.0-51.0) L 03/05/18 05:36 [place] % (Auto) 7.5 % (0.0-13.0) 03/05/18 05:36 Eos % (Auto) 0.3 % (0.9-2.9) L 03/05/18 05:36 Baso % (Auto) 0.1 % (0.2-1.0) L 03/05/18 05:36 Neut # (Auto) 15.6 x10^3/uL (2.2-4.8) H 03/05/18 05:36 Lymph # (Auto) 0.8 X10^3/uL (1.3-2.9) L 03/05/18 05:36 [place] # (Auto) 1.3 x10^3/uL (0.3-0.8) H 03/05/18 05:36 Eos # (Auto) 0.0 x10^3/uL (0.0-0.2) 03/05/18 05:36 Baso # (Auto) 0.0 X10^3/uL (0.0-0.1) 03/05/18 05:36 Absolute Nucleated RBC 0.0 /100WBC 03/05/18 05:36 D-Dimer 550 ng/mL (0-400) H* 02/28/18 15:24 Sodium 135 mmol/L (136-145) L 03/05/18 05:36 Corrected Sodium 135 mmol/L (136-145) L 03/05/18 05:36 Potassium 3.8 mmol/L (3.5-5.1) 03/05/18 05:36 Chloride 95 mmol/L (98-107) L 03/05/18 05:36 Carbon Dioxide 35.0 mmol/L (21-32) H 03/05/18 05:36 BUN 21 mg/dL (7-18) H 03/05/18 05:36 Creatinine 1.16 mg/dL (0.70-1.30) 03/05/18 05:36 Est GFR (MDRD) Af Amer > 60 (>60) 03/05/18 05:36 Est GFR (MDRD) Non-Af > 60 (>60) 03/05/18 05:36 Glucose 118 mg/dL (65-99) H 03/05/18 05:36 Calcium 8.3 mg/dL (8.5-10.1) L 03/05/18 05:36 Corrected Calcium 9.3 mg/dL (8.5-10.1) 03/05/18 05:36 Total Bilirubin 0.50 mg/dL (0.2-1.0) 03/05/18 05:36 AST 18 Units/L (15-37) 03/05/18 05:36 ALT 21 Units/L (12-78) 03/05/18 05:36 Alkaline Phosphatase 45 Units/L (46-116) L 03/05/18 05:36 B-Natriuretic Peptide 26.8 pg/mL (0-79) 02/28/18 15:24 Total Protein 6.9 g/dL (6.4-8.2) 03/05/18 05:36 Albumin 2.8 g/dL (3.4-5.0) L 03/05/18 05:36 Globulin 4.1 g/dL (2.5-4.5) 03/05/18 05:36 Albumin/Globulin Ratio 0.7 Ratio (1.1-2.1) L 03/05/18 05:36 - Plan (1) COPD (chronic obstructive pulmonary disease) with acute bronchitis Status: Acute Plan: ABG ON ADMISSION, SUPPLEMENTAL O2, IV SOLU MEDROL. RESP THERAPY. RESUME HOME MEDS. AMLABS, UA ON ADMISSION (2) Respiratory distress Status: Acute Plan: RESP CARE, SUPPLEMENTAL O2. JET NEBS, ADMISSION ABG (3) CHF (congestive heart failure) Status: Chronic Qualifiers: Qualified Code(s): I50.43 - Acute on chronic combined systolic (congestive) and diastolic (congestive) heart failure (4) COPD (chronic obstructive pulmonary disease) Status: Chronic (5) Degenerative disc disease Status: Chronic Qualifiers: Spinal region: lumbar Qualified Code(s): M51.36 - Other intervertebral disc degeneration, lumbar region (6) GERD (gastroesophageal reflux disease) Status: Chronic (7) History of BPH Status: Chronic (8) History of [place] (myocardial infarction) Status: Chronic (9) History of emphysema Status: Chronic (10) Adult failure to thrive Status: Acute Plan: SUPPORTIVE CARE, ENCOURAGE PO INTAKE. DIETARY CONSULT, PT. USP PLACEMENT
--- NOTE | 2018-03-05 11:03 | PCM.PROG ---
Progress Note - Progress Note for Day of Date: 03/05/18 - Subjective Subjective: 77 WM ER ADMISSION WITH RESP DISTRESS. PT HAS BEEN ON SUPPLEMENTAL O2 AND RESP THERAPY. PT CONTIUES WITH DIFFUSE RHONCHI AND DIMINISHED LUNG SOUNDS , PT IN MODERATE RESP DISTRESS. PT PREVIOUSLY ON HOSPICE FOR RESP FAILURE. PT CONTINUES TO CO COUGH AND GENERALIZED WEAKNESS, POOR APPETITE . PT EXPERIENCED INCREASE CONFUSION DURING THE NIGHT PULLING O2 OFF. CONFUSION RESOLVED WITH TREATMENT OF HYPOXIA. DISCUSSED NURING HOME PLACEMENT DUE TO DECLINE AND AFTT - Past Medical Family Social History Past Med/Fam/Surg Hx: No changes since H&P Allergies: Allergies penicillin G Adverse Reaction (Verified 02/28/18 15:00) - Review of Systems ROS: No change since H&P - Vital Signs and I&O's Vital Signs: Temperature 99.1 F Pulse Rate [Left] 62 Pulse Rate 70 Respiratory Rate 20 Blood Pressure [Left Arm] 127/58 Blood Pressure [Right Arm] 127/59 Blood Pressure 131/64 O2 Sat by Pulse Oximetry 90 Intake and Output: Intake & Output 03/02/18 03/03/18 03/04/18 03/05/18 11:59 11:59 11:59 11:59 Intake Total 1120 1600 1450 1120 Output Total 1500 2600 1850 1550 Balance -380 -1000 -400 -430 - Physical Exam Oriented: Person Eyes: Normal Ear: Normal Nose: Normal Throat: Normal Respiratory: Diminished, Rhonchi Cardiovascular: negative: Edema : Normal Auscultation: Bowel Sounds: Normal Tenderness: Normal Skin: Decreased Turgur Musculoskeletal: Right, Left, Leg, Back:Thoracic, Back:Lumbar, Motor Deficit, Sensory Deficit, Instability Psychiatric: Depression Mood Description: Depressed Affect: Anxious, Depressed Speech Pattern: Clear, Appropriate - Laboratory and Diagnostics Result Diagrams: 03/05/18 05:36 03/05/18 05:36 Labs: Laboratory WBC 17.8 X10^3/uL (3.6-10.0) H 03/05/18 05:36 RBC 3.87 X10^6/uL (4.7-6.0) L 03/05/18 05:36 Hgb 11.4 g/dL (13.5-18.0) L 03/05/18 05:36 Hct 33.7 % (42.0-54.0) L 03/05/18 05:36 MCV 86.9 fL (80.0-100.0) 03/05/18 05:36 MCH 29.5 pg (27.0-34.0) 03/05/18 05:36 MCHC 34.0 g/dL (33.0-35.0) 03/05/18 05:36 RDW 15.3 % (11.6-16.5) 03/05/18 05:36 Plt Count 228 X10^3/uL (150.0-450.0) 03/05/18 05:36 MPV 9.4 fL (7.4-11.0) 03/05/18 05:36 Neut % (Auto) 87.7 % (42.0-75.0) H 03/05/18 05:36 Lymph % (Auto) 4.4 % (21.0-51.0) L 03/05/18 05:36 [place] % (Auto) 7.5 % (0.0-13.0) 03/05/18 05:36 Eos % (Auto) 0.3 % (0.9-2.9) L 03/05/18 05:36 Baso % (Auto) 0.1 % (0.2-1.0) L 03/05/18 05:36 Neut # (Auto) 15.6 x10^3/uL (2.2-4.8) H 03/05/18 05:36 Lymph # (Auto) 0.8 X10^3/uL (1.3-2.9) L 03/05/18 05:36 [place] # (Auto) 1.3 x10^3/uL (0.3-0.8) H 03/05/18 05:36 Eos # (Auto) 0.0 x10^3/uL (0.0-0.2) 03/05/18 05:36 Baso # (Auto) 0.0 X10^3/uL (0.0-0.1) 03/05/18 05:36 Absolute Nucleated RBC 0.0 /100WBC 03/05/18 05:36 D-Dimer 550 ng/mL (0-400) H* 02/28/18 15:24 Sodium 135 mmol/L (136-145) L 03/05/18 05:36 Corrected Sodium 135 mmol/L (136-145) L 03/05/18 05:36 Potassium 3.8 mmol/L (3.5-5.1) 03/05/18 05:36 Chloride 95 mmol/L (98-107) L 03/05/18 05:36 Carbon Dioxide 35.0 mmol/L (21-32) H 03/05/18 05:36 BUN 21 mg/dL (7-18) H 03/05/18 05:36 Creatinine 1.16 mg/dL (0.70-1.30) 03/05/18 05:36 Est GFR (MDRD) Af Amer > 60 (>60) 03/05/18 05:36 Est GFR (MDRD) Non-Af > 60 (>60) 03/05/18 05:36 Glucose 118 mg/dL (65-99) H 03/05/18 05:36 Calcium 8.3 mg/dL (8.5-10.1) L 03/05/18 05:36 Corrected Calcium 9.3 mg/dL (8.5-10.1) 03/05/18 05:36 Total Bilirubin 0.50 mg/dL (0.2-1.0) 03/05/18 05:36 AST 18 Units/L (15-37) 03/05/18 05:36 ALT 21 Units/L (12-78) 03/05/18 05:36 Alkaline Phosphatase 45 Units/L (46-116) L 03/05/18 05:36 B-Natriuretic Peptide 26.8 pg/mL (0-79) 02/28/18 15:24 Total Protein 6.9 g/dL (6.4-8.2) 03/05/18 05:36 Albumin 2.8 g/dL (3.4-5.0) L 03/05/18 05:36 Globulin 4.1 g/dL (2.5-4.5) 03/05/18 05:36 Albumin/Globulin Ratio 0.7 Ratio (1.1-2.1) L 03/05/18 05:36 - Plan (1) COPD (chronic obstructive pulmonary disease) with acute bronchitis Status: Acute Plan: ABG ON ADMISSION, SUPPLEMENTAL O2, IV SOLU MEDROL. RESP THERAPY. RESUME HOME MEDS. AMLABS, UA ON ADMISSION (2) Respiratory distress Status: Acute Plan: RESP CARE, SUPPLEMENTAL O2. JET NEBS, ADMISSION ABG (3) CHF (congestive heart failure) Status: Chronic Qualifiers: Qualified Code(s): I50.43 - Acute on chronic combined systolic (congestive) and diastolic (congestive) heart failure (4) COPD (chronic obstructive pulmonary disease) Status: Chronic (5) Degenerative disc disease Status: Chronic Qualifiers: Spinal region: lumbar Qualified Code(s): M51.36 - Other intervertebral disc degeneration, lumbar region (6) GERD (gastroesophageal reflux disease) Status: Chronic (7) History of BPH Status: Chronic (8) History of [place] (myocardial infarction) Status: Chronic (9) History of emphysema Status: Chronic (10) Adult failure to thrive Status: Acute Plan: SUPPORTIVE CARE, ENCOURAGE PO INTAKE. DIETARY CONSULT, PT. CORRECTION PLACEMENT
[2018-03-05] MEDS ORDERED: NS 500 ML IV 500 ML IV ONE (17:15)
[2018-03-05] MEDS: COLACE CAP 100 MG PO PRN (21:08)
[2018-03-05] MEDS: MILK OF MAGNESIA PO PRN (21:08)
[2018-03-05] MEDS ORDERED: MORPHINE SULFATE INJ 2 MG INJ IVP PRN (22:52)
[2018-03-05] MEDS ORDERED: ULTRAM PO PRN (23:24)
[2018-03-06] MEDS: DUONEB 0.5 MG/3 MG NEB SCH ×5 (00:59→16:17)
[2018-03-06 06:22] LABS: BASOPHILS % (AUTO) 0.3 % (0.2-1.0); EOSINOPHILS # (AUTO) 0.4 x10^3/uL (0.0-0.2); EOSINOPHILS % (AUTO) 3.7 % (0.9-2.9); HEMOGLOBIN 11.3 g/dL (13.5-18.0); LYMPHOCYTES # (AUTO) 1.6 X10^3/uL (1.3-2.9); LYMPHOCYTES % (AUTO) 12.8 % (21.0-51.0); MEAN CORPUSCULAR HEMOGLOBIN 29.8 pg (27.0-34.0); MEAN CORPUSCULAR HGB CONC 34.2 g/dL (33.0-35.0); MEAN CORPUSCULAR VOLUME 87.1 fL (80.0-100.0); MEAN PLATELET VOLUME 8.7 fL (7.4-11.0); MONOCYTES # (AUTO) 1.2 x10^3/uL (0.3-0.8); MONOCYTES % (AUTO) 9.5 % (0.0-13.0); NEUTROPHILS % (AUTO) 73.7 % (42.0-75.0); PLATELET COUNT 215 X10^3/uL (150.0-450.0); RED BLOOD COUNT 3.78 X10^6/uL (4.7-6.0); RED CELL DISTRIBUTION WIDTH 15.5 % (11.6-16.5); WHITE BLOOD COUNT 12.2 X10^3/uL (3.6-10.0)
[2018-03-06 06:31] LABS: ALANINE AMINOTRANSFERASE 17 Units/L (12-78); ALBUMIN 2.7 g/dL (3.4-5.0); ALKALINE PHOSPHATASE 42 Units/L (46-116); ASPARTATE AMINO TRANSFERASE 18 Units/L (15-37); BLOOD UREA NITROGEN 19 mg/dL (7-18); CALCIUM 8.2 mg/dL (8.5-10.1); CARBON DIOXIDE 38.2 mmol/L (21-32); CHLORIDE 98 mmol/L (98-107); COR CA(FOR HYPOALB) 9.2 mg/dL (8.5-10.1); CREATININE 1.06 mg/dL (0.70-1.30); SODIUM 137 mmol/L (136-145); TOTAL PROTEIN 6.3 g/dL (6.4-8.2); eGFR BLACK RACES > 60 (>60); eGFR NON BLACK RACES > 60 (>60)
[2018-03-06] MEDS: PEPCID 20 MG IV PREMIX* 20 MG/50 ML BAG IV SCH ×2 (08:11→20:53)
[2018-03-06] MEDS: PROTONIX INJ 40 MG VIAL IVP SCH (08:11)
[2018-03-06] MEDS: LEVAQUIN PREMIX IV 500 MG 500 MG/100 ML BAG IV SCH (08:11)
[2018-03-06] MEDS: PULMICORT NEB TX 0.5 MG NEB SCH (08:39)
[2018-03-06] MEDS: NORCO 10/325 TAB PO PRN ×2 (14:30→20:52)
--- NOTE | 2018-03-06 18:06 | PCM.PROG ---
Progress Note - Progress Note for Day of Date: 03/06/18 - Subjective Subjective: 77 WM ER ADMISSION WITH RESP DISTRESS. PT HAS BEEN ON SUPPLEMENTAL O2 AND RESP THERAPY. PT CONTIUES WITH DIFFUSE RHONCHI AND DIMINISHED LUNG SOUNDS , PT IN MODERATE RESP DISTRESS. PT PREVIOUSLY ON HOSPICE FOR RESP FAILURE. PT CONTINUES TO CO COUGH AND GENERALIZED WEAKNESS, SLIGHTLY IMPROVED APPETITE BUT SEVERE COUGHING INDUCES VOMITING. DISCUSSED NURING HOME PLACEMENT DUE TO DECLINE AND AFTT - Past Medical Family Social History Past Med/Fam/Surg Hx: No changes since H&P Allergies: Allergies penicillin G Adverse Reaction (Verified 02/28/18 15:00) - Review of Systems ROS: No change since H&P - Vital Signs and I&O's Vital Signs: Temperature 98.0 F Pulse Rate [Right Brachial] 71 Pulse Rate [Left] 60 Pulse Rate 71 Respiratory Rate 18 Blood Pressure [Left Arm] 120/57 Blood Pressure [Right Arm] 120/64 Blood Pressure 131/64 O2 Sat by Pulse Oximetry 94 Intake and Output: Intake & Output 03/04/18 03/05/18 03/06/18 03/07/18 11:59 11:59 11:59 11:59 Intake Total 1450 1120 860 420 Output Total 1850 1550 1200 Balance -400 -430 -340 420 - Physical Exam Oriented: Person Eyes: Normal Ear: Normal Nose: Normal Throat: Normal Respiratory: Diminished, Rhonchi Cardiovascular: negative: Edema : Normal Auscultation: Bowel Sounds: Normal Tenderness: Normal Skin: Decreased Turgur Musculoskeletal: Right, Left, Leg, Back:Thoracic, Back:Lumbar, Motor Deficit, Sensory Deficit, Instability Psychiatric: Depression Mood Description: Depressed Affect: Anxious, Depressed Speech Pattern: Clear, Appropriate - Laboratory and Diagnostics Result Diagrams: 03/06/18 05:55 03/06/18 05:55 Labs: Laboratory WBC 12.2 X10^3/uL (3.6-10.0) H 03/06/18 05:55 RBC 3.78 X10^6/uL (4.7-6.0) L 03/06/18 05:55 Hgb 11.3 g/dL (13.5-18.0) L 03/06/18 05:55 Hct 33.0 % (42.0-54.0) L 03/06/18 05:55 MCV 87.1 fL (80.0-100.0) 03/06/18 05:55 MCH 29.8 pg (27.0-34.0) 03/06/18 05:55 MCHC 34.2 g/dL (33.0-35.0) 03/06/18 05:55 RDW 15.5 % (11.6-16.5) 03/06/18 05:55 Plt Count 215 X10^3/uL (150.0-450.0) 03/06/18 05:55 MPV 8.7 fL (7.4-11.0) 03/06/18 05:55 Neut % (Auto) 73.7 % (42.0-75.0) 03/06/18 05:55 Lymph % (Auto) 12.8 % (21.0-51.0) L 03/06/18 05:55 [place] % (Auto) 9.5 % (0.0-13.0) 03/06/18 05:55 Eos % (Auto) 3.7 % (0.9-2.9) H 03/06/18 05:55 Baso % (Auto) 0.3 % (0.2-1.0) 03/06/18 05:55 Neut # (Auto) 9.0 x10^3/uL (2.2-4.8) H 03/06/18 05:55 Lymph # (Auto) 1.6 X10^3/uL (1.3-2.9) 03/06/18 05:55 [place] # (Auto) 1.2 x10^3/uL (0.3-0.8) H 03/06/18 05:55 Eos # (Auto) 0.4 x10^3/uL (0.0-0.2) H 03/06/18 05:55 Baso # (Auto) 0.0 X10^3/uL (0.0-0.1) 03/06/18 05:55 Absolute Nucleated RBC 0.0 /100WBC 03/06/18 05:55 D-Dimer 550 ng/mL (0-400) H* 02/28/18 15:24 Sodium 137 mmol/L (136-145) 03/06/18 05:55 Corrected Sodium TNP 03/06/18 05:55 Potassium 4.0 mmol/L (3.5-5.1) 03/06/18 05:55 Chloride 98 mmol/L (98-107) 03/06/18 05:55 Carbon Dioxide 38.2 mmol/L (21-32) H 03/06/18 05:55 BUN 19 mg/dL (7-18) H 03/06/18 05:55 Creatinine 1.06 mg/dL (0.70-1.30) 03/06/18 05:55 Est GFR (MDRD) Af Amer > 60 (>60) 03/06/18 05:55 Est GFR (MDRD) Non-Af > 60 (>60) 03/06/18 05:55 Glucose 97 mg/dL (65-99) 03/06/18 05:55 Calcium 8.2 mg/dL (8.5-10.1) L 03/06/18 05:55 Corrected Calcium 9.2 mg/dL (8.5-10.1) 03/06/18 05:55 Total Bilirubin 0.30 mg/dL (0.2-1.0) 03/06/18 05:55 AST 18 Units/L (15-37) 03/06/18 05:55 ALT 17 Units/L (12-78) 03/06/18 05:55 Alkaline Phosphatase 42 Units/L (46-116) L 03/06/18 05:55 B-Natriuretic Peptide 26.8 pg/mL (0-79) 02/28/18 15:24 Total Protein 6.3 g/dL (6.4-8.2) L 03/06/18 05:55 Albumin 2.7 g/dL (3.4-5.0) L 03/06/18 05:55 Globulin 3.6 g/dL (2.5-4.5) 03/06/18 05:55 Albumin/Globulin Ratio 0.8 Ratio (1.1-2.1) L 03/06/18 05:55 - Plan (1) COPD (chronic obstructive pulmonary disease) with acute bronchitis Status: Acute Plan: ABG ON ADMISSION, SUPPLEMENTAL O2, IV SOLU MEDROL. RESP THERAPY. RESUME HOME MEDS. AMLABS, UA ON ADMISSION (2) Respiratory distress Status: Acute Plan: RESP CARE, SUPPLEMENTAL O2. JET NEBS, ADMISSION ABG (3) CHF (congestive heart failure) Status: Chronic Qualifiers: Qualified Code(s): I50.43 - Acute on chronic combined systolic (congestive) and diastolic (congestive) heart failure (4) COPD (chronic obstructive pulmonary disease) Status: Chronic (5) Degenerative disc disease Status: Chronic Qualifiers: Spinal region: lumbar Qualified Code(s): M51.36 - Other intervertebral disc degeneration, lumbar region (6) GERD (gastroesophageal reflux disease) Status: Chronic (7) History of BPH Status: Chronic (8) History of [place] (myocardial infarction) Status: Chronic (9) History of emphysema Status: Chronic (10) Adult failure to thrive Status: Acute Plan: SUPPORTIVE CARE, ENCOURAGE PO INTAKE. DIETARY CONSULT, PT. [facility]
[2018-03-07] MEDS: DUONEB 0.5 MG/3 MG NEB SCH ×5 (00:48→13:16)
[2018-03-07] MEDS: PULMICORT NEB TX 0.5 MG NEB SCH ×2 (01:06→09:56)
[2018-03-07] MEDS: NORCO 10/325 TAB PO PRN (03:19)
[2018-03-07 06:26] LABS: BASOPHILS # (AUTO) 0.1 X10^3/uL (0.0-0.1); EOSINOPHILS # (AUTO) 0.5 x10^3/uL (0.0-0.2); EOSINOPHILS % (AUTO) 4.2 % (0.9-2.9); HEMATOCRIT 30.3 % (42.0-54.0); HEMOGLOBIN 10.1 g/dL (13.5-18.0); LYMPHOCYTES # (AUTO) 1.6 X10^3/uL (1.3-2.9); LYMPHOCYTES % (AUTO) 14.3 % (21.0-51.0); MEAN CORPUSCULAR HEMOGLOBIN 29.4 pg (27.0-34.0); MEAN CORPUSCULAR HGB CONC 33.2 g/dL (33.0-35.0); MEAN CORPUSCULAR VOLUME 88.5 fL (80.0-100.0); MEAN PLATELET VOLUME 9.6 fL (7.4-11.0); MONOCYTES # (AUTO) 1.5 x10^3/uL (0.3-0.8); MONOCYTES % (AUTO) 13.1 % (0.0-13.0); NEUTROPHILS # (AUTO) 7.7 x10^3/uL (2.2-4.8); NEUTROPHILS % (AUTO) 67.4 % (42.0-75.0); PLATELET COUNT 223 X10^3/uL (150.0-450.0); RED BLOOD COUNT 3.42 X10^6/uL (4.7-6.0); RED CELL DISTRIBUTION WIDTH 15.6 % (11.6-16.5); WHITE BLOOD COUNT 11.4 X10^3/uL (3.6-10.0)
[2018-03-07 06:39] LABS: ALANINE AMINOTRANSFERASE 17 Units/L (12-78); ALBUMIN 2.4 g/dL (3.4-5.0); ALKALINE PHOSPHATASE 36 Units/L (46-116); ASPARTATE AMINO TRANSFERASE 15 Units/L (15-37); BLOOD UREA NITROGEN 13 mg/dL (7-18); CALCIUM 7.7 mg/dL (8.5-10.1); CARBON DIOXIDE 34.4 mmol/L (21-32); CHLORIDE 99 mmol/L (98-107); CREATININE 1.12 mg/dL (0.70-1.30); SODIUM 136 mmol/L (136-145); TOTAL PROTEIN 5.6 g/dL (6.4-8.2); eGFR BLACK RACES > 60 (>60); eGFR NON BLACK RACES > 60 (>60)
[2018-03-07] MEDS: LEVAQUIN PREMIX IV 500 MG 500 MG/100 ML BAG IV SCH (09:23)
[2018-03-07] MEDS: PROTONIX INJ 40 MG VIAL IVP SCH (09:23)
[2018-03-07] MEDS: PEPCID 20 MG IV PREMIX* 20 MG/50 ML BAG IV SCH (09:23)
[2018-03-07] MEDS ORDERED: REGLAN INJ 10 MG VIAL IVP ONE (13:10)
[2018-03-07 13:37] LABS: ABG BASE EXCESS 8.2 mmol/L (-2.0-2.0)
[2018-03-07 13:38] LABS: ABG HCO3 33.4 mmol/L (22-26)
[2018-03-07 13:39] LABS: ABG ALLEN TEST POS
[2018-03-07 14:09] VITALS: BP 123/58
== END 2018-03-07 14:55 | DRG 192 ==
LOC: ER 15:05 → OBS 17:06 → OBSVTOIN 03-02 09:00 → MED/SURG 03-03 16:23
PROVIDERS: ADMIT Internal Medicine; ATTEND Internal Medicine
DX: J44.1 Chronic obstructive pulmonary disease with (acute) exacerbation (principal); R06.03 Acute respiratory distress; I50.9 Heart failure, unspecified; R06.02 Shortness of breath; Z99.81 Dependence on supplemental oxygen; F41.8 Other specified anxiety disorders; M19.90 Unspecified osteoarthritis, unspecified site; I25.10 Atherosclerotic heart disease of native coronary artery without angina pectoris; F32.89 Other specified depressive episodes; K21.9 Gastro-esophageal reflux disease without esophagitis; I10 Essential (primary) hypertension; R94.31 Abnormal electrocardiogram [ECG] [EKG]; M51.36 Other intervertebral disc degeneration, lumbar region; I25.2 Old myocardial infarction; Z87.09 Personal history of other diseases of the respiratory system; Z87.898 Personal history of other specified conditions; R62.7 Adult failure to thrive; R94.4 Abnormal results of kidney function studies; R73.09 Other abnormal glucose; R79.1 Abnormal coagulation profile
CPT/HCPCS: 36415; 36600; 70450; 71045; 74018; 80053; 82803; 83880; 85025; 85378; 93005; 93010; 94640; 94760; 96365; 96374; 99284; A4222; C9113; S0028; G0378; J1940; J1956; J2270; J2405; J2765; J2930; J7608; J7620; J7626

== ENCOUNTER 2018-07-18 09:56 | Inpatient (IN) ==
--- NOTE | 2018-07-18 12:49 | DR.H&P ---
H&P - History & Physical for Day of: H&P Date: 07/18/18 - Chief Complaint Chief Complaint: dehydration, elevated potassiuml, scalp abscess +mrsa - History of Present Illness History of Present Illness: 77 WM DIRECT [facility] WITH ACUTE ON CHRONIC RENAL FAILURE, HYPERKALEMIA, DEHYDRATION, MRSA SCALP ABSCESS. PT WAS TREATED OVER THE PAST WEEK WITH BACTRIM PO FOR SCALP ABSCESS, POSITIVE CULTURE FOR MRSA. NURSING STAFF STATES WOUND STILL DRAINING PURULENT D/C. CMP COLLECTED ONE DAY AGO WITH HYPERKALEMIA AND ACUTE RENAL INSUFFICENCY. PT HAS PMH OF HTN, OA CAD, COPD WITH RESP FAILURE, GENERALIZED WEAKNESS. PT ADMITTED FOR TREATMENT AND EVALUATION OF DEHYDRATION ELECTROLYTE IMBALANCE, ATBX THERAPY, WOUND CARE - Past Medical History Past Medical History: Anemia, Angina, Anxiety, Arthritis, CHF, COPD, Coronary Artery Disease, Depression, Dyslipidemia, GERD, Hypertension, [place] Additional Medical History: Hx BPH, Degenerative Disc Disease, Hx Skin Cancer - Past Surgical History Surgical History: Ortho Surgery, Tonsillectomy Additional Surgical History: 2 Inguinal Hernia Repairs, 1 Umbilical Hernia Repair - Family History Family Medical History: Cancer, Heart Failure, Hypertension - Social History Does patient currently use any type of tobacco product: No Have you used tobacco products in the last 12 months: No Does any household member use tobacco: No Alcohol Use: None Drug Use: None - Medications Home Medications: penicillin G Adverse Reaction (Verified 02/28/18 15:00) - Review of Systems Constitutional: Weakness Eyes: No Symptoms Reported ENT: No Symptoms Reported Respiratory: Shortness of Breath, SOB with Excertion, Wheezing Cardiovascular: No Symptoms Reported. denies: Edema Gastrointestinal: No Symptoms Reported Genitourinary: No Symptoms Reported Musculoskeletal: Shoulder Pain, Back Pain, Leg Pain Skin: Wound (POSTERIOR SCALP) Neurological: Weakness - Physical Exam Vital Signs: Temperature 97.5 F Pulse Rate [Right Brachial] 53 Respiratory Rate 18 Blood Pressure [Left Arm] 129/61 Blood Pressure [Right Arm] 154/68 Blood Pressure 123/58 O2 Sat by Pulse Oximetry 96 Oriented: Normal Eyes: Normal Ear: Normal Nose: Normal Throat: Normal Respiratory: Diminished Throughout Cardiovascular: Normal. negative: Murmur : Normal Auscultation: Bowel Sounds: Normal, Absent Tenderness: Normal Skin: Tender, Wound Musculoskeletal: Motor Deficit, Sensory Deficit Psychiatric: Depression Affect: Anxious Speech Pattern: Clear, Appropriate - Assessment/Plan (1) Acute on chronic renal failure Status: Acute Plan: ADMIT, CBC CMP UA CXR EKG ON ADMISSION. GENTLE HYDRATION, MONITOR I & OS. BP MONITORING, RESP CONSULTATION TO RESUME HOME RESP REGIMEN. WOUND CONSULTATION, HOLD PO BACTRIM. PLAN TO REPEAT CMP Q AM AFTER HYDRATION, HOLD PO POTASSIUM (2) Scalp abscess Status: Acute (3) Hyperkalemia Status: Acute (4) Adult failure to thrive Status: Acute (5) CHF (congestive heart failure) Qualifiers: Qualified Code(s): I50.43 - Acute on chronic combined systolic (congestive) and diastolic (congestive) heart failure Status: Chronic (6) COPD (chronic obstructive pulmonary disease) Status: Chronic (7) Hypertension Qualifiers: Hypertension type: essential hypertension Qualified Code(s): I10 - Essential (primary) hypertension Status: Chronic (8) Arthritis Status: Chronic (9) Depression Status: Chronic - Allergies Allergies/Adverse Reactions: Allergies Allergy/AdvReac Type Severity Reaction Status Date / Time penicillin G AdvReac Verified 02/28/18 15:00
[2018-07-18 13:12] LABS: BASOPHILS # (AUTO) 0.1 X10^3/uL (0.0-0.1); BASOPHILS % (AUTO) 0.9 % (0.2-1.0); EOSINOPHILS # (AUTO) 0.4 x10^3/uL (0.0-0.2); EOSINOPHILS % (AUTO) 3.1 % (0.9-2.9); HEMATOCRIT 26.4 % (42.0-54.0); HEMOGLOBIN 8.5 g/dL (13.5-18.0); LYMPHOCYTES # (AUTO) 0.9 X10^3/uL (1.3-2.9); LYMPHOCYTES % (AUTO) 7.3 % (21.0-51.0); MEAN CORPUSCULAR HEMOGLOBIN 27.2 pg (27.0-34.0); MEAN CORPUSCULAR HGB CONC 32.3 g/dL (33.0-35.0); MEAN CORPUSCULAR VOLUME 84.1 fL (80.0-100.0); MEAN PLATELET VOLUME 7.7 fL (7.4-11.0); MONOCYTES # (AUTO) 0.7 x10^3/uL (0.3-0.8); MONOCYTES % (AUTO) 5.6 % (0.0-13.0); NEUTROPHILS % (AUTO) 83.1 % (42.0-75.0); PLATELET COUNT 327 X10^3/uL (150.0-450.0); RED BLOOD COUNT 3.14 X10^6/uL (4.7-6.0); RED CELL DISTRIBUTION WIDTH 16.8 % (11.6-16.5)
--- NOTE | 2018-07-18 13:12 | RAD ---
HISTORY: Respiratory failure and COPD. Study: Portable chest. Comparison: Chest x-ray dated March 03, 2018. Findings: The trachea is midline. The cardiac silhouette is unremarkable. Chronic emphysematous and interstiti al lung changes. No obvious focal consolidation, pleural effusion, or pneumothorax. The bony thorax is unremarkable. IMPRESSION: No acute cardiopulmonary disease. Reported By:
[2018-07-18 13:26] LABS: ALBUMIN 3.2 g/dL (3.4-5.0); CALCIUM 8.5 mg/dL (8.5-10.1); CARBON DIOXIDE 33.7 mmol/L (21-32); COR CA(FOR HYPOALB) 9.1 mg/dL (8.5-10.1); CREATININE 2.13 mg/dL (0.70-1.30); TOTAL PROTEIN 6.5 g/dL (6.4-8.2)
[2018-07-18 14:58] VITALS: BMI 16.9
[2018-07-18] MEDS: NS 1000 ML 1,000 ML IV SCH (14:59)
[2018-07-18] MEDS ORDERED: CONSULT PHARMACY - ANTIBIOTIC XX SCH (15:00)
[2018-07-18] MEDS ORDERED: CHRONULAC PO PRN (15:26)
[2018-07-18] MEDS: FORTAZ or TAZICEF VIAL INJ 1 G in NS 100 ML IV + SPIKE MINIBAG* 100 ML IV SCH (16:21)
[2018-07-18] MEDS: NORCO 10/325 TAB PO PRN ×2 (16:22→22:38)
[2018-07-18] MEDS: VANCOMYCIN HCL 1 GM VIAL 1 G in D5W 250 ML IV 250 ML IV SCH (17:34)
[2018-07-18] MEDS: DUONEB 0.5 MG/3 MG NEB SCH (17:46)
[2018-07-18] MEDS: BACTROBAN TOPICAL OINT TOP SCH (21:49)
[2018-07-18] MEDS: COLACE CAP 100 MG PO SCH (21:49)
[2018-07-18] MEDS: PROVENTIL NEB TX 0.083% 2.5MG/ 3ML NEB PRN (21:49)
[2018-07-19] MEDS: DUONEB 0.5 MG/3 MG NEB SCH ×5 (01:13→23:20)
[2018-07-19 02:14] LABS: BILIRUBIN,URINE NEGATIVE (NEGATIVE); BLOOD/HEMOGLOBIN,URINE NEGATIVE (NEGATIVE); GLUCOSE, URINE NEGATIVE (NEGATIVE); KETONES,URINE NEGATIVE (NEGATIVE); LEUKOCYTE ESTERASE ,URINE 2+ (NEGATIVE); NITRITES,URINE POSITIVE (NEGATIVE); PROTEIN,URINE NEGATIVE (NEGATIVE); UROBILINOGEN,URINE NORMAL (NORMAL)
[2018-07-19 02:29] LABS: APPEARANCE,URINE CLEAR (CLEAR); BACTERIA,URINE 3+ /HPF (NEGATIVE); COLOR,URINE YELLOW (YELLOW); RBC,URINE NONE SEEN /HPF (NONE SEEN); SQUAMOUS EPITHELIAL CELL,UR RARE /HPF (NEGATIVE)
[2018-07-19] MEDS: NS 1000 ML 1,000 ML IV SCH (05:36)
[2018-07-19] MEDS: BACTROBAN TOPICAL OINT TOP SCH ×3 (05:39→21:49)
[2018-07-19] MEDS: NORCO 10/325 TAB PO PRN ×2 (05:44→18:35)
[2018-07-19 06:08] LABS: BASOPHILS # (AUTO) 0.1 X10^3/uL (0.0-0.1); BASOPHILS % (AUTO) 0.7 % (0.2-1.0); EOSINOPHILS # (AUTO) 0.6 x10^3/uL (0.0-0.2); EOSINOPHILS % (AUTO) 5.9 % (0.9-2.9); HEMATOCRIT 25.5 % (42.0-54.0); HEMOGLOBIN 8.3 g/dL (13.5-18.0); LYMPHOCYTES # (AUTO) 1.7 X10^3/uL (1.3-2.9); LYMPHOCYTES % (AUTO) 16.3 % (21.0-51.0); MEAN CORPUSCULAR HEMOGLOBIN 27.6 pg (27.0-34.0); MEAN CORPUSCULAR HGB CONC 32.7 g/dL (33.0-35.0); MEAN CORPUSCULAR VOLUME 84.3 fL (80.0-100.0); MEAN PLATELET VOLUME 7.7 fL (7.4-11.0); MONOCYTES # (AUTO) 0.9 x10^3/uL (0.3-0.8); NEUTROPHILS # (AUTO) 7.4 x10^3/uL (2.2-4.8); NEUTROPHILS % (AUTO) 69.1 % (42.0-75.0); PLATELET COUNT 289 X10^3/uL (150.0-450.0); RED BLOOD COUNT 3.02 X10^6/uL (4.7-6.0); RED CELL DISTRIBUTION WIDTH 16.5 % (11.6-16.5); WHITE BLOOD COUNT 10.7 X10^3/uL (3.6-10.0)
[2018-07-19 06:27] LABS: ALANINE AMINOTRANSFERASE 13 Units/L (12-78); ALBUMIN 2.8 g/dL (3.4-5.0); ALKALINE PHOSPHATASE 48 Units/L (46-116); ASPARTATE AMINO TRANSFERASE 15 Units/L (15-37); BLOOD UREA NITROGEN 45 mg/dL (7-18); CALCIUM 8.4 mg/dL (8.5-10.1); CHLORIDE 101 mmol/L (98-107); COR CA(FOR HYPOALB) 9.4 mg/dL (8.5-10.1); CREATININE 1.85 mg/dL (0.70-1.30); SODIUM 137 mmol/L (136-145); TOTAL PROTEIN 6.5 g/dL (6.4-8.2); eGFR NON BLACK RACES 38 (>60)
[2018-07-19] MEDS: FORTAZ or TAZICEF VIAL INJ 1 G in NS 100 ML IV + SPIKE MINIBAG* 100 ML IV SCH (08:21)
[2018-07-19] MEDS: COLACE CAP 100 MG PO SCH ×2 (08:23→21:44)
--- NOTE | 2018-07-19 08:42 | PCM.PROG ---
Progress Note - Progress Note for Day of Date of Exam: 07/19/18 - Subjective Subjective: 77WM ADMITTED ON 07/18 WITH ACUTE RENAL FAILURE, HYPERKALEMIA AND MRSA + ABSCESS TO SCALP. PT WAS STARTED ON IV ATBX, WOUND CARE SURGICAL CONSULT FOR I &D. PT BUN 45 CREAT 1.85, K+5.1. URINE POSITIVE FOR NITRITES, URINE CULTURE PENDING. IVF AT [facility], ENCOURAGED ORAL HYDRATION. - Past Medical Family Social History Past Med/Fam/Surg Hx: No changes since H&P Allergies: Allergies penicillin G Adverse Reaction (Verified 02/28/18 15:00) - Review of Systems ROS: No change since H&P - Vital Signs and I&O's Vital Signs: Temperature 98.2 F Pulse Rate [Right Brachial] 54 Pulse Rate 62 Respiratory Rate 20 Blood Pressure [Left Arm] 145/62 Blood Pressure [Right Arm] 138/64 Blood Pressure 123/58 O2 Sat by Pulse Oximetry 96 Intake and Output: Intake & Output 07/16/18 07/17/18 07/18/18 07/19/18 11:59 11:59 11:59 11:59 Intake Total 1630 / 1630 Output Total 975 / 975 Balance 655 / 655 - Physical Exam Oriented: Normal Eyes: Normal Ear: Normal Nose: Normal Throat: Normal Respiratory: Diminished, Rhonchi Cardiovascular: Normal. negative: Murmur : Normal Auscultation: Bowel Sounds: Normal, Absent Tenderness: Normal Skin: Tender, Wound Musculoskeletal: Motor Deficit, Sensory Deficit Psychiatric: Depression Affect: Anxious Speech Pattern: Clear, Appropriate - Laboratory and Diagnostics Result Diagrams: 07/19/18 05:03 07/19/18 05:03 Labs: Laboratory WBC 10.7 X10^3/uL (3.6-10.0) H 07/19/18 05:03 RBC 3.02 X10^6/uL (4.7-6.0) L 07/19/18 05:03 Hgb 8.3 g/dL (13.5-18.0) L 07/19/18 05:03 Hct 25.5 % (42.0-54.0) L 07/19/18 05:03 MCV 84.3 fL (80.0-100.0) 07/19/18 05:03 MCH 27.6 pg (27.0-34.0) 07/19/18 05:03 MCHC 32.7 g/dL (33.0-35.0) L 07/19/18 05:03 RDW 16.5 % (11.6-16.5) 07/19/18 05:03 Plt Count 289 X10^3/uL (150.0-450.0) 07/19/18 05:03 MPV 7.7 fL (7.4-11.0) 07/19/18 05:03 Neut % (Auto) 69.1 % (42.0-75.0) 07/19/18 05:03 Lymph % (Auto) 16.3 % (21.0-51.0) L 07/19/18 05:03 [place] % (Auto) 8.0 % (0.0-13.0) 07/19/18 05:03 Eos % (Auto) 5.9 % (0.9-2.9) H 07/19/18 05:03 Baso % (Auto) 0.7 % (0.2-1.0) 07/19/18 05:03 Neut # (Auto) 7.4 x10^3/uL (2.2-4.8) H 07/19/18 05:03 Lymph # (Auto) 1.7 X10^3/uL (1.3-2.9) 07/19/18 05:03 [place] # (Auto) 0.9 x10^3/uL (0.3-0.8) H 07/19/18 05:03 Eos # (Auto) 0.6 x10^3/uL (0.0-0.2) H 07/19/18 05:03 Baso # (Auto) 0.1 X10^3/uL (0.0-0.1) 07/19/18 05:03 Absolute Nucleated RBC 0.0 /100WBC 07/19/18 05:03 Sodium 137 mmol/L (136-145) 07/19/18 05:03 Corrected Sodium TNP 07/19/18 05:03 Potassium 5.1 mmol/L (3.5-5.1) 07/19/18 05:03 Chloride 101 mmol/L (98-107) 07/19/18 05:03 Carbon Dioxide 35.0 mmol/L (21-32) H 07/19/18 05:03 BUN 45 mg/dL (7-18) H 07/19/18 05:03 Creatinine 1.85 mg/dL (0.70-1.30) H 07/19/18 05:03 Est GFR (MDRD) Af Amer 46 (>60) L 07/19/18 05:03 Est GFR (MDRD) Non-Af 38 (>60) L 07/19/18 05:03 Glucose 83 mg/dL (65-99) 07/19/18 05:03 Calcium 8.4 mg/dL (8.5-10.1) L 07/19/18 05:03 Corrected Calcium 9.4 mg/dL (8.5-10.1) 07/19/18 05:03 Total Bilirubin 0.30 mg/dL (0.2-1.0) 07/19/18 05:03 AST 15 Units/L (15-37) 07/19/18 05:03 ALT 13 Units/L (12-78) 07/19/18 05:03 Alkaline Phosphatase 48 Units/L (46-116) 07/19/18 05:03 Total Protein 6.5 g/dL (6.4-8.2) 07/19/18 05:03 Albumin 2.8 g/dL (3.4-5.0) L 07/19/18 05:03 Globulin 3.7 g/dL (2.5-4.5) 07/19/18 05:03 Albumin/Globulin Ratio 0.8 Ratio (1.1-2.1) L 07/19/18 05:03 Specimen Type Catherized urine 07/19/18 01:25 Urine Color Yellow (YELLOW) 07/19/18 01:25 Urine Appearance Clear (CLEAR) 07/19/18 01:25 Urine pH 6.0 (5.0 - 8.0) 07/19/18 01:25 Ur Specific [place] 1.010 (1.000-1.030) 07/19/18 01:25 Urine Protein Negative (NEGATIVE) 07/19/18 01:25 Urine Glucose (UA) Negative (NEGATIVE) 07/19/18 01:25 Urine Ketones Negative (NEGATIVE) 07/19/18 01:25 Urine Occult Blood Negative (NEGATIVE) 07/19/18 01:25 Urine Nitrite Positive (NEGATIVE) 07/19/18 01:25 Urine Bilirubin Negative (NEGATIVE) 07/19/18 01:25 Urine Urobilinogen Normal (NORMAL) 07/19/18 01:25 Ur Leukocyte Esterase 2+ (NEGATIVE) 07/19/18 01:25 Urine RBC None seen /HPF (NONE SEEN) 07/19/18 01:25 Urine WBC 20-30 /HPF (NONE SEEN) 07/19/18 01:25 Ur Squamous Epith Cells Rare /HPF (NEGATIVE) 07/19/18 01:25 Urine Bacteria 3+ /HPF (NEGATIVE) 07/19/18 01:25 Ur Culture Indicated? Yes/culture set up 07/19/18 01:25 - Plan (1) Acute on chronic renal failure Status: Acute Plan: REPEAT AM CBC CMP UA CXR EKG. GENTLE HYDRATION, MONITOR I & OS. BP MONITORING, RESP CONSULTATION TO RESUME HOME RESP REGIMEN. WOUND CONSULTATION (2) Scalp abscess Status: Acute (3) Hyperkalemia Status: Acute (4) Adult failure to thrive Status: Acute (5) CHF (congestive heart failure) Status: Chronic Qualifiers: Qualified Code(s): I50.43 - Acute on chronic combined systolic (congestive) and diastolic (congestive) heart failure (6) COPD (chronic obstructive pulmonary disease) Status: Chronic (7) Hypertension Status: Chronic Qualifiers: Hypertension type: essential hypertension Qualified Code(s): I10 - Essential (primary) hypertension (8) Arthritis Status: Chronic (9) Depression Status: Chronic
[2018-07-19] MEDS ORDERED: BACTROBAN TOPICAL OINT TOP SCH (09:00)
[2018-07-19] MEDS: VANCOMYCIN HCL 1 GM VIAL 1 G in D5W 250 ML IV 250 ML IV SCH (10:00)
[2018-07-19] MEDS: MYLICON TAB 80 MG CHEW PO PRN ×2 (15:29→23:44)
[2018-07-20] MEDS ORDERED: MAALOX or MYLANTA PO PRN (04:30)
[2018-07-20] MEDS: DUONEB 0.5 MG/3 MG NEB SCH ×3 (05:08→16:52)
[2018-07-20 06:02] LABS: BASOPHILS # (AUTO) 0.1 X10^3/uL (0.0-0.1); BASOPHILS % (AUTO) 0.5 % (0.2-1.0); HEMATOCRIT 25.3 % (42.0-54.0); HEMOGLOBIN 8.1 g/dL (13.5-18.0); LYMPHOCYTES # (AUTO) 1.3 X10^3/uL (1.3-2.9); LYMPHOCYTES % (AUTO) 11.6 % (21.0-51.0); MEAN CORPUSCULAR HEMOGLOBIN 27.2 pg (27.0-34.0); MEAN CORPUSCULAR VOLUME 84.9 fL (80.0-100.0); MEAN PLATELET VOLUME 7.8 fL (7.4-11.0); MONOCYTES # (AUTO) 0.9 x10^3/uL (0.3-0.8); MONOCYTES % (AUTO) 8.5 % (0.0-13.0); NEUTROPHILS # (AUTO) 7.8 x10^3/uL (2.2-4.8); NEUTROPHILS % (AUTO) 70.4 % (42.0-75.0); PLATELET COUNT 291 X10^3/uL (150.0-450.0); RED BLOOD COUNT 2.97 X10^6/uL (4.7-6.0); RED CELL DISTRIBUTION WIDTH 16.5 % (11.6-16.5)
[2018-07-20 06:06] LABS: ALANINE AMINOTRANSFERASE 12 Units/L (12-78); ALBUMIN 2.6 g/dL (3.4-5.0); ALKALINE PHOSPHATASE 50 Units/L (46-116); ASPARTATE AMINO TRANSFERASE 12 Units/L (15-37); BLOOD UREA NITROGEN 31 mg/dL (7-18); CALCIUM 8.4 mg/dL (8.5-10.1); CARBON DIOXIDE 33.5 mmol/L (21-32); CHLORIDE 104 mmol/L (98-107); COR CA(FOR HYPOALB) 9.5 mg/dL (8.5-10.1); COR NA(FOR HYPERGLY) 141 mmol/L (136-145); CREATININE 1.37 mg/dL (0.70-1.30); SODIUM 140 mmol/L (136-145); TOTAL PROTEIN 6.1 g/dL (6.4-8.2); eGFR NON BLACK RACES 54 (>60)
[2018-07-20] MEDS: BACTROBAN TOPICAL OINT TOP SCH ×3 (06:07→23:53)
[2018-07-20] MEDS: NS 1000 ML 1,000 ML IV SCH ×3 (07:32→17:15)
[2018-07-20] MEDS: FORTAZ or TAZICEF VIAL INJ 1 G in NS 100 ML IV + SPIKE MINIBAG* 100 ML IV SCH ×2 (07:56→09:28)
--- NOTE | 2018-07-20 08:37 | PCM.PROG ---
Progress Note - Progress Note for Day of Date of Exam: 07/20/18 - Subjective Subjective: 77WM ADMITTED ON 07/18 WITH ACUTE RENAL FAILURE, HYPERKALEMIA AND MRSA + ABSCESS TO SCALP. PT WAS STARTED ON IV ATBX, WOUND CARE SURGICAL CONSULT FOR I &D. PT BUN 31 CREAT 1.37, K+4.8. URINE POSITIVE FOR NITRITES, URINE CULTURE PENDING. IVF AT [facility], ENCOURAGED ORAL HYDRATION. DR HEATH CONSULTING. PLAN TO CONTINUE IV ATBX - Past Medical Family Social History Past Med/Fam/Surg Hx: No changes since H&P Allergies: Allergies penicillin G Adverse Reaction (Verified 02/28/18 15:00) - Review of Systems ROS: No change since H&P - Vital Signs and I&O's Vital Signs: Temperature 98.0 F Pulse Rate [Right Brachial] 60 Pulse Rate 63 Respiratory Rate 18 Blood Pressure [Left Arm] 137/65 Blood Pressure [Right Arm] 158/70 Blood Pressure 123/58 O2 Sat by Pulse Oximetry 96 Intake and Output: Intake & Output 07/17/18 07/18/18 07/19/18 07/20/18 11:59 11:59 11:59 11:59 Intake Total 1630 / 1630 1707 / 1707 Output Total 975 / 975 Balance 655 / 655 1707 / 1707 - Physical Exam Oriented: Normal Eyes: Normal Ear: Normal Nose: Normal Throat: Normal Respiratory: Diminished, Rhonchi Cardiovascular: Normal. negative: Murmur : Normal Auscultation: Bowel Sounds: Normal, Absent Tenderness: Normal Skin: Tender, Wound (POSTERIOR SCALP ) Musculoskeletal: Motor Deficit, Sensory Deficit Psychiatric: Depression Affect: Anxious Speech Pattern: Clear - Laboratory and Diagnostics Result Diagrams: 07/20/18 04:45 07/20/18 04:45 Labs: Laboratory WBC 11.0 X10^3/uL (3.6-10.0) H 07/20/18 04:45 RBC 2.97 X10^6/uL (4.7-6.0) L 07/20/18 04:45 Hgb 8.1 g/dL (13.5-18.0) L 07/20/18 04:45 Hct 25.3 % (42.0-54.0) L 07/20/18 04:45 MCV 84.9 fL (80.0-100.0) 07/20/18 04:45 MCH 27.2 pg (27.0-34.0) 07/20/18 04:45 MCHC 32.0 g/dL (33.0-35.0) L 07/20/18 04:45 RDW 16.5 % (11.6-16.5) 07/20/18 04:45 Plt Count 291 X10^3/uL (150.0-450.0) 07/20/18 04:45 MPV 7.8 fL (7.4-11.0) 07/20/18 04:45 Neut % (Auto) 70.4 % (42.0-75.0) 07/20/18 04:45 Lymph % (Auto) 11.6 % (21.0-51.0) L 07/20/18 04:45 Long % (Auto) 8.5 % (0.0-13.0) 07/20/18 04:45 Eos % (Auto) 9.0 % (0.9-2.9) H 07/20/18 04:45 Baso % (Auto) 0.5 % (0.2-1.0) 07/20/18 04:45 Neut # (Auto) 7.8 x10^3/uL (2.2-4.8) H 07/20/18 04:45 Lymph # (Auto) 1.3 X10^3/uL (1.3-2.9) 07/20/18 04:45 Long # (Auto) 0.9 x10^3/uL (0.3-0.8) H 07/20/18 04:45 Eos # (Auto) 1.0 x10^3/uL (0.0-0.2) H 07/20/18 04:45 Baso # (Auto) 0.1 X10^3/uL (0.0-0.1) 07/20/18 04:45 Absolute Nucleated RBC 0.0 /100WBC 07/20/18 04:45 Sodium 140 mmol/L (136-145) 07/20/18 04:45 Corrected Sodium 141 mmol/L (136-145) 07/20/18 04:45 Potassium 4.8 mmol/L (3.5-5.1) 07/20/18 04:45 Chloride 104 mmol/L (98-107) 07/20/18 04:45 Carbon Dioxide 33.5 mmol/L (21-32) H 07/20/18 04:45 BUN 31 mg/dL (7-18) H 07/20/18 04:45 Creatinine 1.37 mg/dL (0.70-1.30) H 07/20/18 04:45 Est GFR (MDRD) Af Amer > 60 (>60) 07/20/18 04:45 Est GFR (MDRD) Non-Af 54 (>60) L 07/20/18 04:45 Glucose 129 mg/dL (65-99) H 07/20/18 04:45 Calcium 8.4 mg/dL (8.5-10.1) L 07/20/18 04:45 Corrected Calcium 9.5 mg/dL (8.5-10.1) 07/20/18 04:45 Total Bilirubin 0.20 mg/dL (0.2-1.0) 07/20/18 04:45 AST 12 Units/L (15-37) L 07/20/18 04:45 ALT 12 Units/L (12-78) 07/20/18 04:45 Alkaline Phosphatase 50 Units/L (46-116) 07/20/18 04:45 Total Protein 6.1 g/dL (6.4-8.2) L 07/20/18 04:45 Albumin 2.6 g/dL (3.4-5.0) L 07/20/18 04:45 Globulin 3.5 g/dL (2.5-4.5) 07/20/18 04:45 Albumin/Globulin Ratio 0.7 Ratio (1.1-2.1) L 07/20/18 04:45 Specimen Type Catherized urine 07/19/18 01:25 Urine Color Yellow (YELLOW) 07/19/18 01:25 Urine Appearance Clear (CLEAR) 07/19/18 01:25 Urine pH 6.0 (5.0 - 8.0) 07/19/18 01:25 Ur Specific [place] 1.010 (1.000-1.030) 07/19/18 01:25 Urine Protein Negative (NEGATIVE) 07/19/18 01:25 Urine Glucose (UA) Negative (NEGATIVE) 07/19/18 01:25 Urine Ketones Negative (NEGATIVE) 07/19/18 01:25 Urine Occult Blood Negative (NEGATIVE) 07/19/18 01:25 Urine Nitrite Positive (NEGATIVE) 07/19/18 01:25 Urine Bilirubin Negative (NEGATIVE) 07/19/18 01:25 Urine Urobilinogen Normal (NORMAL) 07/19/18 01:25 Ur Leukocyte Esterase 2+ (NEGATIVE) 07/19/18 01:25 Urine RBC None seen /HPF (NONE SEEN) 07/19/18 01:25 Urine WBC 20-30 /HPF (NONE SEEN) 07/19/18 01:25 Ur Squamous Epith Cells Rare /HPF (NEGATIVE) 07/19/18 01:25 Urine Bacteria 3+ /HPF (NEGATIVE) 07/19/18 01:25 Ur Culture Indicated? Yes/culture set up 07/19/18 01:25 - Plan (1) Acute on chronic renal failure Status: Acute Plan: REPEAT AM CBC CMP UA CXR EKG. GENTLE HYDRATION, MONITOR I & OS. BP MONITORING, RESP CONSULTATION TO RESUME HOME RESP REGIMEN. WOUND CONSULTATION. LASIX 20MG IV X1 DOSE (2) Scalp abscess Status: Acute (3) Hyperkalemia Status: Acute (4) Adult failure to thrive Status: Acute (5) CHF (congestive heart failure) Status: Chronic Qualifiers: Qualified Code(s): I50.43 - Acute on chronic combined systolic (congestive) and diastolic (congestive) heart failure (6) COPD (chronic obstructive pulmonary disease) Status: Chronic (7) Hypertension Status: Chronic Qualifiers: Hypertension type: essential hypertension Qualified Code(s): I10 - E ssential (primary) hypertension (8) Arthritis Status: Chronic (9) Depression Status: Chronic (10) UTI (urinary tract infection) Status: Acute Plan: URINE CULTURE PENDING
[2018-07-20] MEDS: PROVENTIL NEB TX 0.083% 2.5MG/ 3ML NEB PRN ×2 (08:44→21:53)
[2018-07-20] MEDS ORDERED: LASIX IVP SCH (09:00)
[2018-07-20 09:01] LABS: CREATININE 1.14 mg/dL (0.70-1.30)
[2018-07-20] MEDS ORDERED: LR 1000 ML IV 1,000 ML IV ONE (09:20)
--- NOTE | 2018-07-20 09:22 | RAD ---
HISTORY: Congestive heart failure. Chest congestion. Previous history of lung cancer. Study: AP portable chest Comparison: 07/18/2018 Findings: Mild chronic interstitial scarring is noted. There is focal prominence of the interstitial markings predominating in the right upper lobe, unchanged. This could be due to radiation change or prior kirit sonal, however, I do not clearly see findings of a thoracotomy. This appears to be similar to a CT sc an performed 02/11/2015. The heart size is normal. Mild tortuosity aorta is noted. Remote rib frac tures are noted IMPRESSION: 1. Findings of chronic interstitial fibrosis. 2. There are focal linear opacities in the right upper lobe, possibly due to scarring from prior rad iation or surgery. The patient reports a history of previous right-sided lung cancer. Clinical kimani elation recommended. 3. No radiographic evidence of acute cardiopulmonary disease or significant change is noted when com pared to the prior examination. Reported By:
[2018-07-20] MEDS: VANCOMYCIN HCL 1 GM VIAL 1 G in D5W 250 ML IV 250 ML IV SCH ×2 (09:27→11:11)
[2018-07-20] MEDS: COLACE CAP 100 MG PO SCH ×3 (09:27→21:03)
[2018-07-20] MEDS ORDERED: XYLOCAINE 1 % (PLAIN) ONE (10:25)
--- NOTE | 2018-07-20 10:58 | OR.GENERIC ---
Post-Op Note Generic - Post-Op Note Operative Report: multiple skin Bxs were obtained from large scalp ulcer .there was some purulent drainage underneath which was cultured and packed pt did well ...we used 6 cc of 1% xylocaine with . will continue IV ATB pending final culture ..
[2018-07-20] MEDS: NORCO 10/325 TAB PO PRN ×3 (11:13→19:02)
[2018-07-20] MEDS ORDERED: VERSED ONE (13:34)
[2018-07-20] MEDS ORDERED: DIPRIVAN VIAL ONE (13:34)
[2018-07-20] MEDS: PROTONIX INJ 40 MG VIAL IVP SCH (14:42)
[2018-07-20] MEDS: LEVSIN/MAALOX/LIDOC VISC PO SCH ×2 (17:06→21:03)
[2018-07-21] MEDS: DUONEB 0.5 MG/3 MG NEB SCH ×6 (01:05→17:58)
[2018-07-21] MEDS: NORCO 10/325 TAB PO PRN ×5 (03:59→20:43)
[2018-07-21] MEDS: BACTROBAN TOPICAL OINT TOP SCH (05:36)
[2018-07-21 06:02] LABS: BASOPHILS # (AUTO) 0.1 X10^3/uL (0.0-0.1); BASOPHILS % (AUTO) 0.8 % (0.2-1.0); EOSINOPHILS # (AUTO) 0.9 x10^3/uL (0.0-0.2); EOSINOPHILS % (AUTO) 9.9 % (0.9-2.9); HEMATOCRIT 24.7 % (42.0-54.0); HEMOGLOBIN 8.1 g/dL (13.5-18.0); LYMPHOCYTES # (AUTO) 1.3 X10^3/uL (1.3-2.9); LYMPHOCYTES % (AUTO) 13.7 % (21.0-51.0); MEAN CORPUSCULAR HEMOGLOBIN 27.5 pg (27.0-34.0); MEAN CORPUSCULAR HGB CONC 32.7 g/dL (33.0-35.0); MONOCYTES # (AUTO) 1.1 x10^3/uL (0.3-0.8); MONOCYTES % (AUTO) 11.6 % (0.0-13.0); NEUTROPHILS # (AUTO) 5.9 x10^3/uL (2.2-4.8); PLATELET COUNT 284 X10^3/uL (150.0-450.0); RED BLOOD COUNT 2.94 X10^6/uL (4.7-6.0); RED CELL DISTRIBUTION WIDTH 16.6 % (11.6-16.5); WHITE BLOOD COUNT 9.2 X10^3/uL (3.6-10.0)
[2018-07-21 06:11] LABS: ALANINE AMINOTRANSFERASE 13 Units/L (12-78); ALBUMIN 2.7 g/dL (3.4-5.0); ALKALINE PHOSPHATASE 46 Units/L (46-116); ASPARTATE AMINO TRANSFERASE 14 Units/L (15-37); BLOOD UREA NITROGEN 26 mg/dL (7-18); CALCIUM 8.5 mg/dL (8.5-10.1); CARBON DIOXIDE 34.3 mmol/L (21-32); CHLORIDE 103 mmol/L (98-107); COR CA(FOR HYPOALB) 9.5 mg/dL (8.5-10.1); CREATININE 1.11 mg/dL (0.70-1.30); SODIUM 139 mmol/L (136-145); TOTAL PROTEIN 6.3 g/dL (6.4-8.2); eGFR NON BLACK RACES > 60 (>60)
[2018-07-21] MEDS: VANCOMYCIN HCL 1 GM VIAL 1 G in D5W 250 ML IV 250 ML IV SCH (08:45)
[2018-07-21] MEDS: FORTAZ or TAZICEF VIAL INJ 1 G in NS 100 ML IV + SPIKE MINIBAG* 100 ML IV SCH (08:45)
[2018-07-21] MEDS: PROTONIX INJ 40 MG VIAL IVP SCH (08:45)
[2018-07-21] MEDS: COLACE CAP 100 MG PO SCH ×2 (08:45→20:42)
[2018-07-21] MEDS: LEVSIN/MAALOX/LIDOC VISC PO SCH ×3 (08:46→16:50)
[2018-07-21] MEDS: PROVENTIL NEB TX 0.083% 2.5MG/ 3ML NEB PRN ×3 (09:10→22:25)
[2018-07-21] MEDS: LOVENOX INJ 40 MG SYR SC SCH (10:26)
--- NOTE | 2018-07-21 12:41 | PCM.PROG ---
Progress Note - Progress Note for Day of Date of Exam: 07/21/18 - Subjective Subjective: 77WM ADMITTED ON 07/18 WITH ACUTE RENAL FAILURE, HYPERKALEMIA AND MRSA + ABSCESS TO SCALP. PT K 5, WBC 8.1 CREAT 1.11. IVF AT [facility], ENCOURAGED ORAL. DR HEATH CONSULTED-multiple skin Bxs were obtained from large scalp ulcer .there was some purulent drainage underneath which was. cultured and packed. - Past Medical Family Social History Past Med/Fam/Surg Hx: No changes since H&P Allergies: Allergies penicillin G Adverse Reaction (Verified 02/28/18 15:00) - Review of Systems ROS: No change since H&P - Vital Signs and I&O's Vital Signs: Temperature 98.1 F Pulse Rate [Right Brachial] 59 Pulse Rate 58 Respiratory Rate 18 Blood Pressure [Left Arm] 121/56 Blood Pressure [Right Arm] 161/70 Blood Pressure 123/58 O2 Sat by Pulse Oximetry 98 Intake and Output: Intake & Output 07/19/18 07/20/18 07/21/18 07/22/18 11:59 11:59 11:59 11:59 Intake Total 1630 / 1630 1857 / 1857 2320 / 2320 Output Total 975 / 975 Balance 655 / 655 185 / 185 2320 / 2320 - Physical Exam Oriented: Normal Eyes: Normal Ear: Normal Nose: Normal Throat: Normal Respiratory: Diminished, Rhonchi Cardiovascular: Normal. negative: Murmur : Normal Auscultation: Bowel Sounds: Normal, Absent Tenderness: Normal Skin: Tender, Wound (POSTERIOR SCALP ) Musculoskeletal: Motor Deficit, Sensory Deficit Psychiatric: Depression Affect: Anxious Speech Pattern: Clear - Laboratory and Diagnostics Result Diagrams: 07/21/18 05:08 07/21/18 05:08 Labs: 07/20/18 10:42 Head Wound Culture - Preliminary 07/19/18 01:25 Urine,Catheterized Urine Culture - Final Escherichia Coli Laboratory WBC 9.2 X10^3/uL (3.6-10.0) 07/21/18 05:08 RBC 2.94 X10^6/uL (4.7-6.0) L 07/21/18 05:08 Hgb 8.1 g/dL (13.5-18.0) L 07/21/18 05:08 Hct 24.7 % (42.0-54.0) L 07/21/18 05:08 MCV 84.0 fL (80.0-100.0) 07/21/18 05:08 MCH 27.5 pg (27.0-34.0) 07/21/18 05:08 MCHC 32.7 g/dL (33.0-35.0) L 07/21/18 05:08 RDW 16.6 % (11.6-16.5) H 07/21/18 05:08 Plt Count 284 X10^3/uL (150.0-450.0) 07/21/18 05:08 MPV 8.0 fL (7.4-11.0) 07/21/18 05:08 Neut % (Auto) 64.0 % (42.0-75.0) 07/21/18 05:08 Lymph % (Auto) 13.7 % (21.0-51.0) L 07/21/18 05:08 [place] % (Auto) 11.6 % (0.0-13.0) 07/21/18 05:08 Eos % (Auto) 9.9 % (0.9-2.9) H 07/21/18 05:08 Baso % (Auto) 0.8 % (0.2-1.0) 07/21/18 05:08 Neut # (Auto) 5.9 x10^3/uL (2.2-4.8) H 07/21/18 05:08 Lymph # (Auto) 1.3 X10^3/uL (1.3-2.9) 07/21/18 05:08 [place] # (Auto) 1.1 x10^3/uL (0.3-0.8) H 07/21/18 05:08 Eos # (Auto) 0.9 x10^3/uL (0.0-0.2) H 07/21/18 05:08 Baso # (Auto) 0.1 X10^3/uL (0.0-0.1) 07/21/18 05:08 Absolute Nucleated RBC 0.0 /100WBC 07/21/18 05:08 Sodium 139 mmol/L (136-145) 07/21/18 05:08 Corrected Sodium TNP 07/21/18 05:08 Potassium 5.0 mmol/L (3.5-5.1) 07/21/18 05:08 Chloride 103 mmol/L (98-107) 07/21/18 05:08 Carbon Dioxide 34.3 mmol/L (21-32) H 07/21/18 05:08 BUN 26 mg/dL (7-18) H 07/21/18 05:08 Creatinine 1.11 mg/dL (0.70-1.30) 07/21/18 05:08 Est GFR (MDRD) Af Amer > 60 (>60) 07/21/18 05:08 Est GFR (MDRD) Non-Af > 60 (>60) 07/21/18 05:08 Glucose 100 mg/dL (65-99) H 07/21/18 05:08 Calcium 8.5 mg/dL (8.5-10.1) 07/21/18 05:08 Corrected Calcium 9.5 mg/dL (8.5-10.1) 07/21/18 05:08 Total Bilirubin 0.20 mg/dL (0.2-1.0) 07/21/18 05:08 AST 14 Units/L (15-37) L 07/21/18 05:08 ALT 13 Units/L (12-78) 07/21/18 05:08 Alkaline Phosphatase 46 Units/L (46-116) 07/21/18 05:08 Total Protein 6.3 g/dL (6.4-8.2) L 07/21/18 05:08 Albumin 2.7 g/dL (3.4-5.0) L 07/21/18 05:08 Globulin 3.6 g/dL (2.5-4.5) 07/21/18 05:08 Albumin/Globulin Ratio 0.8 Ratio (1.1-2.1) L 07/21/18 05:08 Specimen Type Catherized urine 07/19/18 01:25 Urine Color Yellow (YELLOW) 07/19/18 01:25 Urine Appearance Clear (CLEAR) 07/19/18 01:25 Urine pH 6.0 (5.0 - 8.0) 07/19/18 01:25 Ur Specific [place] 1.010 (1.000-1.030) 07/19/18 01:25 Urine Protein Negative (NEGATIVE) 07/19/18 01:25 Urine Glucose (UA) Negative (NEGATIVE) 07/19/18 01:25 Urine Ketones Negative (NEGATIVE) 07/19/18 01:25 Urine Occult Blood Negative (NEGATIVE) 07/19/18 01:25 Urine Nitrite Positive (NEGATIVE) 07/19/18 01:25 Urine Bilirubin Negative (NEGATIVE) 07/19/18 01:25 Urine Urobilinogen Normal (NORMAL) 07/19/18 01:25 Ur Leukocyte Esterase 2+ (NEGATIVE) 07/19/18 01:25 Urine RBC None seen /HPF (NONE SEEN) 07/19/18 01:25 Urine WBC 20-30 /HPF (NONE SEEN) 07/19/18 01:25 Ur Squamous Epith Cells Rare /HPF (NEGATIVE) 07/19/18 01:25 Urine Bacteria 3+ /HPF (NEGATIVE) 07/19/18 01:25 Ur Culture Indicated? Yes/culture set up 07/19/18 01:25 Vancomycin Trough 11.0 ug/mL (15-20) L 07/20/18 08:10 Tissue Pathology To follow 07/20/18 10:42 - Plan (1) Acute on chronic renal failure Status: Acute Plan: REPEAT AM CBC CMP UA ON ADMISSION. GENTLE HYDRATION, MONITOR I & OS. BP MONITORING, CONTINUE WOUND CARE, BIOPSY PENDING (2) Scalp abscess Status: Acute (3) Hyperkalemia Status: Acute (4) Adult failure to thrive Status: Acute (5) CHF (congestive heart failure) Status: Chronic Qualifiers: Qualified Code(s): I50.43 - Acute on chronic combined systolic (congestive) and diastolic (congestive) heart failure (6) COPD (chronic obstructive pulmonary disease) Status: Chronic (7) Hypertension Status: Chronic Qualifiers: Hypertension type: essential hypertension Qualified Code(s): I10 - Essential (primary) hypertension (8) Arthritis Status: Chronic (9) Depression Status: Chronic (10) UTI (urinary tract infection) Status: Acute Plan: URINE CULTURE PENDING
[2018-07-21] MEDS ORDERED: ZOFRAN INJ 4 MG VIAL IVP PRN (17:39)
[2018-07-21] MEDS ORDERED: PHARMACY COMMENT IV NR (20:30)
[2018-07-21 21:18] LABS: CREATININE 1.03 mg/dL (0.70-1.30); VANCOMYCIN,TROUGH 18.3 ug/mL (15-20)
[2018-07-22] MEDS: DUONEB 0.5 MG/3 MG NEB SCH ×4 (00:38→17:01)
[2018-07-22] MEDS: LEVSIN/MAALOX/LIDOC VISC PO SCH ×5 (00:47→20:39)
[2018-07-22 05:38] LABS: BASOPHILS # (AUTO) 0.1 X10^3/uL (0.0-0.1); BASOPHILS % (AUTO) 0.9 % (0.2-1.0); EOSINOPHILS # (AUTO) 0.8 x10^3/uL (0.0-0.2); EOSINOPHILS % (AUTO) 10.4 % (0.9-2.9); HEMATOCRIT 22.9 % (42.0-54.0); HEMOGLOBIN 7.5 g/dL (13.5-18.0); LYMPHOCYTES # (AUTO) 1.3 X10^3/uL (1.3-2.9); LYMPHOCYTES % (AUTO) 16.2 % (21.0-51.0); MEAN CORPUSCULAR HEMOGLOBIN 27.6 pg (27.0-34.0); MEAN CORPUSCULAR HGB CONC 32.7 g/dL (33.0-35.0); MEAN CORPUSCULAR VOLUME 84.4 fL (80.0-100.0); MEAN PLATELET VOLUME 8.2 fL (7.4-11.0); MONOCYTES # (AUTO) 0.8 x10^3/uL (0.3-0.8); MONOCYTES % (AUTO) 10.9 % (0.0-13.0); NEUTROPHILS # (AUTO) 4.8 x10^3/uL (2.2-4.8); NEUTROPHILS % (AUTO) 61.6 % (42.0-75.0); PLATELET COUNT 259 X10^3/uL (150.0-450.0); RED BLOOD COUNT 2.72 X10^6/uL (4.7-6.0); RED CELL DISTRIBUTION WIDTH 16.5 % (11.6-16.5); WHITE BLOOD COUNT 7.8 X10^3/uL (3.6-10.0)
[2018-07-22 05:48] LABS: ALANINE AMINOTRANSFERASE 11 Units/L (12-78); ALBUMIN 2.4 g/dL (3.4-5.0); ALKALINE PHOSPHATASE 43 Units/L (46-116); ASPARTATE AMINO TRANSFERASE 13 Units/L (15-37); BLOOD UREA NITROGEN 24 mg/dL (7-18); CALCIUM 8.3 mg/dL (8.5-10.1); CARBON DIOXIDE 35.6 mmol/L (21-32); CHLORIDE 105 mmol/L (98-107); COR CA(FOR HYPOALB) 9.6 mg/dL (8.5-10.1); CREATININE 0.98 mg/dL (0.70-1.30); SODIUM 141 mmol/L (136-145); TOTAL PROTEIN 5.7 g/dL (6.4-8.2); eGFR NON BLACK RACES > 60 (>60)
[2018-07-22 06:33] LABS: PLATELET MORPHOLOGY COMMENT NORMAL (NORMAL)
[2018-07-22] MEDS: NORCO 10/325 TAB PO PRN ×2 (07:21→19:24)
[2018-07-22] MEDS: NS 1000 ML 1,000 ML IV SCH ×3 (07:29→14:51)
[2018-07-22] MEDS: FORTAZ or TAZICEF VIAL INJ 1 G in NS 100 ML IV + SPIKE MINIBAG* 100 ML IV SCH (08:59)
[2018-07-22] MEDS: VANCOMYCIN HCL 1 GM VIAL 1 G in D5W 250 ML IV 250 ML IV SCH (08:59)
[2018-07-22] MEDS: COLACE CAP 100 MG PO SCH ×2 (09:00→20:37)
[2018-07-22] MEDS: LOVENOX INJ 40 MG SYR SC SCH (09:00)
[2018-07-22] MEDS: PROTONIX INJ 40 MG VIAL IVP SCH (09:00)
[2018-07-22] MEDS: PROVENTIL NEB TX 0.083% 2.5MG/ 3ML NEB PRN ×2 (14:14→19:37)
[2018-07-22] MEDS: TUSSIONEX PENNKINETIC SUSP PO PRN (22:59)
[2018-07-23] MEDS: DUONEB 0.5 MG/3 MG NEB SCH ×4 (00:28→17:20)
[2018-07-23] MEDS: NORCO 10/325 TAB PO PRN ×2 (04:30→20:02)
[2018-07-23 05:35] LABS: ALANINE AMINOTRANSFERASE 12 Units/L (12-78); ALBUMIN 2.6 g/dL (3.4-5.0); ALKALINE PHOSPHATASE 46 Units/L (46-116); ASPARTATE AMINO TRANSFERASE 14 Units/L (15-37); BASOPHILS # (AUTO) 0.1 X10^3/uL (0.0-0.1); BASOPHILS % (AUTO) 0.8 % (0.2-1.0); BLOOD UREA NITROGEN 19 mg/dL (7-18); CALCIUM 8.6 mg/dL (8.5-10.1); CARBON DIOXIDE 36.5 mmol/L (21-32); CHLORIDE 104 mmol/L (98-107); COR CA(FOR HYPOALB) 9.7 mg/dL (8.5-10.1); CREATININE 0.97 mg/dL (0.70-1.30); EOSINOPHILS % (AUTO) 10.2 % (0.9-2.9); HEMATOCRIT 23.4 % (42.0-54.0); HEMOGLOBIN 7.5 g/dL (13.5-18.0); LYMPHOCYTES # (AUTO) 1.3 X10^3/uL (1.3-2.9); LYMPHOCYTES % (AUTO) 13.9 % (21.0-51.0); MEAN CORPUSCULAR HEMOGLOBIN 27.2 pg (27.0-34.0); MEAN CORPUSCULAR HGB CONC 32.2 g/dL (33.0-35.0); MEAN CORPUSCULAR VOLUME 84.4 fL (80.0-100.0); MEAN PLATELET VOLUME 8.1 fL (7.4-11.0); MONOCYTES # (AUTO) 1.1 x10^3/uL (0.3-0.8); MONOCYTES % (AUTO) 11.8 % (0.0-13.0); NEUTROPHILS % (AUTO) 63.3 % (42.0-75.0); PLATELET COUNT 267 X10^3/uL (150.0-450.0); RED BLOOD COUNT 2.78 X10^6/uL (4.7-6.0); RED CELL DISTRIBUTION WIDTH 16.3 % (11.6-16.5); SODIUM 141 mmol/L (136-145); WHITE BLOOD COUNT 9.5 X10^3/uL (3.6-10.0); eGFR NON BLACK RACES > 60 (>60)
[2018-07-23 06:19] LABS: PLATELET MORPHOLOGY COMMENT NORMAL (NORMAL)
--- NOTE | 2018-07-23 06:29 | RAD ---
Chest, one view Indication: CHF, chest congestion Comparison: 07/20/2018 Findings: The heart is normal in size. Chronic emphysematous disease and chronic interstitial lung ch anges are present and stable. No focal infiltrate, significant effusion or pneumothorax is identified . There is no acute osseous abnormality. Impression: No acute cardiopulmonary abnormality or significant change since prior. Reported By:
[2018-07-23] MEDS: NS 1000 ML 1,000 ML IV SCH ×2 (07:05→08:25)
[2018-07-23] MEDS: PROTONIX INJ 40 MG VIAL IVP SCH (08:24)
[2018-07-23] MEDS: VANCOMYCIN HCL 1 GM VIAL 1 G in D5W 250 ML IV 250 ML IV SCH (08:24)
[2018-07-23] MEDS: FORTAZ or TAZICEF VIAL INJ 1 G in NS 100 ML IV + SPIKE MINIBAG* 100 ML IV SCH (08:24)
[2018-07-23] MEDS: LOVENOX INJ 40 MG SYR SC SCH (08:25)
[2018-07-23] MEDS: COLACE CAP 100 MG PO SCH ×2 (08:25→20:02)
[2018-07-23] MEDS: LEVSIN/MAALOX/LIDOC VISC PO SCH ×2 (08:30→12:34)
[2018-07-23] MEDS: PROVENTIL NEB TX 0.083% 2.5MG/ 3ML NEB PRN (14:11)
[2018-07-23] MEDS: TUSSIONEX PENNKINETIC SUSP PO PRN (20:03)
[2018-07-24] MEDS: DUONEB 0.5 MG/3 MG NEB SCH ×4 (01:00→16:59)
[2018-07-24 05:19] LABS: BASOPHILS # (AUTO) 0.1 X10^3/uL (0.0-0.1); BASOPHILS % (AUTO) 0.9 % (0.2-1.0); EOSINOPHILS # (AUTO) 0.8 x10^3/uL (0.0-0.2); EOSINOPHILS % (AUTO) 9.7 % (0.9-2.9); HEMATOCRIT 22.8 % (42.0-54.0); HEMOGLOBIN 7.4 g/dL (13.5-18.0); LYMPHOCYTES # (AUTO) 1.1 X10^3/uL (1.3-2.9); LYMPHOCYTES % (AUTO) 14.2 % (21.0-51.0); MEAN CORPUSCULAR HGB CONC 32.3 g/dL (33.0-35.0); MEAN CORPUSCULAR VOLUME 83.5 fL (80.0-100.0); MEAN PLATELET VOLUME 8.1 fL (7.4-11.0); MONOCYTES # (AUTO) 1.1 x10^3/uL (0.3-0.8); MONOCYTES % (AUTO) 13.4 % (0.0-13.0); NEUTROPHILS # (AUTO) 4.9 x10^3/uL (2.2-4.8); NEUTROPHILS % (AUTO) 61.8 % (42.0-75.0); PLATELET COUNT 245 X10^3/uL (150.0-450.0); RED BLOOD COUNT 2.73 X10^6/uL (4.7-6.0); RED CELL DISTRIBUTION WIDTH 16.5 % (11.6-16.5)
[2018-07-24 05:31] LABS: PLATELET MORPHOLOGY COMMENT NORMAL (NORMAL)
[2018-07-24 05:34] LABS: ALANINE AMINOTRANSFERASE 12 Units/L (12-78); ALBUMIN 2.4 g/dL (3.4-5.0); ALKALINE PHOSPHATASE 46 Units/L (46-116); ASPARTATE AMINO TRANSFERASE 13 Units/L (15-37); BLOOD UREA NITROGEN 18 mg/dL (7-18); CALCIUM 8.5 mg/dL (8.5-10.1); CARBON DIOXIDE 35.8 mmol/L (21-32); CHLORIDE 105 mmol/L (98-107); COR CA(FOR HYPOALB) 9.8 mg/dL (8.5-10.1); CREATININE 0.86 mg/dL (0.70-1.30); SODIUM 142 mmol/L (136-145); TOTAL PROTEIN 5.8 g/dL (6.4-8.2); eGFR NON BLACK RACES > 60 (>60)
[2018-07-24] MEDS: PROVENTIL NEB TX 0.083% 2.5MG/ 3ML NEB PRN (09:28)
[2018-07-24 09:38] LABS: CREATININE 0.8 mg/dL (0.70-1.30); VANCOMYCIN,TROUGH 9.7 ug/mL (15-20)
[2018-07-24] MEDS: COLACE CAP 100 MG PO SCH ×2 (09:54→20:06)
[2018-07-24] MEDS: FORTAZ or TAZICEF VIAL INJ 1 G in NS 100 ML IV + SPIKE MINIBAG* 100 ML IV SCH (09:56)
[2018-07-24] MEDS: PROTONIX INJ 40 MG VIAL IVP SCH (09:56)
[2018-07-24] MEDS: LOVENOX INJ 40 MG SYR SC SCH (09:56)
[2018-07-24] MEDS: CORTISPORIN OPHTH SUSP EACHEYE SCH ×2 (10:06→12:22)
[2018-07-24] MEDS: VANCOMYCIN HCL 1 GM VIAL 1 G, VANCOMYCIN HCL 500 MG VIAL 250 MG in D5W 250 ML IV 250 ML IV SCH (10:17)
[2018-07-24] MEDS: NS 1000 ML 1,000 ML IV SCH (10:18)
[2018-07-24] MEDS: NORCO 10/325 TAB PO PRN ×3 (11:11→20:06)
[2018-07-24] MEDS ORDERED: PYRIDIUM PO SCH (12:00)
[2018-07-24] MEDS: TobraDEX OPHTH SUSP AFFEYE SCH ×3 (12:06→19:16)
[2018-07-24] MEDS: VANCOMYCIN HCL 1 GM VIAL 1 G in D5W 250 ML IV 250 ML IV SCH (12:07)
[2018-07-24] MEDS ORDERED: PHARMACY CONSULT - DOSE _____ XX SCH (15:00)
[2018-07-24] MEDS ORDERED: NS 100 ML IV 100 ML with VENOFER 400 MG IV NR ×2 (17:00)
--- NOTE | 2018-07-24 17:53 | PCM.PROG ---
Progress Note - Progress Note for Day of Date of Exam: 07/24/18 - Subjective Subjective: 77WM ADMITTED ON 07/18 WITH ACUTE RENAL FAILURE, HYPERKALEMIA AND MRSA + ABSCESS TO SCALP. PT K 4.6, WBC 8 CREAT 0.56. IVF AT [facility], ENCOURAGED ORAL. URINE CULTURE ECOLI POSITIVE. PT ON IV ATBX, CO SEVERE BURNING "WHEN I PEE" ADDED NYSTATIN OINT TO PENIS AREA, PYRIDIUM FOR DYSURIA, ENCOURAGED ORAL HYDRATION, HGB 7.4, ANEMIA PANEL TODAY WITH PHARMACY CONSULT FOR IRON INFUSION. DR HEATH CONSULTED-multiple skin Bxs were obtained from large scalp ulcer. - Past Medical Family Social History Past Med/Fam/Surg Hx: No changes since H&P Allergies: Allergies penicillin G Adverse Reaction (Verified 02/28/18 15:00) - Review of Systems ROS: No change since H&P - Vital Signs and I&O's Vital Signs: Temperature 98.6 F Pulse Rate [Right Brachial] 68 Pulse Rate 68 Respiratory Rate 20 Blood Pressure [Left Arm] 135/74 Blood Pressure [Right Arm] 142/67 Blood Pressure 123/58 O2 Sat by Pulse Oximetry 98 Intake and Output: Intake & Output 07/22/18 07/23/18 07/24/18 07/25/18 11:59 11:59 11:59 11:59 Intake Total 2587 / 2587 2237 / 2237 850 / 850 1020 / 1020 Output Total 50 / 50 Balance 2537 / 2537 2237 / 2237 850 / 850 1020 / 1020 - Physical Exam Oriented: Normal Eyes: Normal Ear: Normal Nose: Normal Throat: Normal Respiratory: Diminished, Rhonchi Cardiovascular: Normal. negative: Murmur : Normal Auscultation: Bowel Sounds: Normal, Absent Tenderness: Normal Skin: Tender, Wound (POSTERIOR SCALP ) Musculoskeletal: Motor Deficit, Sensory Deficit Psychiatric: Depression Affect: Anxious Speech Pattern: Clear, Appropriate - Laboratory and Diagnostics Result Diagrams: 07/24/18 04:35 07/24/18 09:11 Labs: 07/20/18 10:42 Head Gram Stain - Final 07/20/18 10:42 Head Wound Culture - Final Methicillin Resis Staph Aureus 07/19/18 01:25 Urine,Catheterized Urine Culture - Final Escherichia Coli Laboratory WBC 8.0 X10^3/uL (3.6-10.0) 07/24/18 04:35 RBC 2.73 X10^6/uL (4.7-6.0) L 07/24/18 04:35 Hgb 7.4 g/dL (13.5-18.0) L 07/24/18 04:35 Hct 22.8 % (42.0-54.0) L 07/24/18 04:35 MCV 83.5 fL (80.0-100.0) 07/24/18 04:35 MCH 27.0 pg (27.0-34.0) 07/24/18 04:35 MCHC 32.3 g/dL (33.0-35.0) L 07/24/18 04:35 RDW 16.5 % (11.6-16.5) 07/24/18 04:35 Plt Count 245 X10^3/uL (150.0-450.0) 07/24/18 04:35 Plt Count Comment Adequate (ADEQUATE) 07/24/18 04:35 MPV 8.1 fL (7.4-11.0) 07/24/18 04:35 Neut % (Auto) 61.8 % (42.0-75.0) 07/24/18 04:35 Lymph % (Auto) 14.2 % (21.0-51.0) L 07/24/18 04:35 [place] % (Auto) 13.4 % (0.0-13.0) H 07/24/18 04:35 Eos % (Auto) 9.7 % (0.9-2.9) H 07/24/18 04:35 Baso % (Auto) 0.9 % (0.2-1.0) 07/24/18 04:35 Neut # (Auto) 4.9 x10^3/uL (2.2-4.8) H 07/24/18 04:35 Lymph # (Auto) 1.1 X10^3/uL (1.3-2.9) L 07/24/18 04:35 [place] # (Auto) 1.1 x10^3/uL (0.3-0.8) H 07/24/18 04:35 Eos # (Auto) 0.8 x10^3/uL (0.0-0.2) H 07/24/18 04:35 Baso # (Auto) 0.1 X10^3/uL (0.0-0.1) 07/24/18 04:35 Absolute Nucleated RBC 0.0 /100WBC 07/24/18 04:35 Plt Morphology Comment Normal (NORMAL) 07/24/18 04:35 RBC Morphology Normal (NORMAL) 07/24/18 04:35 Sodium 142 mmol/L (136-145) 07/24/18 04:35 Corrected Sodium TNP 07/24/18 04:35 Potassium 4.6 mmol/L (3.5-5.1) 07/24/18 04:35 Chloride 105 mmol/L (98-107) 07/24/18 04:35 Carbon Dioxide 35.8 mmol/L (21-32) H 07/24/18 04:35 BUN 18 mg/dL (7-18) 07/24/18 04:35 Creatinine 0.80 mg/dL (0.70-1.30) 07/24/18 09:11 Est GFR (MDRD) Af Amer > 60 (>60) 07/24/18 04:35 Est GFR (MDRD) Non-Af > 60 (>60) 07/24/18 04:35 Glucose 88 mg/dL (65-99) 07/24/18 04:35 Calcium 8.5 mg/dL (8.5-10.1) 07/24/18 04:35 Corrected Calcium 9.8 mg/dL (8.5-10.1) 07/24/18 04:35 Iron 18 ug/dL (50-175) L 07/24/18 09:11 Transferrin 186 mg/dL (202-364) L 07/24/18 09:11 Ferritin 43 ng/mL (26-388) 07/24/18 09:11 Total Bilirubin 0.20 mg/dL (0.2-1.0) 07/24/18 04:35 AST 13 Units/L (15-37) L 07/24/18 04:35 ALT 12 Units/L (12-78) 07/24/18 04:35 Alkaline Phosphatase 46 Units/L (46-116) 07/24/18 04:35 Total Protein 5.8 g/dL (6.4-8.2) L 07/24/18 04:35 Albumin 2.4 g/dL (3.4-5.0) L 07/24/18 04:35 Globulin 3.4 g/dL (2.5-4.5) 07/24/18 04:35 Albumin/Globulin Ratio 0.7 Ratio (1.1-2.1) L 07/24/18 04:35 Vitamin B12 567 pg/mL (193-986) 07/24/18 09:11 Folate 8.3 ng/mL (>8.6) L 07/24/18 09:11 Specimen Type Catherized urine 07/19/18 01:25 Urine Color Yellow (YELLOW) 07/19/18 01:25 Urine Appearance Clear (CLEAR) 07/19/18 01:25 Urine pH 6.0 (5.0 - 8.0) 07/19/18 01:25 Ur Specific [place] 1.010 (1.000-1.030) 07/19/18 01:25 Urine Protein Negative (NEGATIVE) 07/19/18 01:25 Urine Glucose (UA) Negative (NEGATIVE) 07/19/18 01:25 Urine Ketones Negative (NEGATIVE) 07/19/18 01:25 Urine Occult Blood Negative (NEGATIVE) 07/19/18 01:25 Urine Nitrite Positive (NEGATIVE) 07/19/18 01:25 Urine Bilirubin Negative (NEGATIVE) 07/19/18 01:25 Urine Urobilinogen Normal (NORMAL) 07/19/18 01:25 Ur Leukocyte Esterase 2+ (NEGATIVE) 07/19/18 01:25 Urine RBC None seen /HPF (NONE SEEN) 07/19/18 01:25 Urine WBC 20-30 /HPF (NONE SEEN) 07/19/18 01:25 Ur Squamous Epith Cells Rare /HPF (NEGATIVE) 07/19/18 01:25 Urine Bacteria 3+ /HPF (NEGATIVE) 07/19/18 01:25 Ur Culture Indicated? Yes/culture set up 07/19/18 01:25 Vancomycin Trough 9.7 ug/mL (15-20) L 07/24/18 09:11 Tissue Pathology To follow 07/20/18 10:42 - Plan (1) Acute on chronic renal failure Status: Acute Plan: REPEAT AM CBC CMP UA ON ADMISSION. GENTLE HYDRATION, MONITOR I & OS. BP MONITORING, CONTINUE WOUND CARE, BIOPSY PENDING (2) UTI (urinary tract infection) Status: Acute Plan: URINE CULTURE +ECOLI. CONTINUE IV HYDRATION, I & OS (3) Scalp abscess Status: Acute (4) Hyperkalemia Status: Resolved (5) Adult failure to thrive Status: Acute (6) CHF (congestive heart failure) Status: Chronic Qualifiers: Qualified Code(s): I50.43 - Acute on chronic combined systolic (congestive) and diastolic (congestive) heart failure (7) COPD (chronic obstructive pulmonary disease) Status: Chronic (8) Hypertension Status: Chronic Qualifiers: Hypertension type: essential hypertension Qualified Code(s): I10 - Essential (primary) hypertension (9) Arthritis Status: Chronic (10) Depression Status: Chronic (11) Iron deficiency Status: Acute Plan: ANEMIA PANEL TODAY, PHARMACY CONSULT FOR IV FE INFUSION
[2018-07-25] MEDS: DUONEB 0.5 MG/3 MG NEB SCH ×3 (00:31→12:18)
[2018-07-25] MEDS: TobraDEX OPHTH SUSP AFFEYE SCH ×4 (00:32→13:01)
[2018-07-25] MEDS: NS 1000 ML 1,000 ML IV SCH (00:33)
[2018-07-25] MEDS: NORCO 10/325 TAB PO PRN (00:33)
[2018-07-25 05:15] LABS: BASOPHILS # (AUTO) 0.1 X10^3/uL (0.0-0.1); BASOPHILS % (AUTO) 0.8 % (0.2-1.0); EOSINOPHILS # (AUTO) 0.8 x10^3/uL (0.0-0.2); HEMATOCRIT 22.1 % (42.0-54.0); HEMOGLOBIN 7.3 g/dL (13.5-18.0); LYMPHOCYTES % (AUTO) 12.7 % (21.0-51.0); MEAN CORPUSCULAR HEMOGLOBIN 27.7 pg (27.0-34.0); MEAN CORPUSCULAR HGB CONC 33.2 g/dL (33.0-35.0); MEAN CORPUSCULAR VOLUME 83.3 fL (80.0-100.0); MEAN PLATELET VOLUME 8.1 fL (7.4-11.0); MONOCYTES # (AUTO) 1.1 x10^3/uL (0.3-0.8); MONOCYTES % (AUTO) 13.5 % (0.0-13.0); NEUTROPHILS # (AUTO) 5.1 x10^3/uL (2.2-4.8); PLATELET COUNT 231 X10^3/uL (150.0-450.0); RED BLOOD COUNT 2.65 X10^6/uL (4.7-6.0); RED CELL DISTRIBUTION WIDTH 16.4 % (11.6-16.5); WHITE BLOOD COUNT 8.1 X10^3/uL (3.6-10.0)
[2018-07-25 05:38] LABS: ALANINE AMINOTRANSFERASE 14 Units/L (12-78); ALBUMIN 2.4 g/dL (3.4-5.0); ALKALINE PHOSPHATASE 47 Units/L (46-116); ASPARTATE AMINO TRANSFERASE 16 Units/L (15-37); BLOOD UREA NITROGEN 14 mg/dL (7-18); CALCIUM 8.4 mg/dL (8.5-10.1); CHLORIDE 104 mmol/L (98-107); COR CA(FOR HYPOALB) 9.7 mg/dL (8.5-10.1); CREATININE 0.86 mg/dL (0.70-1.30); SODIUM 140 mmol/L (136-145); TOTAL PROTEIN 5.8 g/dL (6.4-8.2); eGFR NON BLACK RACES > 60 (>60)
[2018-07-25 06:07] LABS: ANISOCYTOSIS 1+; PLATELET MORPHOLOGY COMMENT NORMAL (NORMAL)
[2018-07-25] MEDS: PROVENTIL NEB TX 0.083% 2.5MG/ 3ML NEB PRN ×2 (07:18→11:20)
[2018-07-25] MEDS: FORTAZ or TAZICEF VIAL INJ 1 G in NS 100 ML IV + SPIKE MINIBAG* 100 ML IV SCH (08:05)
[2018-07-25] MEDS: COLACE CAP 100 MG PO SCH (08:06)
[2018-07-25] MEDS: PROTONIX INJ 40 MG VIAL IVP SCH (08:06)
[2018-07-25] MEDS: LOVENOX INJ 40 MG SYR SC SCH (08:06)
[2018-07-25] MEDS ORDERED: PHARMACY COMMENT IV NR (08:30)
[2018-07-25] MEDS ORDERED: BENADRYL INJ 50 MG VIAL IVP PRN (08:42)
[2018-07-25] MEDS ORDERED: NS 500 ML IV 500 ML IV ONE (08:42)
[2018-07-25] MEDS ORDERED: TYLENOL 325 MG TAB PO PRN (08:42)
[2018-07-25] MEDS: VANCOMYCIN HCL 1 GM VIAL 1 G, VANCOMYCIN HCL 500 MG VIAL 250 MG in D5W 250 ML IV 250 ML IV SCH (08:52)
[2018-07-25] MEDS ORDERED: LASIX IVP SCH (09:00)
[2018-07-25] MEDS ORDERED: FLOMAX PO SCH (09:00)
[2018-07-25] MEDS ORDERED: HEMOCYTE-PLUS PO SCH (09:00)
[2018-07-25] MEDS ORDERED: BUTT CREAM (COMPOUND) TOP PRN (09:47)
[2018-07-25] MEDS ORDERED: FLUVIRIN IM ONE (11:00)
[2018-07-25 13:10] VITALS: BP 126/57
== END 2018-07-25 15:45 | disposition home or self-care (01) | DRG 682 ==
LOC: MED/SURG 11:50
PROVIDERS: ADMIT Internal Medicine; ATTEND Internal Medicine
DX: N39.0 Urinary tract infection, site not specified; K21.9 Gastro-esophageal reflux disease without esophagitis; I50.43 Acute on chronic combined systolic (congestive) and diastolic (congestive) heart failure; E86.0 Dehydration; F32.89 Other specified depressive episodes; I12.9 Hypertensive chronic kidney disease with stage 1 through stage 4 chronic kidney disease, or unspecified chronic kidney disease; J44.9 Chronic obstructive pulmonary disease, unspecified; R53.1 Weakness; N17.8 Other acute kidney failure; D50.8 Other iron deficiency anemias; R26.89 Other abnormalities of gait and mobility; R62.7 Adult failure to thrive; B95.62 Methicillin resistant Staphylococcus aureus infection as the cause of diseases classified elsewhere; R06.02 Shortness of breath; B96.29 Other Escherichia coli [E. coli] as the cause of diseases classified elsewhere; N18.9 Chronic kidney disease, unspecified; L98.498 Non-pressure chronic ulcer of skin of other sites with other specified severity; E78.2 Mixed hyperlipidemia; M13.89 Other specified arthritis, multiple sites; I25.10 Atherosclerotic heart disease of native coronary artery without angina pectoris; L02.811 Cutaneous abscess of head [any part, except face]; E87.6 Hypokalemia
CPT/HCPCS: 36415; 36430; 71010; 71045; 80053; 80202; 81001; 82565; 82607; 82728; 82746; 83540; 84466; 85025; 86850; 86900; 86901; 86922; 87070; 87075; 87077; 87086; 87088; 87186; 87205; 88304; 88312; 90686; 93005; 93010; 94640; 94669; 94760; 97110; 97163; 97167; 97530; 99100; A4222; C9113; P9016; J0713; J1200; J1650; J1756; J1940; J2250; J2405; J2704; J3370; J3490; J7030; J7040; J7050; J7060; J7120; J7613; J7620

== ENCOUNTER 2018-09-11 16:30 | Inpatient (IN) ==
[2018-09-11] MEDS: DUONEB 0.5 MG/3 MG NEB SCH ×2 (17:30→20:42)
[2018-09-11] MEDS ORDERED: TUSSIONEX PENNKINETIC SUSP PO PRN (18:24)
[2018-09-11] MEDS ORDERED: NS 1/2 1000 ML IV 1,000 ML IV ONE (19:00)
[2018-09-11 19:06] LABS: BASOPHILS # (AUTO) 0.1 X10^3/uL (0.0-0.1); BASOPHILS % (AUTO) 1.1 % (0.2-1.0); EOSINOPHILS # (AUTO) 0.5 x10^3/uL (0.0-0.2); EOSINOPHILS % (AUTO) 3.9 % (0.9-2.9); HEMATOCRIT 34.7 % (42.0-54.0); HEMOGLOBIN 11.5 g/dL (13.5-18.0); LYMPHOCYTES % (AUTO) 8.7 % (21.0-51.0); MEAN CORPUSCULAR HEMOGLOBIN 27.9 pg (27.0-34.0); MEAN CORPUSCULAR HGB CONC 33.1 g/dL (33.0-35.0); MEAN CORPUSCULAR VOLUME 84.3 fL (80.0-100.0); MEAN PLATELET VOLUME 8.3 fL (7.4-11.0); MONOCYTES # (AUTO) 1.2 x10^3/uL (0.3-0.8); MONOCYTES % (AUTO) 10.5 % (0.0-13.0); NEUTROPHILS # (AUTO) 8.9 x10^3/uL (2.2-4.8); NEUTROPHILS % (AUTO) 75.8 % (42.0-75.0); PLATELET COUNT 231 X10^3/uL (150.0-450.0); RED BLOOD COUNT 4.11 X10^6/uL (4.7-6.0); RED CELL DISTRIBUTION WIDTH 19.5 % (11.6-16.5); WHITE BLOOD COUNT 11.8 X10^3/uL (3.6-10.0)
[2018-09-11] MEDS: NS 1/2 1000 ML IV 1,000 ML IV SCH ×2 (19:12→19:17)
[2018-09-11 19:20] LABS: ALANINE AMINOTRANSFERASE 17 Units/L (12-78); ALBUMIN 2.9 g/dL (3.4-5.0); ALKALINE PHOSPHATASE 45 Units/L (46-116); ASPARTATE AMINO TRANSFERASE 13 Units/L (15-37); BLOOD UREA NITROGEN 53 mg/dL (7-18); CALCIUM 8.9 mg/dL (8.5-10.1); CHLORIDE 99 mmol/L (98-107); COR CA(FOR HYPOALB) 9.8 mg/dL (8.5-10.1); COR NA(FOR HYPERGLY) 141 mmol/L (136-145); SODIUM 140 mmol/L (136-145); TOTAL PROTEIN 7.4 g/dL (6.4-8.2); eGFR NON BLACK RACES 52 (>60)
[2018-09-11] MEDS: LEVAQUIN PREMIX IV 750 MG 750 MG/150 ML BAG IV SCH (20:14)
[2018-09-11] MEDS: BROVANA IN SCH (20:42)
[2018-09-11] MEDS: PULMICORT NEB TX 0.5 MG NEB SCH (20:42)
[2018-09-11] MEDS: COLACE CAP 100 MG PO SCH (21:08)
[2018-09-11] MEDS: ROBITUSSIN DM PO SCH (21:08)
[2018-09-11] MEDS: MILK OF MAGNESIA PO SCH (21:08)
[2018-09-11] MEDS: NORCO 10/325 TAB PO PRN (21:08)
[2018-09-12] MEDS: DUONEB 0.5 MG/3 MG NEB SCH ×6 (00:55→20:12)
[2018-09-12] MEDS ORDERED: BUTT CREAM (COMPOUND) TOP PRN (03:49)
[2018-09-12 05:45] LABS: ALANINE AMINOTRANSFERASE 16 Units/L (12-78); ALBUMIN 2.5 g/dL (3.4-5.0); ALKALINE PHOSPHATASE 38 Units/L (46-116); ASPARTATE AMINO TRANSFERASE 13 Units/L (15-37); BLOOD UREA NITROGEN 45 mg/dL (7-18); CALCIUM 8.5 mg/dL (8.5-10.1); CHLORIDE 101 mmol/L (98-107); COR CA(FOR HYPOALB) 9.7 mg/dL (8.5-10.1); CREATININE 1.22 mg/dL (0.70-1.30); SODIUM 139 mmol/L (136-145); TOTAL PROTEIN 6.6 g/dL (6.4-8.2); eGFR NON BLACK RACES > 60 (>60)
[2018-09-12 06:12] LABS: BASOPHILS # (AUTO) 0.1 X10^3/uL (0.0-0.1); BASOPHILS % (AUTO) 0.7 % (0.2-1.0); EOSINOPHILS # (AUTO) 0.7 x10^3/uL (0.0-0.2); HEMATOCRIT 31.8 % (42.0-54.0); HEMOGLOBIN 10.7 g/dL (13.5-18.0); LYMPHOCYTES # (AUTO) 1.5 X10^3/uL (1.3-2.9); LYMPHOCYTES % (AUTO) 13.4 % (21.0-51.0); MEAN CORPUSCULAR HEMOGLOBIN 28.1 pg (27.0-34.0); MEAN CORPUSCULAR HGB CONC 33.5 g/dL (33.0-35.0); MEAN CORPUSCULAR VOLUME 83.9 fL (80.0-100.0); MEAN PLATELET VOLUME 8.4 fL (7.4-11.0); MONOCYTES # (AUTO) 1.3 x10^3/uL (0.3-0.8); MONOCYTES % (AUTO) 11.9 % (0.0-13.0); NEUTROPHILS # (AUTO) 7.6 x10^3/uL (2.2-4.8); PLATELET COUNT 213 X10^3/uL (150.0-450.0); RED BLOOD COUNT 3.79 X10^6/uL (4.7-6.0); RED CELL DISTRIBUTION WIDTH 19.2 % (11.6-16.5); WHITE BLOOD COUNT 11.2 X10^3/uL (3.6-10.0)
--- NOTE | 2018-09-12 06:49 | RAD ---
HISTORY: Chest congestion Study: Chest AP portable Comparison: 09/11/2018 Findings: The heart is within normal limits in size. The chevy are normal. The lungs are well inflated and free of acute alveolar infiltrates. There has been improvement in the parenchymal density being followed in the right lung apex. Pleuro parenchymal scarring remains in that area. Minimal bibasilar interstitial lung changes are present. No pleural effusions are identified. The bony thorax is unremarkable. IMPRESSION: No definite residual right apical lung infiltrate Pleuro parenchymal scarring right upper lobe Mild bibasilar interstitial lung changes likely chronic Reported By:
[2018-09-12] MEDS: BROVANA IN SCH ×2 (09:00→20:12)
[2018-09-12] MEDS: PULMICORT NEB TX 0.5 MG NEB SCH ×2 (09:00→20:12)
[2018-09-12] MEDS ORDERED: NS 1/2 1000 ML IV 1,000 ML IV ONE (10:08)
[2018-09-12] MEDS: ROBITUSSIN DM PO SCH ×4 (10:13→20:52)
[2018-09-12] MEDS: MILK OF MAGNESIA PO SCH ×2 (10:13→20:52)
[2018-09-12] MEDS: LEVAQUIN PREMIX IV 750 MG 750 MG/150 ML BAG IV SCH (10:13)
[2018-09-12] MEDS: NS 1/2 1000 ML IV 1,000 ML IV SCH (10:13)
[2018-09-12] MEDS: COLACE CAP 100 MG PO SCH ×3 (10:49→20:51)
[2018-09-12] MEDS: CELEXA PO SCH (10:49)
[2018-09-12] MEDS: THEO-DUR TAB 200 MG PO SCH (10:49)
[2018-09-12] MEDS: ZyrTEC TAB 10 MG PO SCH (10:50)
[2018-09-12] MEDS: PriLOSEC PO SCH ×2 (10:50→20:52)
[2018-09-12] MEDS: ALDACTONE TAB 25 MG PO SCH ×2 (10:50→20:50)
[2018-09-12] MEDS: HEMOCYTE-PLUS PO SCH (10:50)
[2018-09-12] MEDS: COREG TAB 6.25 MG PO SCH ×2 (10:50→20:51)
[2018-09-12] MEDS: PREDNISONE TAB 5 MG PO SCH (10:50)
[2018-09-12] MEDS: ASPIRIN 81 MG CHEWTAB PO SCH (10:50)
--- NOTE | 2018-09-12 15:58 | DR.H&P ---
H&P - History & Physical for Day of: H&P Date: 09/11/18 - Chief Complaint Chief Complaint: COUGH, WHEEZING, CHEST CONGESTION - History of Present Illness History of Present Illness: 77 WM DIRECT ADMIT FROM [facility] WITH CO INCREASED CCC AND WHEEZING. PT HAD CXR REVEALING PNEUMONIA. PT HAS PMH OF COPD WITH CHRONIC RESP FAILURE. [facility] STAFF STATES PT HAD HAD INCREASED SOB, CHEST CONGESTION AND WHEEZING. PT HAS PMH OF CHF, HTN, OA, CAD, CHRONIC RESP FAILURE - Past Medical History Past Medical History: Anemia, Angina, Anxiety, Arthritis, CHF, COPD, Coronary Artery Disease, Depression, Dyslipidemia, GERD, Hypertension, [place] Additional Medical History: Hx BPH, Degenerative Disc Disease, Hx Skin Cancer - Past Surgical History Surgical History: Ortho Surgery, Tonsillectomy Additional Surgical History: 2 Inguinal Hernia Repairs, 1 Umbilical Hernia Repair - Family History Family Medical History: Cancer - Social History Does patient currently use any type of tobacco product: No Have you used tobacco products in the last 12 months: No Type of Tobacco Use: Cigarettes How many years tobacco product used: 55 Does any household member use tobacco: No Alcohol Use: None Drug Use: None - Medications Home Medications: penicillin G Adverse Reaction (Verified 02/28/18 15:00) CONTINUE taking the following medications iron-folic acid-mv, min cmb#15 [Hemocyte-Plus] 1 tab PO DAILY 09/11/18 [History] lanolin 1 applic TOPICAL TID-QID PRN 09/11/18 [History] tamsulosin [Flomax] 0.4 mg PO HS 09/11/18 [History] temazepam [Restoril] 1 tab PO HS 09/11/18 [History] - Review of Systems Constitutional: Weakness Eyes: No Symptoms Reported ENT: No Symptoms Reported Respiratory: Cough, Shortness of Breath, Sputum, Wheezing Cardiovascular: denies: Chest Pain, Edema Gastrointestinal: No Symptoms Reported Genitourinary: No Symptoms Reported Musculoskeletal: Back Pain Skin: No Symptoms Reported Neurological: Weakness - Physical Exam Vital Signs: Temperature 98.1 F Pulse Rate [Right Radial] 70 Pulse Rate 73 Respiratory Rate 20 Blood Pressure [Left Arm] 125/70 Blood Pressure [Right Arm] 158/67 Blood Pressure 126/57 O2 Sat by Pulse Oximetry 95 Oriented: Normal Eyes: Blurred Vision (CHRONIC) Ear: Normal Nose: Normal Throat: Normal Respiratory: Rhonchi Throughout, RLL Diminished, LLL Diminished Cardiovascular: Normal. negative: Edema : Normal Auscultation: Bowel Sounds: Normal Palpation: Normal Tenderness: Normal Skin: Decreased Turgur Musculoskeletal: Motor Deficit, Instability Psychiatric: Anxiety Affect: Anxious Speech Pattern: Clear, Appropriate - Assessment/Plan (1) Pneumonia Status: Acute Plan: ADMIT, PNEUMONIA PROTOCOL, IV ATBX. BLOOD AND SPUTUM CULTURES ON ADMISSION. RESP CONSULT, SUPPLEMENTAL O2. VERIFY HOME MEDS AND RESUME. CXR Q AM, REPEAT AM CBC CMP (2) CHF (congestive heart failure) Qualifiers: Qualified Code(s): I50.43 - Acute on chronic combined systolic (congestive) and diastolic (congestive) heart failure Status: Chronic (3) COPD (chronic obstructive pulmonary disease) Status: Chronic (4) Hypertension Qualifiers: Hypertension type: essential hypertension Qualified Code(s): I10 - Essential (primary) hypertension Status: Chronic (5) GERD (gastroesophageal reflux disease) Status: Chronic (6) History of BPH Status: Chronic (7) Arthritis Status: Chronic - Allergies Allergies/Adverse Reactions: Allergies Allergy/AdvReac Type Severity Reaction Status Date / Time penicillin G AdvReac Verified 02/28/18 15:00
--- NOTE | 2018-09-12 16:08 | PCM.PROG ---
Progress Note - Progress Note for Day of Date of Exam: 09/12/18 - Subjective Subjective: 77 WM ADMITTED ON 09/11 WITH PNEUMONIA, PT CURRENTLY ON IV ATBX, SUPPLEMENTAL O2. RESP THERAPY, CULTURE COLLECTED ON ADMISSION. PT RENAL FUNCTION BUN 53 CREAT 1.40 IMPROVED THIS AM BUN 45, CREAT 1.22. PLAN TO CONTINUE PNEUMONIA PROTOCOL - Past Medical Family Social History Past Med/Fam/Surg Hx: No changes since H&P Allergies: Allergies penicillin G Adverse Reaction (Verified 02/28/18 15:00) - Review of Systems ROS: No change since H&P - Vital Signs and I&O's Vital Signs: Temperature 98.1 F Pulse Rate [Right Radial] 70 Pulse Rate 73 Respiratory Rate 20 Blood Pressure [Left Arm] 125/70 Blood Pressure [Right Arm] 158/67 Blood Pressure 126/57 O2 Sat by Pulse Oximetry 95 Intake and Output: Intake & Output 09/10/18 09/11/18 09/12/18 09/13/18 11:59 11:59 11:59 11:59 Intake Total 1360 / 1360 390 / 390 Balance 1360 / 1360 390 / 390 - Physical Exam Oriented: Normal Eyes: Blurred Vision (CHRONIC) Ear: Normal Nose: Normal Throat: Normal Respiratory: Diminished, Wheezes, Rhonchi Cardiovascular: Normal. negative: Edema : Normal Auscultation: Bowel Sounds: Normal Tenderness: Normal Skin: Decreased Turgur Musculoskeletal: Motor Deficit, Instability Psychiatric: Anxiety Affect: Anxious Speech Pattern: Clear, Appropriate - Laboratory and Diagnostics Result Diagrams: 09/12/18 05:11 09/12/18 05:11 Labs: 09/11/18 17:48 Sputum - Expectorated Sputum - Final Laboratory WBC 11.2 X10^3/uL (3.6-10.0) H 09/12/18 05:11 RBC 3.79 X10^6/uL (4.7-6.0) L 09/12/18 05:11 Hgb 10.7 g/dL (13.5-18.0) L 09/12/18 05:11 Hct 31.8 % (42.0-54.0) L 09/12/18 05:11 MCV 83.9 fL (80.0-100.0) 09/12/18 05:11 MCH 28.1 pg (27.0-34.0) 09/12/18 05:11 MCHC 33.5 g/dL (33.0-35.0) 09/12/18 05:11 RDW 19.2 % (11.6-16.5) H 09/12/18 05:11 Plt Count 213 X10^3/uL (150.0-450.0) 09/12/18 05:11 MPV 8.4 fL (7.4-11.0) 09/12/18 05:11 Neut % (Auto) 68.0 % (42.0-75.0) 09/12/18 05:11 Lymph % (Auto) 13.4 % (21.0-51.0) L 09/12/18 05:11 [place] % (Auto) 11.9 % (0.0-13.0) 09/12/18 05:11 Eos % (Auto) 6.0 % (0.9-2.9) H 09/12/18 05:11 Baso % (Auto) 0.7 % (0.2-1.0) 09/12/18 05:11 Neut # (Auto) 7.6 x10^3/uL (2.2-4.8) H 09/12/18 05:11 Lymph # (Auto) 1.5 X10^3/uL (1.3-2.9) 09/12/18 05:11 Victoria # (Auto) 1.3 x10^3/uL (0.3-0.8) H 09/12/18 05:11 Eos # (Auto) 0.7 x10^3/uL (0.0-0.2) H 09/12/18 05:11 Baso # (Auto) 0.1 X10^3/uL (0.0-0.1) 09/12/18 05:11 Absolute Nucleated RBC 0.0 /100WBC 09/12/18 05:11 Sodium 139 mmol/L (136-145) 09/12/18 05:11 Corrected Sodium TNP 09/12/18 05:11 Potassium 4.2 mmol/L (3.5-5.1) 09/12/18 05:11 Chloride 101 mmol/L (98-107) 09/12/18 05:11 Carbon Dioxide 31.0 mmol/L (21-32) 09/12/18 05:11 BUN 45 mg/dL (7-18) H 09/12/18 05:11 Creatinine 1.22 mg/dL (0.70-1.30) 09/12/18 05:11 Est GFR (MDRD) Af Amer > 60 (>60) 09/12/18 05:11 Est GFR (MDRD) Non-Af > 60 (>60) 09/12/18 05:11 Glucose 92 mg/dL (65-99) 09/12/18 05:11 Calcium 8.5 mg/dL (8.5-10.1) 09/12/18 05:11 Corrected Calcium 9.7 mg/dL (8.5-10.1) 09/12/18 05:11 Total Bilirubin 0.30 mg/dL (0.2-1.0) 09/12/18 05:11 AST 13 Units/L (15-37) L 09/12/18 05:11 ALT 16 Units/L (12-78) 09/12/18 05:11 Alkaline Phosphatase 38 Units/L (46-116) L 09/12/18 05:11 Total Protein 6.6 g/dL (6.4-8.2) 09/12/18 05:11 Albumin 2.5 g/dL (3.4-5.0) L 09/12/18 05:11 Globulin 4.1 g/dL (2.5-4.5) 09/12/18 05:11 Albumin/Globulin Ratio 0.6 Ratio (1.1-2.1) L 09/12/18 05:11 - Plan (1) Pneumonia Status: Acute Plan: CONTINUE PNEUMONIA PROTOCOL, IV ATBX. BLOOD AND SPUTUM CULTURES ON ADMISSION. RESP CONSULT, SUPPLEMENTAL O2. CXR Q AM, REPEAT AM CBC CMP (2) CHF (congestive heart failure) Status: Chronic Qualifiers: Qualified Code(s): I50.43 - Acute on chronic combined systolic (congestive) and diastolic (congestive) heart failure (3) COPD (chronic obstructive pulmonary disease) Status: Chronic (4) Hypertension Status: Chronic Qualifiers: Hypertension type: essential hypertension Qualified Code(s): I10 - Essential (primary) hypertension (5) GERD (gastroesophageal reflux disease) Status: Chronic (6) History of BPH Status: Chronic (7) Arthritis Status: Chronic
[2018-09-12] MEDS: NORCO 10/325 TAB PO PRN (18:58)
[2018-09-12] MEDS: FLEXERIL TAB 10 MG PO SCH (20:51)
[2018-09-12] MEDS: FLOMAX PO SCH (20:51)
[2018-09-12] MEDS: LIPITOR TAB 40 MG PO SCH (20:51)
[2018-09-12] MEDS: RESTORIL CAP 15 MG PO SCH (20:52)
[2018-09-13] MEDS: NS 1/2 1000 ML IV 1,000 ML IV SCH ×3 (00:40→21:11)
[2018-09-13] MEDS: DUONEB 0.5 MG/3 MG NEB SCH ×6 (00:51→21:00)
[2018-09-13] MEDS ORDERED: NS 1/2 1000 ML IV 1,000 ML IV ONE ×2 (00:51→20:37)
[2018-09-13 05:20] LABS: BASOPHILS # (AUTO) 0.1 X10^3/uL (0.0-0.1); BASOPHILS % (AUTO) 0.6 % (0.2-1.0); EOSINOPHILS # (AUTO) 0.5 x10^3/uL (0.0-0.2); EOSINOPHILS % (AUTO) 5.7 % (0.9-2.9); HEMATOCRIT 32.5 % (42.0-54.0); HEMOGLOBIN 10.6 g/dL (13.5-18.0); LYMPHOCYTES # (AUTO) 1.6 X10^3/uL (1.3-2.9); LYMPHOCYTES % (AUTO) 16.9 % (21.0-51.0); MEAN CORPUSCULAR HEMOGLOBIN 27.6 pg (27.0-34.0); MEAN CORPUSCULAR HGB CONC 32.6 g/dL (33.0-35.0); MEAN CORPUSCULAR VOLUME 84.7 fL (80.0-100.0); MEAN PLATELET VOLUME 8.3 fL (7.4-11.0); MONOCYTES # (AUTO) 0.9 x10^3/uL (0.3-0.8); NEUTROPHILS # (AUTO) 6.3 x10^3/uL (2.2-4.8); NEUTROPHILS % (AUTO) 66.8 % (42.0-75.0); PLATELET COUNT 205 X10^3/uL (150.0-450.0); RED BLOOD COUNT 3.84 X10^6/uL (4.7-6.0); RED CELL DISTRIBUTION WIDTH 19.4 % (11.6-16.5); WHITE BLOOD COUNT 9.4 X10^3/uL (3.6-10.0)
[2018-09-13 05:45] LABS: ALANINE AMINOTRANSFERASE 18 Units/L (12-78); ALBUMIN 2.3 g/dL (3.4-5.0); ALKALINE PHOSPHATASE 36 Units/L (46-116); ASPARTATE AMINO TRANSFERASE 16 Units/L (15-37); BLOOD UREA NITROGEN 28 mg/dL (7-18); CALCIUM 8.5 mg/dL (8.5-10.1); CARBON DIOXIDE 28.5 mmol/L (21-32); CHLORIDE 104 mmol/L (98-107); COR CA(FOR HYPOALB) 9.9 mg/dL (8.5-10.1); CREATININE 0.97 mg/dL (0.70-1.30); SODIUM 139 mmol/L (136-145); TOTAL PROTEIN 6.1 g/dL (6.4-8.2); eGFR NON BLACK RACES > 60 (>60)
--- NOTE | 2018-09-13 07:51 | RAD ---
History: Congestion Study: AP chest Comparison: Yesterday Findings: There is streaky linear density in the right upper lobe radiating from the right hilum. There is thin linear horizontal density in the lingula. There is no effusion evident. There are mildly increased interstitial lung markings primarily in the lower lobes. Impression: Fibrotic changes in the right upper lobe and in the lingula and some chronic interstitial changes diffusely. No acute disease demonstrated. Reported By:
[2018-09-13] MEDS: LEVAQUIN PREMIX IV 750 MG 750 MG/150 ML BAG IV SCH (08:06)
[2018-09-13] MEDS: COREG TAB 6.25 MG PO SCH ×2 (08:06→21:13)
[2018-09-13] MEDS: COLACE CAP 100 MG PO SCH ×3 (08:06→21:13)
[2018-09-13] MEDS: HEMOCYTE-PLUS PO SCH (08:06)
[2018-09-13] MEDS: MILK OF MAGNESIA PO SCH ×2 (08:06→21:12)
[2018-09-13] MEDS: ALDACTONE TAB 25 MG PO SCH ×2 (08:06→21:13)
[2018-09-13] MEDS: ASPIRIN 81 MG CHEWTAB PO SCH (08:06)
[2018-09-13] MEDS: CELEXA PO SCH (08:06)
[2018-09-13] MEDS: NORCO 10/325 TAB PO PRN ×2 (08:07→19:11)
[2018-09-13] MEDS: ZyrTEC TAB 10 MG PO SCH (08:07)
[2018-09-13] MEDS: ROBITUSSIN DM PO SCH ×4 (08:07→21:12)
[2018-09-13] MEDS: PriLOSEC PO SCH ×2 (08:07→21:12)
[2018-09-13] MEDS: PREDNISONE TAB 5 MG PO SCH (08:07)
[2018-09-13] MEDS: THEO-DUR TAB 200 MG PO SCH (08:07)
[2018-09-13 08:37] VITALS: BMI 22.2
[2018-09-13] MEDS: BROVANA IN SCH ×2 (09:05→21:00)
[2018-09-13] MEDS: PULMICORT NEB TX 0.5 MG NEB SCH ×2 (09:06→21:00)
--- NOTE | 2018-09-13 13:17 | PCM.PROG ---
Progress Note - Progress Note for Day of Date of Exam: 09/13/18 - Subjective Subjective: 77 WM ADMITTED ON 09/11 WITH PNEUMONIA, PT CURRENTLY ON IV ATBX, SUPPLEMENTAL O2. RESP THERAPY, CULTURE COLLECTED ON ADMISSION. PT RENAL FUNCTION IMPROVED THIS AM BUN 28, CREAT 0.97 PLAN TO CONTINUE PNEUMONIA PROTOCOL - Past Medical Family Social History Past Med/Fam/Surg Hx: No changes since H&P Allergies: Allergies penicillin G Adverse Reaction (Verified 02/28/18 15:00) - Review of Systems ROS: No change since H&P - Vital Signs and I&O's Vital Signs: Temperature 98.0 F Pulse Rate [Right Radial] 66 Pulse Rate 71 Respiratory Rate 22 Blood Pressure [Left Arm] 100/59 Blood Pressure [Right Arm] 159/71 Blood Pressure 126/57 O2 Sat by Pulse Oximetry 95 Intake and Output: Intake & Output 09/11/18 09/12/18 09/13/18 09/14/18 11:59 11:59 11:59 11:59 Intake Total 1360 / 1360 2140 / 2140 Balance 1360 / 1360 2140 / 2140 - Physical Exam Oriented: Normal Eyes: Blurred Vision (CHRONIC) Ear: Normal Nose: Normal Throat: Normal Respiratory: Diminished, Wheezes, Rhonchi Cardiovascular: Normal. negative: Edema : Normal Auscultation: Bowel Sounds: Normal Tenderness: Normal Skin: Decreased Turgur Musculoskeletal: Motor Deficit, Instability Psychiatric: Anxiety Affect: Anxious Speech Pattern: Clear, Appropriate - Laboratory and Diagnostics Result Diagrams: 09/13/18 04:32 09/13/18 04:32 Labs: 09/11/18 18:55 Blood Blood Culture - Preliminary 09/11/18 18:46 Blood Blood Culture - Preliminary 09/11/18 17:48 Sputum - Expectorated Sputum Sputum Culture - Preliminary 09/11/18 17:48 Sputum - Expectorated Sputum - Final Laboratory WBC 9.4 X10^3/uL (3.6-10.0) 09/13/18 04:32 RBC 3.84 X10^6/uL (4.7-6.0) L 09/13/18 04:32 Hgb 10.6 g/dL (13.5-18.0) L 09/13/18 04:32 Hct 32.5 % (42.0-54.0) L 09/13/18 04:32 MCV 84.7 fL (80.0-100.0) 09/13/18 04:32 MCH 27.6 pg (27.0-34.0) 09/13/18 04:32 MCHC 32.6 g/dL (33.0-35.0) L 09/13/18 04:32 RDW 19.4 % (11.6-16.5) H 09/13/18 04:32 Plt Count 205 X10^3/uL (150.0-450.0) 09/13/18 04:32 MPV 8.3 fL (7.4-11.0) 09/13/18 04:32 Neut % (Auto) 66.8 % (42.0-75.0) 09/13/18 04:32 Lymph % (Auto) 16.9 % (21.0-51.0) L 09/13/18 04:32 Gregory % (Auto) 10.0 % (0.0-13.0) 09/13/18 04:32 Eos % (Auto) 5.7 % (0.9-2.9) H 09/13/18 04:32 Baso % (Auto) 0.6 % (0.2-1.0) 09/13/18 04:32 Neut # (Auto) 6.3 x10^3/uL (2.2-4.8) H 09/13/18 04:32 Lymph # (Auto) 1.6 X10^3/uL (1.3-2.9) 09/13/18 04:32 Gregory # (Auto) 0.9 x10^3/uL (0.3-0.8) H 09/13/18 04:32 Eos # (Auto) 0.5 x10^3/uL (0.0-0.2) H 09/13/18 04:32 Baso # (Auto) 0.1 X10^3/uL (0.0-0.1) 09/13/18 04:32 Absolute Nucleated RBC 0.0 /100WBC 09/13/18 04:32 Sodium 139 mmol/L (136-145) 09/13/18 04:32 Corrected Sodium TNP 09/13/18 04:32 Potassium 4.5 mmol/L (3.5-5.1) 09/13/18 04:32 Chloride 104 mmol/L (98-107) 09/13/18 04:32 Carbon Dioxide 28.5 mmol/L (21-32) 09/13/18 04:32 BUN 28 mg/dL (7-18) H 09/13/18 04:32 Creatinine 0.97 mg/dL (0.70-1.30) 09/13/18 04:32 Est GFR (MDRD) Af Amer > 60 (>60) 09/13/18 04:32 Est GFR (MDRD) Non-Af > 60 (>60) 09/13/18 04:32 Glucose 94 mg/dL (65-99) 09/13/18 04:32 Calcium 8.5 mg/dL (8.5-10.1) 09/13/18 04:32 Corrected Calcium 9.9 mg/dL (8.5-10.1) 09/13/18 04:32 Total Bilirubin 0.20 mg/dL (0.2-1.0) 09/13/18 04:32 AST 16 Units/L (15-37) 09/13/18 04:32 ALT 18 Units/L (12-78) 09/13/18 04:32 Alkaline Phosphatase 36 Units/L (46-116) L 09/13/18 04:32 Total Protein 6.1 g/dL (6.4-8.2) L 09/13/18 04:32 Albumin 2.3 g/dL (3.4-5.0) L 09/13/18 04:32 Globulin 3.8 g/dL (2.5-4.5) 09/13/18 04:32 Albumin/Globulin Ratio 0.6 Ratio (1.1-2.1) L 09/13/18 04:32 - Plan (1) Pneumonia Status: Acute Plan: CONTINUE PNEUMONIA PROTOCOL, IV ATBX. BLOOD AND SPUTUM CULTURES ON ADMISSION. RESP CONSULT, SUPPLEMENTAL O2. CXR Q AM, REPEAT AM CBC CMP (2) CHF (congestive heart failure) Status: Chronic Qualifiers: Qualified Code(s): I50.43 - Acute on chronic combined systolic (congestive) and diastolic (congestive) heart failure (3) COPD (chronic obstructive pulmonary disease) Status: Chronic (4) Hypertension Status: Chronic Qualifiers: Hypertension type: essential hypertension Qualified Code(s): I10 - Essential (primary) hypertension (5) GERD (gastroesophageal reflux disease) Status: Chronic (6) History of BPH Status: Chronic (7) Arthritis Status: Chronic
[2018-09-13] MEDS: LOVENOX INJ 40 MG SYR SC SCH (13:49)
[2018-09-13] MEDS: FLOMAX PO SCH (21:12)
[2018-09-13] MEDS: LIPITOR TAB 40 MG PO SCH (21:13)
[2018-09-13] MEDS: RESTORIL CAP 15 MG PO SCH (21:13)
[2018-09-13] MEDS: FLEXERIL TAB 10 MG PO SCH (21:13)
[2018-09-14] MEDS: DUONEB 0.5 MG/3 MG NEB SCH ×3 (01:32→08:24)
[2018-09-14] MEDS: NS 1/2 1000 ML IV 1,000 ML IV SCH (05:24)
[2018-09-14] MEDS: NORCO 10/325 TAB PO PRN (05:26)
[2018-09-14 06:11] LABS: BASOPHILS # (AUTO) 0.1 X10^3/uL (0.0-0.1); BASOPHILS % (AUTO) 0.7 % (0.2-1.0); EOSINOPHILS # (AUTO) 0.5 x10^3/uL (0.0-0.2); EOSINOPHILS % (AUTO) 5.2 % (0.9-2.9); HEMATOCRIT 31.2 % (42.0-54.0); HEMOGLOBIN 10.4 g/dL (13.5-18.0); LYMPHOCYTES # (AUTO) 1.7 X10^3/uL (1.3-2.9); LYMPHOCYTES % (AUTO) 17.8 % (21.0-51.0); MEAN CORPUSCULAR HEMOGLOBIN 28.1 pg (27.0-34.0); MEAN CORPUSCULAR HGB CONC 33.4 g/dL (33.0-35.0); MEAN CORPUSCULAR VOLUME 84.1 fL (80.0-100.0); MEAN PLATELET VOLUME 8.3 fL (7.4-11.0); MONOCYTES % (AUTO) 10.7 % (0.0-13.0); NEUTROPHILS # (AUTO) 6.2 x10^3/uL (2.2-4.8); NEUTROPHILS % (AUTO) 65.6 % (42.0-75.0); PLATELET COUNT 208 X10^3/uL (150.0-450.0); RED BLOOD COUNT 3.71 X10^6/uL (4.7-6.0); RED CELL DISTRIBUTION WIDTH 19.8 % (11.6-16.5); WHITE BLOOD COUNT 9.4 X10^3/uL (3.6-10.0)
[2018-09-14 06:21] LABS: ALANINE AMINOTRANSFERASE 17 Units/L (12-78); ALBUMIN 2.3 g/dL (3.4-5.0); ALKALINE PHOSPHATASE 35 Units/L (46-116); ASPARTATE AMINO TRANSFERASE 12 Units/L (15-37); BLOOD UREA NITROGEN 21 mg/dL (7-18); CALCIUM 8.3 mg/dL (8.5-10.1); CARBON DIOXIDE 30.1 mmol/L (21-32); CHLORIDE 103 mmol/L (98-107); COR CA(FOR HYPOALB) 9.7 mg/dL (8.5-10.1); CREATININE 0.95 mg/dL (0.70-1.30); SODIUM 140 mmol/L (136-145); TOTAL PROTEIN 6.1 g/dL (6.4-8.2); eGFR NON BLACK RACES > 60 (>60)
--- NOTE | 2018-09-14 07:27 | RAD ---
HISTORY: Chest congestion Study: Chest AP portable Comparison: 09/13/2018 Findings: The heart is within normal limits in size. The chevy are normal. Emphysematous changes are present in the upper lobes. Interstitial lung changes are present in the lower lobes. There is some pleuro parenchymal scarring in the right upper and left lower lobes. There is a slightly irregular nodule now visualized overlying the right 4th rib. Although this may represent scarring chest CT with contrast is recommended for further evaluation. The bony thorax is unremarkable. 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 Chest CT with contrast is recommended for further evaluation. Reported By:
[2018-09-14] MEDS: BROVANA IN SCH (08:24)
[2018-09-14] MEDS: PULMICORT NEB TX 0.5 MG NEB SCH (08:24)
[2018-09-14] MEDS: ALDACTONE TAB 25 MG PO SCH (08:57)
[2018-09-14] MEDS: ASPIRIN 81 MG CHEWTAB PO SCH (08:57)
[2018-09-14] MEDS: HEMOCYTE-PLUS PO SCH (08:58)
[2018-09-14] MEDS: COLACE CAP 100 MG PO SCH (08:58)
[2018-09-14] MEDS: PREDNISONE TAB 5 MG PO SCH (08:58)
[2018-09-14] MEDS: CELEXA PO SCH (08:58)
[2018-09-14] MEDS: COREG TAB 6.25 MG PO SCH (08:58)
[2018-09-14] MEDS: MILK OF MAGNESIA PO SCH (08:58)
[2018-09-14] MEDS: LEVAQUIN PREMIX IV 750 MG 750 MG/150 ML BAG IV SCH (08:58)
[2018-09-14] MEDS: ROBITUSSIN DM PO SCH (08:59)
[2018-09-14] MEDS: PriLOSEC PO SCH (08:59)
[2018-09-14] MEDS: LOVENOX INJ 40 MG SYR SC SCH (08:59)
[2018-09-14] MEDS: ZyrTEC TAB 10 MG PO SCH (09:00)
[2018-09-14] MEDS: THEO-DUR TAB 200 MG PO SCH (09:00)
[2018-09-14 13:21] VITALS: BP 124/58
== END 2018-09-14 14:00 | DRG 177 ==
LOC: MED/SURG 16:30
PROVIDERS: ADMIT Internal Medicine; ATTEND Internal Medicine
DX: M13.89 Other specified arthritis, multiple sites; K21.9 Gastro-esophageal reflux disease without esophagitis; R06.02 Shortness of breath; F32.89 Other specified depressive episodes; I10 Essential (primary) hypertension; F41.8 Other specified anxiety disorders; J44.9 Chronic obstructive pulmonary disease, unspecified; J15.212 Pneumonia due to Methicillin resistant Staphylococcus aureus; I25.10 Atherosclerotic heart disease of native coronary artery without angina pectoris; I50.43 Acute on chronic combined systolic (congestive) and diastolic (congestive) heart failure; E78.2 Mixed hyperlipidemia; R26.89 Other abnormalities of gait and mobility
CPT/HCPCS: 36415; 71010; 71045; 80053; 85025; 87040; 87070; 87077; 87185; 87186; 87205; 94640; 94669; 94760; 97110; 97163; 97166; 97530; A4222; J1650; J1956; J7512; J7620; J7626

== ENCOUNTER 2018-10-26 09:15 | Inpatient (IN) ==
--- NOTE | 2018-10-26 09:46 | RAD ---
History: Shortness of breath Study: AP chest Comparison: September 14, 2018 Findings: There is unchanged scarring in the right upper lobe. There is also mild scarring in the lingula. The heart size is normal. There is no edema or effusion or congestion evident. Impression: No acute disease Reported By:
[2018-10-26] MEDS ORDERED: DUONEB 0.5 MG/3 MG ONE (09:48)
[2018-10-26] MEDS ORDERED: DUONEB 0.5 MG/3 MG NEB ONE (09:52)
[2018-10-26 09:58] LABS: BASOPHILS % (AUTO) 0.1 % (0.2-1.0); EOSINOPHILS # (AUTO) 0.5 x10^3/uL (0.0-0.2); EOSINOPHILS % (AUTO) 3.2 % (0.9-2.9); HEMATOCRIT 33.4 % (42.0-54.0); LYMPHOCYTES # (AUTO) 0.6 X10^3/uL (1.3-2.9); LYMPHOCYTES % (AUTO) 4.1 % (21.0-51.0); MEAN CORPUSCULAR HEMOGLOBIN 28.6 pg (27.0-34.0); MEAN CORPUSCULAR VOLUME 86.6 fL (80.0-100.0); MEAN PLATELET VOLUME 8.1 fL (7.4-11.0); MONOCYTES % (AUTO) 6.9 % (0.0-13.0); NEUTROPHILS # (AUTO) 12.4 x10^3/uL (2.2-4.8); NEUTROPHILS % (AUTO) 85.7 % (42.0-75.0); PLATELET COUNT 230 X10^3/uL (150.0-450.0); RED BLOOD COUNT 3.86 X10^6/uL (4.7-6.0); RED CELL DISTRIBUTION WIDTH 22.3 % (11.6-16.5); WHITE BLOOD COUNT 14.5 X10^3/uL (3.6-10.0)
[2018-10-26 10:11] LABS: ALBUMIN 2.8 g/dL (3.4-5.0); CALCIUM 9.9 mg/dL (8.5-10.1); CARBON DIOXIDE 30.2 mmol/L (21-32); COR CA(FOR HYPOALB) 10.9 mg/dL (8.5-10.1); CREATININE 1.93 mg/dL (0.70-1.30); TOTAL PROTEIN 7.4 g/dL (6.4-8.2)
[2018-10-26 10:14] LABS: LACTIC ACID 0.9 mmol/L (0.4-2.0)
[2018-10-26 10:40] LABS: PLATELET MORPHOLOGY COMMENT NORMAL (NORMAL)
[2018-10-26 10:41] LABS: ANISOCYTOSIS 2+
[2018-10-26] MEDS ORDERED: ROCEPHIN VIAL 1 GRAM IVP ONE (12:29)
[2018-10-26] MEDS ORDERED: ROCEPHIN VIAL 1 GRAM ONE (12:30)
[2018-10-26] MEDS ORDERED: NS 1000 ML 1,000 ML ONE (13:34)
--- NOTE | 2018-10-26 13:39 | DR.SOBA ---
HPI Time Seen Time Seen by Provider: 10/26/18 10:13 Primary Care Physician Primary Care Physician: ab HPI Comment HPI Comment: [facility]IENT HERE FROM THE [facility]. HE STARTED GETTING WORSE 2 DAYS AGO. Complaints Chief Complaint Doctors Comments: INCREASING SOB AND GENERALIZE WEAKNESS THAT IS GETTING WORSE. Chief Complaint:: pt has been short of breath, coughing up thick sputum and very weak for a couple of days Reviewed Nurses Notes Reviewed: Yes Source History Provided: Patient and Snf Mode of Arrival Mode of Arrival: Stretcher Timing Onset of Chief Complaint: 10/24/18 Duration Duration: Days Context Onset:: At Rest PE Risk Factors:: Immobilization History of:: COPD Currently on:: Inhaled Bronchodilators Modifying Factors Worsens:: Exertion and Lying Flat Improves:: Rest and Sitting Up Associated Signs and Symptoms Associated Signs and Symptoms: Wheeze, Cough and Nasal Congestion If Chest Pain Quality: Pleuritic Location: Chest Wall If Cough Cough: Productive and Yellow PMH PMH Past Medical History: Yes Past Medical History: Anemia, Angina, Anxiety, Arthritis, CHF, COPD, Coronary Artery Disease, Depression, Dyslipidemia, GERD, Hypertension and SD Past Surgical History: Yes Surgical History: Ortho Surgery and Tonsillectomy Family History History of Family Medical Conditions: Yes Family Medical History: Cancer Social History Does patient currently use any type of tobacco product: No Have you used tobacco products in the last 12 months: No Type of Tobacco Use: None Does any household member use tobacco: No Alcohol Use: None Do you use any recreational Drugs:: No Lives With: Alone and Family Lives Where: Assisted Care infectious screening In the last 2 months have you had wt loss of >10#?: NO Have you had fever, night sweats or hemotysis?: No Have you traveled outside the country in the last 6 months?: No Isolation: Standard ROS Review of Systems Constitutional: Malaise, Weakness, Fatigue and Loss of Appetite; negative Fever Eyes: No Symptoms Reported ENTM: Nose Congestion Respiratoy: Productive Cough, Short of Breath and Wheezing Cardiovascular: Chest Pain Gastrointestinal/Abdominal: No Symptoms Reported Genitourinary: No Symptoms Reported Neurological: Weakness Musculoskeletal: Muscle Pain Integumentary: Change in Color Hematologic/Lymphatic: No Symptoms Reported, Anemia, Easy Bleeding and Easy Bruising Endocrine: Decreased Appetite Psychiatric: No Symptoms Reported All Other Systems: Reviewed and Negative PE Vital Signs Vitals: Temperature 98.7 F Pulse Rate [Left Brachial] 86 Pulse Rate 98 Respiratory Rate 20 Blood Pressure [Left Arm] 103/55 Blood Pressure [Right Arm] 159/71 Blood Pressure 149/69 O2 Sat by Pulse Oximetry 94 General General Appearance: Alert and In Distress Head Head Exam: Normal Inspection Eyes Eye exam: PERRL; negative Scleral Icterus and Conjunctival Injection ENT ENT Exam: Normal External Ear Exam Neck Neck Exam: Trachea Midline; negative Tenderness, Meningismus and Lymphadenopathy Chest Chest Inspection: Symmetric Chest Wall Rise Respiratory Respiratory Exam: Respiratory Distress Respiratory Exam: Bilateral: Wheezing and Bilateral: Rhonchi, Upper: Wheezing and Upper: Rhonchi and Lower: Wheezing and Lower: Rhonchi Cardiovascular Cardiovascular Exam: Regular Rate and Normal Rhythm Abdominal Exam Abdominal Exam: Normal Bowel Sounds and Soft; negative Tenderness Extremities Extremities Exam: Normal Capillary Refill Back Back Exam: Normal Inspection Psychiatric Psychiatric Exam: Anxious Skin Skin Exam: Erythema MDM Differential Diagnosis Differential Diagnosis: Bronchitis, CHF, COPD, Dysrhythmia, Hyponatremia, Mycardial Infarction, Pneumonia, Pulmonary embolism, Respiratory Insufficiency, Sinusitis and URI COURSE Treatment Treatment: SEE ORDERS. Education/Counseling Education/Counseling: Patient and Family ROR Labs Reviewed Laboratory Results Reviewed?: Yes Result Diagrams: 10/27/18 04:55 10/27/18 04:55 Laboratory: 10/26/18 10:11 Sputum - Endotracheal Wash - Final WBC 18.5 X10^3/uL (3.6-10.0) H 10/27/18 04:55 RBC 3.37 X10^6/uL (4.7-6.0) L 10/27/18 04:55 Hgb 9.7 g/dL (13.5-18.0) L 10/27/18 04:55 Hct 29.3 % (42.0-54.0) L 10/27/18 04:55 MCV 86.8 fL (80.0-100.0) 10/27/18 04:55 MCH 28.7 pg (27.0-34.0) 10/27/18 04:55 MCHC 33.0 g/dL (33.0-35.0) 10/27/18 04:55 RDW 22.6 % (11.6-16.5) H 10/27/18 04:55 Plt Count 200 X10^3/uL (150.0-450.0) 10/27/18 04:55 Plt Count Comment Adequate (ADEQUATE) 10/26/18 09:45 MPV 8.6 fL (7.4-11.0) 10/27/18 04:55 Neut % (Auto) 83.3 % (42.0-75.0) H 10/27/18 04:55 Lymph % (Auto) 4.2 % (21.0-51.0) L 10/27/18 04:55 [place] % (Auto) 11.6 % (0.0-13.0) 10/27/18 04:55 Eos % (Auto) 0.7 % (0.9-2.9) L 10/27/18 04:55 Baso % (Auto) 0.2 % (0.2-1.0) 10/27/18 04:55 Neut # (Auto) 15.4 x10^3/uL (2.2-4.8) H 10/27/18 04:55 Lymph # (Auto) 0.8 X10^3/uL (1.3-2.9) L 10/27/18 04:55 [place] # (Auto) 2.1 x10^3/uL (0.3-0.8) H 10/27/18 04:55 Eos # (Auto) 0.1 x10^3/uL (0.0-0.2) 10/27/18 04:55 Baso # (Auto) 0.0 X10^3/uL (0.0-0.1) 10/27/18 04:55 Absolute Nucleated RBC 0.0 /100WBC 10/27/18 04:55 Plt Morphology Comment Normal (NORMAL) 10/26/18 09:45 RBC Morphology Abnormal (NORMAL) 10/26/18 09:45 Anisocytosis 2+ A 10/26/18 09:45 D-Dimer 2290 ng/mL (0-400) H* 10/26/18 09:45 Sodium 139 mmol/L (136-145) 10/27/18 04:55 Corrected Sodium 140 mmol/L (136-145) 10/27/18 04:55 Potassium 5.4 mmol/L (3.5-5.1) H 10/27/18 04:55 Chloride 102 mmol/L (98-107) 10/27/18 04:55 Carbon Dioxide 29.7 mmol/L (21-32) 10/27/18 04:55 BUN 88 mg/dL (7-18) H 10/27/18 04:55 Creatinine 2.11 mg/dL (0.70-1.30) H 10/27/18 04:55 Est GFR (MDRD) Af Amer 39 (>60) L 10/27/18 04:55 Est GFR (MDRD) Non-Af 33 (>60) L 10/27/18 04:55 Glucose 139 mg/dL (65-99) H 10/27/18 04:55 Lactic Acid 0.9 mmol/L (0.4-2.0) 10/26/18 09:45 Calcium 9.0 mg/dL (8.5-10.1) 10/27/18 04:55 Corrected Calcium 10.5 mg/dL (8.5-10.1) H 10/27/18 04:55 Magnesium 2.4 mg/dL (1.7-2.9) 10/27/18 04:55 Total Bilirubin 0.40 mg/dL (0.2-1.0) 10/27/18 04:55 AST 19 Units/L (15-37) 10/27/18 04:55 ALT 17 Units/L (12-78) 10/27/18 04:55 Alkaline Phosphatase 58 Units/L (46-116) 10/27/18 04:55 Creatine Kinase 27 Units/L (39-308) L 10/26/18 20:13 CK-MB (CK-2) 1.2 ng/mL (0-4.0) 10/26/18 20:13 CK/CKMB % Calc 4.4 % (<4) 10/26/18 20:13 Troponin I < 0.02 ng/mL (0-1.5) 10/26/18 20:13 Total Protein 6.2 g/dL (6.4-8.2) L 10/27/18 04:55 Albumin 2.1 g/dL (3.4-5.0) L 10/27/18 04:55 Globulin 4.1 g/dL (2.5-4.5) 10/27/18 04:55 Albumin/Globulin Ratio 0.5 Ratio (1.1-2.1) L 10/27/18 04:55 Triglycerides 289 mg/dL (0-150) H 10/27/18 04:55 Cholesterol 76 mg/dL (0-200) 10/27/18 04:55 LDL Cholesterol, Calc 11 mg/dL (0-100) 10/27/18 04:55 HDL Cholesterol 7 mg/dL (40-60) L 10/27/18 04:55 Cholesterol/HDL Ratio 10.9 (0.0-5.0) H 10/27/18 04:55 XRAY XRAY Interpreted by: Radiologist XRAY Findings: REPORT NOTED. EKG Van: Normal Rhythm: NSR
[2018-10-26] MEDS ORDERED: NS 1000 ML 1,000 ML IV SCH (14:00)
[2018-10-26] MEDS ORDERED: NAPROSYN PO SCH (15:28)
[2018-10-26] MEDS ORDERED: LASIX PO SCH (15:28)
[2018-10-26] MEDS ORDERED: CHRONULAC PO PRN (15:28)
[2018-10-26 16:21] VITALS: BMI 23.5
[2018-10-26 16:26] LABS: CKMB % 5.4 % (<4); CREATINE KINASE 24 Units/L (39-308); CREATINE KINASE MB 1.3 ng/mL (0-4.0); TROPONIN I < 0.02 ng/mL (0-1.5)
[2018-10-26] MEDS: DUONEB 0.5 MG/3 MG NEB SCH ×2 (17:33→20:34)
--- NOTE | 2018-10-26 17:35 | DR.H&P ---
H&P - History & Physical for Day of: H&P Date: 10/26/18 - Chief Complaint Chief Complaint: CCC, SOB, WHEEZING - History of Present Illness History of Present Illness: 77 WM ER ADMISSION WITH CO SOB. PT HAS HX OF RESP FAILURE AND ON CONTINUOUS O2. 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 PT HAS PMH COPD, RESP FAILURE, HTN, OA, CAD, DEMENTIA. PT ADMITTED FOR TREATMENT OF ACUTE RESP ILLNESS AND RENAL INSUFFICIENCY. - Past Medical History Past Medical History: Angina, [place], Coronary Artery Disease, Hypertension, Dyslipidemia, Depression, Anxiety, Anemia, COPD, GERD, Arthritis, CHF Additional Medical History: Hx BPH, Degenerative Disc Disease, Hx Skin Cancer - Past Surgical History Surgical History: Ortho Surgery, Tonsillectomy, Other Additional Surgical History: 2 Inguinal Hernia Repairs, 1 Umbilical Hernia Repair - Family History Family Medical History: Cancer - Social History Does patient currently use any type of tobacco product: No Have you used tobacco products in the last 12 months: No Type of Tobacco Use: None Does any household member use tobacco: No Alcohol Use: None Drug Use: None - Medications Home Medications: penicillin G Adverse Reaction (Verified 02/28/18 15:00) CONTINUE taking the following medications cetirizine 10 mg PO DAILY 10/26/18 [History] - Review of Systems Constitutional: Weakness Eyes: No Symptoms Reported ENT: No Symptoms Reported Respiratory: Cough, SOB with Excertion, Wheezing Cardiovascular: No Symptoms Reported Gastrointestinal: No Symptoms Reported Genitourinary: No Symptoms Reported Musculoskeletal: No Symptoms Reported Skin: No Symptoms Reported Neurological: No Symptoms Reported - Physical Exam Vital Signs: Temperature 98.1 F Pulse Rate [Left Brachial] 98 Pulse Rate 94 Respiratory Rate 20 Blood Pressure [Left Arm] 122/73 Blood Pressure [Right Arm] 159/71 Blood Pressure 149/69 O2 Sat by Pulse Oximetry 95 Oriented: Normal Eyes: Normal Ear: Normal Nose: Normal Throat: Normal Respiratory: Diminished Throughout, Wheezes Throughout Cardiovascular: Tachycardia : Normal Auscultation: Bowel Sounds: Normal Palpation: Normal Tenderness: Normal Skin: Decreased Turgur, Wound (POSTERIOR SCALP) Musculoskeletal: Right, Left, Leg, Back:Lumbar, Motor Deficit, Sensory Deficit, Instability, Crepitance Psychiatric: Anxiety Affect: Anxious Speech Pattern: Clear, Appropriate - Assessment/Plan (1) SOB (shortness of breath) Status: Acute Plan: ADMIT FOR TREATMENT OF RESP DISTRESS, IV ATBX. RESP THERAPY, SUPPLEMENTAL O2. ABG ON ADMISSION, VERIFY HOME MEDICATIONS. GENTLE IV HYDRATION, I &OS (2) CHF (congestive heart failure) Qualifiers: Qualified Code(s): I50.43 - Acute on chronic combined systolic (congestive) and diastolic (congestive) heart failure Status: Chronic (3) COPD (chronic obstructive pulmonary disease) Status: Chronic (4) Hypertension Qualifiers: Hypertension type: essential hypertension Qualified Code(s): I10 - Essential (primary) hypertension Status: Chronic (5) GERD (gastroesophageal reflux disease) Status: Chronic (6) History of BPH Status: Chronic (7) Arthritis Status: Chronic (8) History of cardiac arrhythmia Status: Chronic - Allergies Allergies/Adverse Reactions: Allergies Allergy/AdvReac Type Severity Reaction Status Date / Time penicillin G AdvReac Verified 02/28/18 15:00
[2018-10-26] MEDS: PULMICORT NEB TX 0.5 MG NEB SCH (20:35)
[2018-10-26 20:45] LABS: CKMB % 4.4 % (<4); CREATINE KINASE 27 Units/L (39-308); CREATINE KINASE MB 1.2 ng/mL (0-4.0); TROPONIN I < 0.02 ng/mL (0-1.5)
[2018-10-26] MEDS: NORCO 10/325 TAB PO PRN (20:55)
[2018-10-26] MEDS: ALDACTONE TAB 25 MG PO SCH (20:56)
[2018-10-26] MEDS: LOVENOX INJ 40 MG SYR SC SCH (20:56)
[2018-10-26] MEDS: FLEXERIL TAB 10 MG PO SCH (20:57)
[2018-10-26] MEDS: COLACE CAP 100 MG PO SCH (20:57)
[2018-10-26] MEDS: FLOMAX PO SCH (20:58)
[2018-10-26] MEDS: LIPITOR TAB 40 MG PO SCH (20:58)
[2018-10-26] MEDS: THEO-DUR TAB 200 MG PO SCH (20:59)
[2018-10-26] MEDS: PriLOSEC PO SCH (20:59)
[2018-10-26] MEDS: RESTORIL CAP 15 MG PO SCH (20:59)
[2018-10-26] MEDS: COREG TAB 6.25 MG PO SCH (21:06)
[2018-10-27] MEDS: DUONEB 0.5 MG/3 MG NEB SCH ×6 (01:07→20:08)
[2018-10-27 05:21] LABS: BASOPHILS % (AUTO) 0.2 % (0.2-1.0); EOSINOPHILS # (AUTO) 0.1 x10^3/uL (0.0-0.2); EOSINOPHILS % (AUTO) 0.7 % (0.9-2.9); HEMATOCRIT 29.3 % (42.0-54.0); HEMOGLOBIN 9.7 g/dL (13.5-18.0); LYMPHOCYTES # (AUTO) 0.8 X10^3/uL (1.3-2.9); LYMPHOCYTES % (AUTO) 4.2 % (21.0-51.0); MEAN CORPUSCULAR HEMOGLOBIN 28.7 pg (27.0-34.0); MEAN CORPUSCULAR VOLUME 86.8 fL (80.0-100.0); MEAN PLATELET VOLUME 8.6 fL (7.4-11.0); MONOCYTES # (AUTO) 2.1 x10^3/uL (0.3-0.8); MONOCYTES % (AUTO) 11.6 % (0.0-13.0); NEUTROPHILS # (AUTO) 15.4 x10^3/uL (2.2-4.8); NEUTROPHILS % (AUTO) 83.3 % (42.0-75.0); PLATELET COUNT 200 X10^3/uL (150.0-450.0); RED BLOOD COUNT 3.37 X10^6/uL (4.7-6.0); RED CELL DISTRIBUTION WIDTH 22.6 % (11.6-16.5); WHITE BLOOD COUNT 18.5 X10^3/uL (3.6-10.0)
[2018-10-27 05:46] LABS: ALBUMIN 2.1 g/dL (3.4-5.0); CARBON DIOXIDE 29.7 mmol/L (21-32); CHOL/HDL RATIO 10.9 (0.0-5.0); COR CA(FOR HYPOALB) 10.5 mg/dL (8.5-10.1); CREATININE 2.11 mg/dL (0.70-1.30); MAGNESIUM 2.4 mg/dL (1.7-2.9); TOTAL PROTEIN 6.2 g/dL (6.4-8.2)
[2018-10-27 06:04] LABS: BILIRUBIN,URINE NEGATIVE (NEGATIVE); BLOOD/HEMOGLOBIN,URINE 4+ (NEGATIVE); GLUCOSE, URINE NEGATIVE (NEGATIVE); KETONES,URINE NEGATIVE (NEGATIVE); LEUKOCYTE ESTERASE ,URINE 3+ (NEGATIVE); NITRITES,URINE NEGATIVE (NEGATIVE); PROTEIN,URINE 3+ (NEGATIVE); UROBILINOGEN,URINE NORMAL (NORMAL)
[2018-10-27 06:08] LABS: APPEARANCE,URINE CLOUDY (CLEAR); COLOR,URINE YELLOW (YELLOW)
[2018-10-27 06:10] LABS: BACTERIA,URINE 4+ /HPF (NEGATIVE); SQUAMOUS EPITHELIAL CELL,UR NEGATIVE /HPF (NEGATIVE)
[2018-10-27 06:34] LABS: ANISOCYTOSIS 1+; HYPOCHROMASIA SLIGHT; PLATELET MORPHOLOGY COMMENT NORMAL (NORMAL)
[2018-10-27] MEDS: PULMICORT NEB TX 0.5 MG NEB SCH ×2 (08:26→20:08)
[2018-10-27] MEDS ORDERED: ROCEPHIN VIAL 1 GRAM IVP SCH (09:00)
[2018-10-27] MEDS ORDERED: THEOPHYLLINE 200 MG PO SCH (09:00)
[2018-10-27] MEDS: LOVENOX INJ 40 MG SYR SC SCH (09:15)
[2018-10-27] MEDS: ASPIRIN 81 MG CHEWTAB PO SCH (09:16)
[2018-10-27] MEDS: PREDNISONE TAB 5 MG PO SCH (09:17)
[2018-10-27] MEDS: COREG TAB 6.25 MG PO SCH ×2 (09:17→21:17)
[2018-10-27] MEDS: HEMOCYTE-PLUS PO SCH (09:17)
[2018-10-27] MEDS: PriLOSEC PO SCH ×2 (09:17→21:19)
[2018-10-27] MEDS: THEO-DUR TAB 200 MG PO SCH (09:17)
[2018-10-27] MEDS: ALDACTONE TAB 25 MG PO SCH ×2 (09:17→21:17)
[2018-10-27] MEDS: COLACE CAP 100 MG PO SCH ×2 (09:17→21:17)
[2018-10-27] MEDS: NS 1000 ML 1,000 ML IV SCH ×2 (09:26→22:50)
[2018-10-27] MEDS ORDERED: KAYEXALATE SUSP PO ONE (12:16)
--- NOTE | 2018-10-27 15:45 | PCM.PROG ---
Progress Note - Progress Note for Day of Date of Exam: 10/27/18 - Subjective Subjective: 77 WM ER ADMISSION WITH RESPIRATORY DISTRESS WITH HX OF COPD. PT HAS BLOOD CUTLURES COLLECTED ON ADMISSION, WITH ONE CULTURE +. REPEAT BC ORDERED THIS AM. PT HAD LOW GRADE TEMP <101. PT CO CONSTIPATION AND DECREASED URINE OUTPT. PT LASIX ON HOLD DUE TO ACUTE RENTAL INSUFFICIENCY. PT K 5.4 BUN 88, CREAT 2.11 THIS AM. PLAN TO INCREASED IV FLUIDS TO 75CC/HR X 1 LITER THEN DECREASE TO 50CC/HR. ENCOURAGE ORAL INTAKE, KAYEXALATE X1. REPEAT AM LABS. PT DENIES CHEST PAIN. - Past Medical Family Social History Past Med/Fam/Surg Hx: No changes since H&P Allergies: Allergies penicillin G Adverse Reaction (Verified 02/28/18 15:00) - Review of Systems ROS: No change since H&P - Vital Signs and I&O's Vital Signs: Temperature 98.7 F Pulse Rate [Left Brachial] 86 Pulse Rate 86 Respiratory Rate 20 Blood Pressure [Left Arm] 103/55 Blood Pressure [Right Arm] 159/71 Blood Pressure 149/69 O2 Sat by Pulse Oximetry 94 Intake and Output: Intake & Output 10/25/18 10/26/18 10/27/18 10/28/18 11:59 11:59 11:59 11:59 Intake Total 720 / 720 Balance 720 / 720 - Physical Exam Oriented: Normal Eyes: Normal Ear: Normal Nose: Normal Throat: Normal Cardiovascular: Tachycardia : Normal Auscultation: Bowel Sounds: Normal Tenderness: Normal Skin: Decreased Turgur, Wound (POSTERIOR SCALP) Musculoskeletal: Right, Left, Leg, Back:Lumbar, Motor Deficit, Sensory Deficit, Instability, Crepitance Psychiatric: Anxiety Affect: Anxious Speech Pattern: Clear, Appropriate - Laboratory and Diagnostics Result Diagrams: 10/27/18 04:55 10/27/18 04:55 Labs: 10/26/18 09:39 Blood Blood Culture - Preliminary 10/26/18 10:11 Sputum - Endotracheal Wash Sputum Culture - Preliminary 10/26/18 10:11 Sputum - Endotracheal Wash - Final Laboratory WBC 18.5 X10^3/uL (3.6-10.0) H 10/27/18 04:55 RBC 3.37 X10^6/uL (4.7-6.0) L 10/27/18 04:55 Hgb 9.7 g/dL (13.5-18.0) L 10/27/18 04:55 Hct 29.3 % (42.0-54.0) L 10/27/18 04:55 MCV 86.8 fL (80.0-100.0) 10/27/18 04:55 MCH 28.7 pg (27.0-34.0) 10/27/18 04:55 MCHC 33.0 g/dL (33.0-35.0) 10/27/18 04:55 RDW 22.6 % (11.6-16.5) H 10/27/18 04:55 Plt Count 200 X10^3/uL (150.0-450.0) 10/27/18 04:55 Plt Count Comment Adequate (ADEQUATE) 10/27/18 04:55 MPV 8.6 fL (7.4-11.0) 10/27/18 04:55 Neut % (Auto) 83.3 % (42.0-75.0) H 10/27/18 04:55 Lymph % (Auto) 4.2 % (21.0-51.0) L 10/27/18 04:55 [place] % (Auto) 11.6 % (0.0-13.0) 10/27/18 04:55 Eos % (Auto) 0.7 % (0.9-2.9) L 10/27/18 04:55 Baso % (Auto) 0.2 % (0.2-1.0) 10/27/18 04:55 Neut # (Auto) 15.4 x10^3/uL (2.2-4.8) H 10/27/18 04:55 Lymph # (Auto) 0.8 X10^3/uL (1.3-2.9) L 10/27/18 04:55 [place] # (Auto) 2.1 x10^3/uL (0.3-0.8) H 10/27/18 04:55 Eos # (Auto) 0.1 x10^3/uL (0.0-0.2) 10/27/18 04:55 Baso # (Auto) 0.0 X10^3/uL (0.0-0.1) 10/27/18 04:55 Absolute Nucleated RBC 0.0 /100WBC 10/27/18 04:55 Plt Morphology Comment Normal (NORMAL) 10/27/18 04:55 RBC Morphology Abnormal (NORMAL) 10/27/18 04:55 Hypochromasia Slight A 10/27/18 04:55 Anisocytosis 1+ A 10/27/18 04:55 D-Dimer 2290 ng/mL (0-400) H* 10/26/18 09:45 Sodium 139 mmol/L (136-145) 10/27/18 04:55 Corrected Sodium 140 mmol/L (136-145) 10/27/18 04:55 Potassium 5.4 mmol/L (3.5-5.1) H 10/27/18 04:55 Chloride 102 mmol/L (98-107) 10/27/18 04:55 Carbon Dioxide 29.7 mmol/L (21-32) 10/27/18 04:55 BUN 88 mg/dL (7-18) H 10/27/18 04:55 Creatinine 2.11 mg/dL (0.70-1.30) H 10/27/18 04:55 Est GFR (MDRD) Af Amer 39 (>60) L 10/27/18 04:55 Est GFR (MDRD) Non-Af 33 (>60) L 10/27/18 04:55 Glucose 139 mg/dL (65-99) H 10/27/18 04:55 Lactic Acid 0.9 mmol/L (0.4-2.0) 10/26/18 09:45 Calcium 9.0 mg/dL (8.5-10.1) 10/27/18 04:55 Corrected Calcium 10.5 mg/dL (8.5-10.1) H 10/27/18 04:55 Magnesium 2.4 mg/dL (1.7-2.9) 10/27/18 04:55 Total Bilirubin 0.40 mg/dL (0.2-1.0) 10/27/18 04:55 AST 19 Units/L (15-37) 10/27/18 04:55 ALT 17 Units/L (12-78) 10/27/18 04:55 Alkaline Phosphatase 58 Units/L (46-116) 10/27/18 04:55 Creatine Kinase 27 Units/L (39-308) L 10/26/18 20:13 CK-MB (CK-2) 1.2 ng/mL (0-4.0) 10/26/18 20:13 CK/CKMB % Calc 4.4 % (<4) 10/26/18 20:13 Troponin I < 0.02 ng/mL (0-1.5) 10/26/18 20:13 Total Protein 6.2 g/dL (6.4-8.2) L 10/27/18 04:55 Albumin 2.1 g/dL (3.4-5.0) L 10/27/18 04:55 Globulin 4.1 g/dL (2.5-4.5) 10/27/18 04:55 Albumin/Globulin Ratio 0.5 Ratio (1.1-2.1) L 10/27/18 04:55 Triglycerides 289 mg/dL (0-150) H 10/27/18 04:55 Cholesterol 76 mg/dL (0-200) 10/27/18 04:55 LDL Cholesterol, Calc 11 mg/dL (0-100) 10/27/18 04:55 HDL Cholesterol 7 mg/dL (40-60) L 10/27/18 04:55 Cholesterol/HDL Ratio 10.9 (0.0-5.0) H 10/27/18 04:55 Specimen Type Catherized urine 10/27/18 05:53 Urine Color Yellow (YELLOW) 10/27/18 05:53 Urine Appearance Cloudy (CLEAR) 10/27/18 05:53 Urine pH 6.0 (5.0 - 8.0) 10/27/18 05:53 Ur Specific [place] 1.010 (1.000-1.030) 10/27/18 05:53 Urine Protein 3+ (NEGATIVE) 10/27/18 05:53 Urine Glucose (UA) Negative (NEGATIVE) 10/27/18 05:53 Urine Ketones Negative (NEGATIVE) 10/27/18 05:53 Urine Occult Blood 4+ (NEGATIVE) 10/27/18 05:53 Urine Nitrite Negative (NEGATIVE) 10/27/18 05:53 Urine Bilirubin Negative (NEGATIVE) 10/27/18 05:53 Urine Urobilinogen Normal (NORMAL) 10/27/18 05:53 Ur Leukocyte Esterase 3+ (NEGATIVE) 10/27/18 05:53 Urine RBC 3-5 /HPF (NONE SEEN) 10/27/18 05:53 Urine WBC 10-20 /HPF (NONE SEEN) 10/27/18 05:53 Ur Squamous Epith Cells Negative /HPF (NEGATIVE) 10/27/18 05:53 Urine Bacteria 4+ /HPF (NEGATIVE) 10/27/18 05:53 Ur Culture Indicated? Yes/culture set up 10/27/18 05:53 - Plan (1) SOB (shortness of breath) Status: Acute Plan: ADMIT FOR TREATMENT OF RESP DISTRESS, IV ATBX. RESP THERAPY, SUPPLEMENTAL O2. ABG ON ADMISSION, VERIFY HOME MEDICATIONS. GENTLE IV HYDRATION, I &OS (2) CHF (congestive heart failure) Status: Chronic Qualifiers: Qualified Code(s): I50.43 - Acute on chronic combined systolic (congestive) and diastolic (congestive) heart failure (3) COPD (chronic obstructive pulmonary disease) Status: Chronic (4) Hypertension Status: Chronic Qualifiers: Hypertension type: essential hypertension Qualified Code(s): I10 - Essential (primary) hypertension (5) GERD (gastroesophageal reflux disease) Status: Chronic (6) History of BPH Status: Chronic (7) Arthritis Status: Chronic (8) History of cardiac arrhythmia Status: Chronic (9) MRSA cellulitis Status: Acute Plan: WOUND CARE, CONTACT PRECAUTIONS. PT COMPLETED > 10 DAYS BACTRIM PO STARTED ON 10/12 (10) Bacteremia Status: Acute Plan: REPEAT BC, IV ATBX
[2018-10-27] MEDS ORDERED: BUTT CREAM (COMPOUND) TOP PRN (15:47)
[2018-10-27] MEDS ORDERED: KAYEXALATE SUSP PO NR (16:00)
[2018-10-27] MEDS: NORCO 10/325 TAB PO PRN ×2 (16:01→22:15)
[2018-10-27 18:31] LABS: BILIRUBIN,URINE NEGATIVE (NEGATIVE); BLOOD/HEMOGLOBIN,URINE 5+ (NEGATIVE); GLUCOSE, URINE NEGATIVE (NEGATIVE); KETONES,URINE 1+ (NEGATIVE); LEUKOCYTE ESTERASE ,URINE 3+ (NEGATIVE); NITRITES,URINE NEGATIVE (NEGATIVE); PROTEIN,URINE 3+ (NEGATIVE); UROBILINOGEN,URINE NORMAL (NORMAL)
[2018-10-27 18:38] LABS: APPEARANCE,URINE TURBID (CLEAR); COLOR,URINE YELLOW (YELLOW)
[2018-10-27 18:59] LABS: AMORPHOUS SEDIMENT,UR 1+ /HPF (NEGATIVE); BACTERIA,URINE 4+ /HPF (NEGATIVE); GRANULAR CASTS,URINE FEW /LPF (NEGATIVE); HYALINE CASTS, URINE RARE /LPF (NEGATIVE); SQUAMOUS EPITHELIAL CELL,UR RARE /HPF (NEGATIVE)
[2018-10-27] MEDS: FLOMAX PO SCH (21:18)
[2018-10-27] MEDS: FLEXERIL TAB 10 MG PO SCH (21:18)
[2018-10-27] MEDS: RESTORIL CAP 15 MG PO SCH (21:18)
[2018-10-28] MEDS: DUONEB 0.5 MG/3 MG NEB SCH ×6 (00:13→20:21)
[2018-10-28 06:05] LABS: ALANINE AMINOTRANSFERASE 14 Units/L (12-78); ALBUMIN 1.9 g/dL (3.4-5.0); ALKALINE PHOSPHATASE 57 Units/L (46-116); ASPARTATE AMINO TRANSFERASE 12 Units/L (15-37); BLOOD UREA NITROGEN 66 mg/dL (7-18); CALCIUM 8.6 mg/dL (8.5-10.1); CARBON DIOXIDE 27.4 mmol/L (21-32); CHLORIDE 107 mmol/L (98-107); COR CA(FOR HYPOALB) 10.3 mg/dL (8.5-10.1); SODIUM 143 mmol/L (136-145); eGFR NON BLACK RACES 48 (>60)
[2018-10-28 06:08] LABS: BASOPHILS % (AUTO) 0.2 % (0.2-1.0); EOSINOPHILS # (AUTO) 0.4 x10^3/uL (0.0-0.2); EOSINOPHILS % (AUTO) 2.8 % (0.9-2.9); HEMATOCRIT 27.3 % (42.0-54.0); HEMOGLOBIN 8.9 g/dL (13.5-18.0); LYMPHOCYTES # (AUTO) 0.9 X10^3/uL (1.3-2.9); LYMPHOCYTES % (AUTO) 5.9 % (21.0-51.0); MEAN CORPUSCULAR HEMOGLOBIN 28.5 pg (27.0-34.0); MEAN CORPUSCULAR HGB CONC 32.5 g/dL (33.0-35.0); MEAN CORPUSCULAR VOLUME 87.7 fL (80.0-100.0); MEAN PLATELET VOLUME 8.3 fL (7.4-11.0); MONOCYTES # (AUTO) 1.7 x10^3/uL (0.3-0.8); MONOCYTES % (AUTO) 11.1 % (0.0-13.0); NEUTROPHILS # (AUTO) 12.3 x10^3/uL (2.2-4.8); PLATELET COUNT 194 X10^3/uL (150.0-450.0); RED BLOOD COUNT 3.11 X10^6/uL (4.7-6.0); RED CELL DISTRIBUTION WIDTH 21.8 % (11.6-16.5); WHITE BLOOD COUNT 15.4 X10^3/uL (3.6-10.0)
[2018-10-28 06:30] LABS: ANISOCYTOSIS 1+; PLATELET MORPHOLOGY COMMENT NORMAL (NORMAL)
--- NOTE | 2018-10-28 07:32 | RAD ---
Examination: AP chest History: Bronchitis Comparison 10/26/2018 Findings: Continued normal heart size. Stable areas of bilateral interstitial distortion and fibrotic scarring. No developing consolidation, pulmonary edema or pleural fluid. Impression: Stable appearance of described chronic pulmonary findings. No interval change or acute abnormality. Reported By:
[2018-10-28] MEDS: PULMICORT NEB TX 0.5 MG NEB SCH ×2 (08:45→20:21)
[2018-10-28] MEDS: COREG TAB 6.25 MG PO SCH ×2 (09:56→21:44)
[2018-10-28] MEDS: PREDNISONE TAB 5 MG PO SCH (09:56)
[2018-10-28] MEDS: HEMOCYTE-PLUS PO SCH (09:56)
[2018-10-28] MEDS: COLACE CAP 100 MG PO SCH ×2 (09:56→21:44)
[2018-10-28] MEDS: FORTAZ or TAZICEF VIAL INJ IVP SCH ×2 (09:56→21:43)
[2018-10-28] MEDS: ALDACTONE TAB 25 MG PO SCH ×2 (09:56→21:44)
[2018-10-28] MEDS: PriLOSEC PO SCH ×2 (09:56→21:43)
[2018-10-28] MEDS: ASPIRIN 81 MG CHEWTAB PO SCH (09:56)
[2018-10-28] MEDS: THEO-DUR TAB 200 MG PO SCH (09:56)
[2018-10-28] MEDS: LOVENOX INJ 40 MG SYR SC SCH (09:57)
[2018-10-28] MEDS: NORCO 10/325 TAB PO PRN (15:30)
[2018-10-28] MEDS: RESTORIL CAP 15 MG PO SCH (21:43)
[2018-10-28] MEDS: LIPITOR TAB 40 MG PO SCH ×3 (21:43→21:47)
[2018-10-28] MEDS: FLEXERIL TAB 10 MG PO SCH (21:44)
[2018-10-28] MEDS: FLOMAX PO SCH (21:44)
[2018-10-28] MEDS: NS 1000 ML 1,000 ML IV SCH (22:32)
[2018-10-29] MEDS: DUONEB 0.5 MG/3 MG NEB SCH ×6 (00:27→20:20)
[2018-10-29 06:07] LABS: BASOPHILS % (AUTO) 0.3 % (0.2-1.0); EOSINOPHILS # (AUTO) 0.4 x10^3/uL (0.0-0.2); EOSINOPHILS % (AUTO) 3.6 % (0.9-2.9); HEMATOCRIT 28.6 % (42.0-54.0); HEMOGLOBIN 9.4 g/dL (13.5-18.0); LYMPHOCYTES # (AUTO) 0.9 X10^3/uL (1.3-2.9); LYMPHOCYTES % (AUTO) 7.7 % (21.0-51.0); MEAN CORPUSCULAR HEMOGLOBIN 28.8 pg (27.0-34.0); MEAN CORPUSCULAR HGB CONC 32.9 g/dL (33.0-35.0); MEAN CORPUSCULAR VOLUME 87.6 fL (80.0-100.0); MEAN PLATELET VOLUME 8.3 fL (7.4-11.0); MONOCYTES # (AUTO) 1.3 x10^3/uL (0.3-0.8); MONOCYTES % (AUTO) 10.2 % (0.0-13.0); NEUTROPHILS # (AUTO) 9.6 x10^3/uL (2.2-4.8); NEUTROPHILS % (AUTO) 78.2 % (42.0-75.0); PLATELET COUNT 203 X10^3/uL (150.0-450.0); RED BLOOD COUNT 3.27 X10^6/uL (4.7-6.0); RED CELL DISTRIBUTION WIDTH 22.5 % (11.6-16.5); WHITE BLOOD COUNT 12.3 X10^3/uL (3.6-10.0)
[2018-10-29 06:18] LABS: ALANINE AMINOTRANSFERASE 14 Units/L (12-78); ALBUMIN 1.9 g/dL (3.4-5.0); ALKALINE PHOSPHATASE 54 Units/L (46-116); ASPARTATE AMINO TRANSFERASE 11 Units/L (15-37); BLOOD UREA NITROGEN 37 mg/dL (7-18); CALCIUM 8.6 mg/dL (8.5-10.1); CARBON DIOXIDE 27.3 mmol/L (21-32); CHLORIDE 109 mmol/L (98-107); COR CA(FOR HYPOALB) 10.3 mg/dL (8.5-10.1); CREATININE 1.07 mg/dL (0.70-1.30); SODIUM 144 mmol/L (136-145); TOTAL PROTEIN 6.1 g/dL (6.4-8.2); eGFR NON BLACK RACES > 60 (>60)
[2018-10-29 06:25] LABS: ANISOCYTOSIS 2+; PLATELET MORPHOLOGY COMMENT NORMAL (NORMAL)
[2018-10-29] MEDS: NORCO 10/325 TAB PO PRN ×3 (08:17→21:30)
[2018-10-29] MEDS: COLACE CAP 100 MG PO SCH ×2 (08:40→21:25)
[2018-10-29] MEDS: FORTAZ or TAZICEF VIAL INJ IVP SCH ×2 (08:40→21:25)
[2018-10-29] MEDS: ASPIRIN 81 MG CHEWTAB PO SCH (08:41)
[2018-10-29] MEDS: PriLOSEC PO SCH ×2 (08:41→21:26)
[2018-10-29] MEDS: ALDACTONE TAB 25 MG PO SCH ×2 (08:41→21:26)
[2018-10-29] MEDS: PREDNISONE TAB 5 MG PO SCH (08:41)
[2018-10-29] MEDS: HEMOCYTE-PLUS PO SCH (08:41)
[2018-10-29] MEDS: COREG TAB 6.25 MG PO SCH ×2 (08:41→21:26)
[2018-10-29] MEDS: THEO-DUR TAB 200 MG PO SCH (08:41)
[2018-10-29] MEDS: LOVENOX INJ 40 MG SYR SC SCH (08:43)
[2018-10-29] MEDS: PULMICORT NEB TX 0.5 MG NEB SCH ×2 (08:53→20:20)
[2018-10-29] MEDS: NS 1000 ML 1,000 ML IV SCH (12:40)
--- NOTE | 2018-10-29 20:13 | PCM.PROG ---
Progress Note - Progress Note for Day of Date of Exam: 10/28/18 - Subjective Subjective: 77 WM PATIENT OF . HE WAS AN ER ADMISSION ON 10/26 WITH RESPIRATORY DISTRESS WITH HX OF COPD. BLOOD CULTURES WERE REPORTED TO BE POSITIVE. OFFICIAL RESULTS PENDING. BLOOD CULTURES WERE ALSO REPEATED. URINE CULTURE ALSO PENDING. SPUTUM CULTURE POSITIVE FOR ENTEROBACTER CLOACAE. HE HAS B EEN RECEIVING ROCEPHIN. WE WILL DISCONTINUE THIS AND START FORTAZ TODAY. PT CONTINUES WITH CONSTIPATION AND DECREASED URINE OUTPT. VITALS TODAY ARE 97.8-76-20-96%NC-117/63. ABNORMAL LAB VALUES INCLUDE THE FOLLOWING: WBC 15.4, RBC 3.11, HGB 8.9, HCT 27.3, BUN 66, CREATININE 1.50, AST 12. TOTAL PROTEIN 6.0, ALBUMIN 1.9. HE IS CURRENTLY RECEIVING IV HYDRATION. OTHERWISE, WE WILL CONTINUE WITH CURRENT PLAN OF CARE. WE WILL FOLLOW UP WITH AM LABS AND CONTINUE TO MONITOR. - Past Medical Family Social History Past Med/Fam/Surg Hx: No changes since H&P Allergies: Allergies penicillin G Adverse Reaction (Verified 02/28/18 15:00) - Review of Systems ROS: No change since H&P - Vital Signs and I&O's Vital Signs: Temperature 97.6 F Pulse Rate [Left Brachial] 76 Pulse Rate 82 Respiratory Rate 24 Blood Pressure [Left Arm] 127/59 Blood Pressure [Right Arm] 159/71 Blood Pressure 149/69 O2 Sat by Pulse Oximetry 97 Intake and Output: Intake & Output 10/27/18 10/28/18 10/29/18 10/30/18 11:59 11:59 11:59 11:59 Intake Total 720 / 720 2266 / 2266 1918 / 1918 1221 / 1221 Output Total 1050 / 1050 2350 / 2350 850 / 850 Balance 720 / 720 1216 / 1216 -432 / -432 371 / 371 - Physical Exam Oriented: Normal Eyes: Normal Ear: Normal Nose: Normal Throat: Normal Respiratory: Diminished Cardiovascular: Normal, Tachycardia : Normal Auscultation: Bowel Sounds: Normal Palpation: Normal Tenderness: Normal Skin: Decreased Turgur, Wound (POSTERIOR SCALP) Musculoskeletal: Right, Left, Leg, Back:Lumbar, Motor Deficit, Sensory Deficit, Instability, Crepitance Psychiatric: Anxiety Affect: Anxious Speech Pattern: Clear, Appropriate - Laboratory and Diagnostics Result Diagrams: 10/29/18 05:17 10/29/18 05:17 Labs: 10/27/18 10:56 Blood Blood Culture - Preliminary 10/27/18 05:53 Urine,Catheterized Urine Culture - Final Escherichia Coli 10/26/18 09:45 Blood Blood Culture - Final Escherichia Coli 10/26/18 09:39 Blood Blood Culture - Final Escherichia Coli 10/26/18 10:11 Sputum - Endotracheal Wash Sputum Culture - Final Enterobacter Cloacae 10/26/18 10:11 Sputum - Endotracheal Wash - Final Laboratory WBC 12.3 X10^3/uL (3.6-10.0) H 10/29/18 05:17 RBC 3.27 X10^6/uL (4.7-6.0) L 10/29/18 05:17 Hgb 9.4 g/dL (13.5-18.0) L 10/29/18 05:17 Hct 28.6 % (42.0-54.0) L 10/29/18 05:17 MCV 87.6 fL (80.0-100.0) 10/29/18 05:17 MCH 28.8 pg (27.0-34.0) 10/29/18 05:17 MCHC 32.9 g/dL (33.0-35.0) L 10/29/18 05:17 RDW 22.5 % (11.6-16.5) H 10/29/18 05:17 Plt Count 203 X10^3/uL (150.0-450.0) 10/29/18 05:17 Plt Count Comment Adequate (ADEQUATE) 10/29/18 05:17 MPV 8.3 fL (7.4-11.0) 10/29/18 05:17 Neut % (Auto) 78.2 % (42.0-75.0) H 10/29/18 05:17 Lymph % (Auto) 7.7 % (21.0-51.0) L 10/29/18 05:17 [place] % (Auto) 10.2 % (0.0-13.0) 10/29/18 05:17 Eos % (Auto) 3.6 % (0.9-2.9) H 10/29/18 05:17 Baso % (Auto) 0.3 % (0.2-1.0) 10/29/18 05:17 Neut # (Auto) 9.6 x10^3/uL (2.2-4.8) H 10/29/18 05:17 Lymph # (Auto) 0.9 X10^3/uL (1.3-2.9) L 10/29/18 05:17 [place] # (Auto) 1.3 x10^3/uL (0.3-0.8) H 10/29/18 05:17 Eos # (Auto) 0.4 x10^3/uL (0.0-0.2) H 10/29/18 05:17 Baso # (Auto) 0.0 X10^3/uL (0.0-0.1) 10/29/18 05:17 Absolute Nucleated RBC 0.0 /100WBC 10/29/18 05:17 Plt Morphology Comment Normal (NORMAL) 10/29/18 05:17 RBC Morphology Abnormal (NORMAL) 10/29/18 05:17 Hypochromasia Slight A 10/27/18 04:55 Anisocytosis 2+ A 10/29/18 05:17 D-Dimer 2290 ng/mL (0-400) H* 10/26/18 09:45 Sodium 144 mmol/L (136-145) 10/29/18 05:17 Corrected Sodium TNP 10/29/18 05:17 Potassium 4.6 mmol/L (3.5-5.1) 10/29/18 05:17 Chloride 109 mmol/L (98-107) H 10/29/18 05:17 Carbon Dioxide 27.3 mmol/L (21-32) 10/29/18 05:17 BUN 37 mg/dL (7-18) H 10/29/18 05:17 Creatinine 1.07 mg/dL (0.70-1.30) 10/29/18 05:17 Est GFR (MDRD) Af Amer > 60 (>60) 10/29/18 05:17 Est GFR (MDRD) Non-Af > 60 (>60) 10/29/18 05:17 Glucose 86 mg/dL (65-99) 10/29/18 05:17 Lactic Acid 0.9 mmol/L (0.4-2.0) 10/26/18 09:45 Calcium 8.6 mg/dL (8.5-10.1) 10/29/18 05:17 Corrected Calcium 10.3 mg/dL (8.5-10.1) H 10/29/18 05:17 Magnesium 2.4 mg/dL (1.7-2.9) 10/27/18 04:55 Total Bilirubin 0.20 mg/dL (0.2-1.0) 10/29/18 05:17 AST 11 Units/L (15-37) L 10/29/18 05:17 ALT 14 Units/L (12-78) 10/29/18 05:17 Alkaline Phosphatase 54 Units/L (46-116) 10/29/18 05:17 Creatine Kinase 27 Units/L (39-308) L 10/26/18 20:13 CK-MB (CK-2) 1.2 ng/mL (0-4.0) 10/26/18 20:13 CK/CKMB % Calc 4.4 % (<4) 10/26/18 20:13 Troponin I < 0.02 ng/mL (0-1.5) 10/26/18 20:13 Total Protein 6.1 g/dL (6.4-8.2) L 10/29/18 05:17 Albumin 1.9 g/dL (3.4-5.0) L 10/29/18 05:17 Globulin 4.2 g/dL (2.5-4.5) 10/29/18 05:17 Albumin/Globulin Ratio 0.5 Ratio (1.1-2.1) L 10/29/18 05:17 Triglycerides 289 mg/dL (0-150) H 10/27/18 04:55 Cholesterol 76 mg/dL (0-200) 10/27/18 04:55 LDL Cholesterol, Calc 11 mg/dL (0-100) 10/27/18 04:55 HDL Cholesterol 7 mg/dL (40-60) L 10/27/18 04:55 Cholesterol/HDL Ratio 10.9 (0.0-5.0) H 10/27/18 04:55 Specimen Type Catherized urine 10/27/18 17:45 Urine Color Yellow (YELLOW) 10/27/18 17:45 Urine Appearance Turbid (CLEAR) 10/27/18 17:45 Urine pH 5.0 (5.0 - 8.0) 10/27/18 17:45 Ur Specific [place] 1.015 (1.000-1.030) 10/27/18 17:45 Urine Protein 3+ (NEGATIVE) 10/27/18 17:45 Urine Glucose (UA) Negative (NEGATIVE) 10/27/18 17:45 Urine Ketones 1+ (NEGATIVE) 10/27/18 17:45 Urine Occult Blood 5+ (NEGATIVE) 10/27/18 17:45 Urine Nitrite Negative (NEGATIVE) 10/27/18 17:45 Urine Bilirubin Negative (NEGATIVE) 10/27/18 17:45 Urine Urobilinogen Normal (NORMAL) 10/27/18 17:45 Ur Leukocyte Esterase 3+ (NEGATIVE) 10/27/18 17:45 Urine RBC 3-5 /HPF (NONE SEEN) 10/27/18 17:45 Urine WBC Tntc /HPF (NONE SEEN) 10/27/18 17:45 Ur Squamous Epith Cells Rare /HPF (NEGATIVE) 10/27/18 17:45 Amorphous Sediment 1+ /HPF (NEGATIVE) 10/27/18 17:45 Urine Bacteria 4+ /HPF (NEGATIVE) 10/27/18 17:45 Hyaline Casts Rare /LPF (NEGATIVE) 10/27/18 17:45 Granular Casts Few /LPF (NEGATIVE) 10/27/18 17:45 Other Casts /LPF (NEGATIVE) 10/27/18 17:45 Ur Culture Indicated? Yes/culture set up 10/27/18 17:45
--- NOTE | 2018-10-29 20:18 | PCM.PROG ---
Progress Note - Progress Note for Day of Date of Exam: 10/29/18 - Subjective Subjective: 77 WM PATIENT OF . HE WAS AN ER ADMISSION ON 10/26 WITH RESPIRATORY DISTRESS WITH HX OF COPD. BLOOD CULTURES WERE REPORTED TO BE POSITIVE. OFFICIAL RESULTS PENDING. BLOOD CULTURES WERE ALSO REPEATED. URINE CULTURE ALSO PENDING. SPUTUM CULTURE POSITIVE FOR ENTEROBACTER CLOACAE. HE WAS C HANGED TO [facility] FOR THAT YESTERDAY. PT CONTINUES WITH CONSTIPATION AND DECREASED URINE OUTPT. VITALS TODAY ARE 98.1-95-24-97%-142/70. ABNORMAL LAB VALUES INCLUDE THE FOLLOWING: WBC 12.3, RBC 3.27, HGB 9.4, HCT 28.6, CHLORIDE 109, BUN 37, AST 11, TOTAL PROTEIN 6.1, ALBUMIN 1.9. HE IS CURRENTLY RECEIVING IV HYDRATION. OTHERWISE, WE WILL CONTINUE WITH CURRENT PLAN OF CARE. WE WILL FOLLOW UP WITH AM LABS AND CONTINUE TO MONITOR. - Past Medical Family Social History Past Med/Fam/Surg Hx: No changes since H&P Allergies: Allergies penicillin G Adverse Reaction (Verified 02/28/18 15:00) - Review of Systems ROS: No change since H&P - Vital Signs and I&O's Vital Signs: Temperature 97.6 F Pulse Rate [Left Brachial] 76 Pulse Rate 82 Respiratory Rate 24 Blood Pressure [Left Arm] 127/59 Blood Pressure [Right Arm] 159/71 Blood Pressure 149/69 O2 Sat by Pulse Oximetry 97 Intake and Output: Intake & Output 10/27/18 10/28/18 10/29/18 10/30/18 11:59 11:59 11:59 11:59 Intake Total 720 / 720 2266 / 2266 1918 / 1918 1221 / 1221 Output Total 1050 / 1050 2350 / 2350 850 / 850 Balance 720 / 720 1216 / 1216 -432 / -432 371 / 371 - Physical Exam Oriented: Normal Eyes: Normal Ear: Normal Nose: Normal Throat: Normal Respiratory: Diminished Cardiovascular: Normal, Tachycardia : Normal Auscultation: Bowel Sounds: Normal Tenderness: Normal Skin: Decreased Turgur, Wound (POSTERIOR SCALP) Musculoskeletal: Right, Left, Leg, Back:Lumbar, Motor Deficit, Sensory Deficit, Instability, Crepitance Psychiatric: Anxiety Affect: Anxious Speech Pattern: Clear, Appropriate - Laboratory and Diagnostics Result Diagrams: 10/29/18 05:17 10/29/18 05:17 Labs: 10/27/18 10:56 Blood Blood Culture - Preliminary 10/27/18 05:53 Urine,Catheterized Urine Culture - Final Escherichia Coli 10/26/18 09:45 Blood Blood Culture - Final Escherichia Coli 10/26/18 09:39 Blood Blood Culture - Final Escherichia Coli 10/26/18 10:11 Sputum - Endotracheal Wash Sputum Culture - Final Enterobacter Cloacae 10/26/18 10:11 Sputum - Endotracheal Wash - Final Laboratory WBC 12.3 X10^3/uL (3.6-10.0) H 10/29/18 05:17 RBC 3.27 X10^6/uL (4.7-6.0) L 10/29/18 05:17 Hgb 9.4 g/dL (13.5-18.0) L 10/29/18 05:17 Hct 28.6 % (42.0-54.0) L 10/29/18 05:17 MCV 87.6 fL (80.0-100.0) 10/29/18 05:17 MCH 28.8 pg (27.0-34.0) 10/29/18 05:17 MCHC 32.9 g/dL (33.0-35.0) L 10/29/18 05:17 RDW 22.5 % (11.6-16.5) H 10/29/18 05:17 Plt Count 203 X10^3/uL (150.0-450.0) 10/29/18 05:17 Plt Count Comment Adequate (ADEQUATE) 10/29/18 05:17 MPV 8.3 fL (7.4-11.0) 10/29/18 05:17 Neut % (Auto) 78.2 % (42.0-75.0) H 10/29/18 05:17 Lymph % (Auto) 7.7 % (21.0-51.0) L 10/29/18 05:17 [place] % (Auto) 10.2 % (0.0-13.0) 10/29/18 05:17 Eos % (Auto) 3.6 % (0.9-2.9) H 10/29/18 05:17 Baso % (Auto) 0.3 % (0.2-1.0) 10/29/18 05:17 Neut # (Auto) 9.6 x10^3/uL (2.2-4.8) H 10/29/18 05:17 Lymph # (Auto) 0.9 X10^3/uL (1.3-2.9) L 10/29/18 05:17 [place] # (Auto) 1.3 x10^3/uL (0.3-0.8) H 10/29/18 05:17 Eos # (Auto) 0.4 x10^3/uL (0.0-0.2) H 10/29/18 05:17 Baso # (Auto) 0.0 X10^3/uL (0.0-0.1) 10/29/18 05:17 Absolute Nucleated RBC 0.0 /100WBC 10/29/18 05:17 Plt Morphology Comment Normal (NORMAL) 10/29/18 05:17 RBC Morphology Abnormal (NORMAL) 10/29/18 05:17 Hypochromasia Slight A 10/27/18 04:55 Anisocytosis 2+ A 10/29/18 05:17 D-Dimer 2290 ng/mL (0-400) H* 10/26/18 09:45 Sodium 144 mmol/L (136-145) 10/29/18 05:17 Corrected Sodium TNP 10/29/18 05:17 Potassium 4.6 mmol/L (3.5-5.1) 10/29/18 05:17 Chloride 109 mmol/L (98-107) H 10/29/18 05:17 Carbon Dioxide 27.3 mmol/L (21-32) 10/29/18 05:17 BUN 37 mg/dL (7-18) H 10/29/18 05:17 Creatinine 1.07 mg/dL (0.70-1.30) 10/29/18 05:17 Est GFR (MDRD) Af Amer > 60 (>60) 10/29/18 05:17 Est GFR (MDRD) Non-Af > 60 (>60) 10/29/18 05:17 Glucose 86 mg/dL (65-99) 10/29/18 05:17 Lactic Acid 0.9 mmol/L (0.4-2.0) 10/26/18 09:45 Calcium 8.6 mg/dL (8.5-10.1) 10/29/18 05:17 Corrected Calcium 10.3 mg/dL (8.5-10.1) H 10/29/18 05:17 Magnesium 2.4 mg/dL (1.7-2.9) 10/27/18 04:55 Total Bilirubin 0.20 mg/dL (0.2-1.0) 10/29/18 05:17 AST 11 Units/L (15-37) L 10/29/18 05:17 ALT 14 Units/L (12-78) 10/29/18 05:17 Alkaline Phosphatase 54 Units/L (46-116) 10/29/18 05:17 Creatine Kinase 27 Units/L (39-308) L 10/26/18 20:13 CK-MB (CK-2) 1.2 ng/mL (0-4.0) 10/26/18 20:13 CK/CKMB % Calc 4.4 % (<4) 10/26/18 20:13 Troponin I < 0.02 ng/mL (0-1.5) 10/26/18 20:13 Total Protein 6.1 g/dL (6.4-8.2) L 10/29/18 05:17 Albumin 1.9 g/dL (3.4-5.0) L 10/29/18 05:17 Globulin 4.2 g/dL (2.5-4.5) 10/29/18 05:17 Albumin/Globulin Ratio 0.5 Ratio (1.1-2.1) L 10/29/18 05:17 Triglycerides 289 mg/dL (0-150) H 10/27/18 04:55 Cholesterol 76 mg/dL (0-200) 10/27/18 04:55 LDL Cholesterol, Calc 11 mg/dL (0-100) 10/27/18 04:55 HDL Cholesterol 7 mg/dL (40-60) L 10/27/18 04:55 Cholesterol/HDL Ratio 10.9 (0.0-5.0) H 10/27/18 04:55 Specimen Type Catherized urine 10/27/18 17:45 Urine Color Yellow (YELLOW) 10/27/18 17:45 Urine Appearance Turbid (CLEAR) 10/27/18 17:45 Urine pH 5.0 (5.0 - 8.0) 10/27/18 17:45 Ur Specific [place] 1.015 (1.000-1.030) 10/27/18 17:45 Urine Protein 3+ (NEGATIVE) 10/27/18 17:45 Urine Glucose (UA) Negative (NEGATIVE) 10/27/18 17:45 Urine Ketones 1+ (NEGATIVE) 10/27/18 17:45 Urine Occult Blood 5+ (NEGATIVE) 10/27/18 17:45 Urine Nitrite Negative (NEGATIVE) 10/27/18 17:45 Urine Bilirubin Negative (NEGATIVE) 10/27/18 17:45 Urine Urobilinogen Normal (NORMAL) 10/27/18 17:45 Ur Leukocyte Esterase 3+ (NEGATIVE) 10/27/18 17:45 Urine RBC 3-5 /HPF (NONE SEEN) 10/27/18 17:45 Urine WBC Tntc /HPF (NONE SEEN) 10/27/18 17:45 Ur Squamous Epith Cells Rare /HPF (NEGATIVE) 10/27/18 17:45 Amorphous Sediment 1+ /HPF (NEGATIVE) 10/27/18 17:45 Urine Bacteria 4+ /HPF (NEGATIVE) 10/27/18 17:45 Hyaline Casts Rare /LPF (NEGATIVE) 10/27/18 17:45 Granular Casts Few /LPF (NEGATIVE) 10/27/18 17:45 Other Casts /LPF (NEGATIVE) 10/27/18 17:45 Ur Culture Indicated? Yes/culture set up 10/27/18 17:45
[2018-10-29] MEDS: LIPITOR TAB 40 MG PO SCH (21:25)
[2018-10-29] MEDS: RESTORIL CAP 15 MG PO SCH (21:25)
[2018-10-29] MEDS: FLEXERIL TAB 10 MG PO SCH (21:25)
[2018-10-29] MEDS: FLOMAX PO SCH (21:26)
[2018-10-30] MEDS: DUONEB 0.5 MG/3 MG NEB SCH ×6 (00:49→20:11)
[2018-10-30] MEDS: NS 1000 ML 1,000 ML IV SCH (03:50)
[2018-10-30 05:20] LABS: BASOPHILS # (AUTO) 0.1 X10^3/uL (0.0-0.1); BASOPHILS % (AUTO) 1.1 % (0.2-1.0); EOSINOPHILS # (AUTO) 0.5 x10^3/uL (0.0-0.2); EOSINOPHILS % (AUTO) 4.1 % (0.9-2.9); HEMATOCRIT 28.9 % (42.0-54.0); HEMOGLOBIN 9.2 g/dL (13.5-18.0); LYMPHOCYTES # (AUTO) 1.2 X10^3/uL (1.3-2.9); LYMPHOCYTES % (AUTO) 10.3 % (21.0-51.0); MEAN CORPUSCULAR HEMOGLOBIN 28.6 pg (27.0-34.0); MEAN CORPUSCULAR VOLUME 89.2 fL (80.0-100.0); MEAN PLATELET VOLUME 8.5 fL (7.4-11.0); MONOCYTES # (AUTO) 1.5 x10^3/uL (0.3-0.8); MONOCYTES % (AUTO) 13.1 % (0.0-13.0); NEUTROPHILS # (AUTO) 8.1 x10^3/uL (2.2-4.8); NEUTROPHILS % (AUTO) 71.4 % (42.0-75.0); PLATELET COUNT 194 X10^3/uL (150.0-450.0); RED BLOOD COUNT 3.24 X10^6/uL (4.7-6.0); RED CELL DISTRIBUTION WIDTH 21.8 % (11.6-16.5); WHITE BLOOD COUNT 11.3 X10^3/uL (3.6-10.0)
[2018-10-30 05:47] LABS: ALANINE AMINOTRANSFERASE 14 Units/L (12-78); ALBUMIN 1.9 g/dL (3.4-5.0); ALKALINE PHOSPHATASE 46 Units/L (46-116); ASPARTATE AMINO TRANSFERASE 16 Units/L (15-37); BLOOD UREA NITROGEN 27 mg/dL (7-18); CALCIUM 9.2 mg/dL (8.5-10.1); CARBON DIOXIDE 27.2 mmol/L (21-32); CHLORIDE 110 mmol/L (98-107); COR CA(FOR HYPOALB) 10.9 mg/dL (8.5-10.1); CREATININE 0.96 mg/dL (0.70-1.30); SODIUM 145 mmol/L (136-145); TOTAL PROTEIN 6.1 g/dL (6.4-8.2); eGFR NON BLACK RACES > 60 (>60)
[2018-10-30 06:01] LABS: PLATELET MORPHOLOGY COMMENT NORMAL (NORMAL)
[2018-10-30 06:02] LABS: ANISOCYTOSIS 1+
[2018-10-30] MEDS ORDERED: NS 100 ML IV 100 ML IV ONE (09:06)
[2018-10-30] MEDS: HEMOCYTE-PLUS PO SCH (09:15)
[2018-10-30] MEDS: THEO-DUR TAB 200 MG PO SCH (09:15)
[2018-10-30] MEDS: ASPIRIN 81 MG CHEWTAB PO SCH (09:15)
[2018-10-30] MEDS: PREDNISONE TAB 5 MG PO SCH (09:15)
[2018-10-30] MEDS: FORTAZ or TAZICEF VIAL INJ IVP SCH (09:15)
[2018-10-30] MEDS: COLACE CAP 100 MG PO SCH ×2 (09:15→20:51)
[2018-10-30] MEDS: PriLOSEC PO SCH ×2 (09:15→20:48)
[2018-10-30] MEDS: COREG TAB 6.25 MG PO SCH ×2 (09:15→20:49)
[2018-10-30] MEDS: ALDACTONE TAB 25 MG PO SCH ×2 (09:15→20:48)
[2018-10-30] MEDS: NORCO 10/325 TAB PO PRN ×2 (09:59→20:51)
[2018-10-30] MEDS: LOVENOX INJ 40 MG SYR SC SCH (09:59)
[2018-10-30] MEDS: PULMICORT NEB TX 0.5 MG NEB SCH ×2 (10:00→20:11)
--- NOTE | 2018-10-30 11:22 | RAD ---
HISTORY: Bronchitis Study: One-view chest Comparison: One-view chest 1 09/2019. Technique: AP portable chest . Findings: EKG leads overlie the thorax. Soft tissues bony thorax are normal. There are old healed/healing posterior left rib fractures involving the left 7th 8th 9th ribs on the left. The heart size configuration airway are normal lungs are clear other than mild chronic lung changes. There is no hilar or mediastinal adenopathy no consolidating infiltrates no effusion. IMPRESSION: 1. Chronic lung changes but no acute findings. 2. Healing left posterior rib fractures are observed. Reported By:
[2018-10-30] MEDS: INVANZ INJ 1 GM VIAL 1 GM in NS 100 ML IV + SPIKE MINIBAG* 100 ML IV SCH (16:34)
[2018-10-30] MEDS: FLEXERIL TAB 10 MG PO SCH (20:49)
[2018-10-30] MEDS: FLOMAX PO SCH (20:49)
[2018-10-30] MEDS: RESTORIL CAP 15 MG PO SCH (20:49)
[2018-10-30] MEDS: LIPITOR TAB 40 MG PO SCH (20:50)
[2018-10-31] MEDS: DUONEB 0.5 MG/3 MG NEB SCH ×4 (01:06→13:13)
[2018-10-31 06:05] LABS: BASOPHILS # (AUTO) 0.1 X10^3/uL (0.0-0.1); BASOPHILS % (AUTO) 0.5 % (0.2-1.0); EOSINOPHILS # (AUTO) 0.5 x10^3/uL (0.0-0.2); EOSINOPHILS % (AUTO) 4.7 % (0.9-2.9); HEMATOCRIT 24.2 % (42.0-54.0); LYMPHOCYTES # (AUTO) 1.2 X10^3/uL (1.3-2.9); LYMPHOCYTES % (AUTO) 12.3 % (21.0-51.0); MEAN CORPUSCULAR HEMOGLOBIN 29.2 pg (27.0-34.0); MEAN CORPUSCULAR HGB CONC 33.1 g/dL (33.0-35.0); MEAN CORPUSCULAR VOLUME 88.2 fL (80.0-100.0); MEAN PLATELET VOLUME 8.1 fL (7.4-11.0); MONOCYTES # (AUTO) 1.2 x10^3/uL (0.3-0.8); MONOCYTES % (AUTO) 11.9 % (0.0-13.0); NEUTROPHILS # (AUTO) 7.1 x10^3/uL (2.2-4.8); NEUTROPHILS % (AUTO) 70.6 % (42.0-75.0); PLATELET COUNT 214 X10^3/uL (150.0-450.0); RED BLOOD COUNT 2.74 X10^6/uL (4.7-6.0); RED CELL DISTRIBUTION WIDTH 21.4 % (11.6-16.5)
[2018-10-31] MEDS: NS 1000 ML 1,000 ML IV SCH ×2 (06:05→07:36)
[2018-10-31 06:22] LABS: ALANINE AMINOTRANSFERASE 13 Units/L (12-78); ALBUMIN 1.7 g/dL (3.4-5.0); ALKALINE PHOSPHATASE 38 Units/L (46-116); ASPARTATE AMINO TRANSFERASE 8 Units/L (15-37); BLOOD UREA NITROGEN 23 mg/dL (7-18); CALCIUM 8.5 mg/dL (8.5-10.1); CARBON DIOXIDE 28.4 mmol/L (21-32); CHLORIDE 110 mmol/L (98-107); COR CA(FOR HYPOALB) 10.3 mg/dL (8.5-10.1); CREATININE 0.82 mg/dL (0.70-1.30); SODIUM 145 mmol/L (136-145); TOTAL PROTEIN 5.4 g/dL (6.4-8.2); eGFR NON BLACK RACES > 60 (>60)
[2018-10-31 06:49] LABS: PLATELET MORPHOLOGY COMMENT NORMAL (NORMAL)
[2018-10-31 06:50] LABS: ANISOCYTOSIS 1+
[2018-10-31] MEDS: PULMICORT NEB TX 0.5 MG NEB SCH (08:57)
[2018-10-31] MEDS ORDERED: MILK OF MAGNESIA PO SCH (09:00)
[2018-10-31 09:04] VITALS: BP 127/61
[2018-10-31] MEDS: COREG TAB 6.25 MG PO SCH (09:04)
[2018-10-31] MEDS: ASPIRIN 81 MG CHEWTAB PO SCH (09:04)
[2018-10-31] MEDS: COLACE CAP 100 MG PO SCH (09:04)
[2018-10-31] MEDS: ALDACTONE TAB 25 MG PO SCH (09:04)
[2018-10-31] MEDS: HEMOCYTE-PLUS PO SCH (09:05)
[2018-10-31] MEDS: LOVENOX INJ 40 MG SYR SC SCH (09:05)
[2018-10-31] MEDS: INVANZ INJ 1 GM VIAL 1 GM in NS 100 ML IV + SPIKE MINIBAG* 100 ML IV SCH (09:05)
[2018-10-31] MEDS: PREDNISONE TAB 5 MG PO SCH (09:05)
[2018-10-31] MEDS: THEO-DUR TAB 200 MG PO SCH (09:06)
[2018-10-31] MEDS: PriLOSEC PO SCH (09:06)
== END 2018-10-31 14:00 | DRG 190 ==
LOC: MED/SURG 09:15 → ER 09:15 → MED/SURG 13:55
PROVIDERS: ADMIT Internal Medicine; ATTEND Internal Medicine
DX: N39.0 Urinary tract infection, site not specified; R53.1 Weakness; N28.9 Disorder of kidney and ureter, unspecified; K59.09 Other constipation; K21.9 Gastro-esophageal reflux disease without esophagitis; I10 Essential (primary) hypertension; N17.8 Other acute kidney failure; Z87.898 Personal history of other specified conditions; M13.89 Other specified arthritis, multiple sites; J44.1 Chronic obstructive pulmonary disease with (acute) exacerbation; R06.02 Shortness of breath; F41.8 Other specified anxiety disorders; B96.89 Other specified bacterial agents as the cause of diseases classified elsewhere; R78.81 Bacteremia; E78.2 Mixed hyperlipidemia; J15.6 Pneumonia due to other Gram-negative bacteria; I25.10 Atherosclerotic heart disease of native coronary artery without angina pectoris
CPT/HCPCS: 36415; 71010; 71045; 80053; 80061; 81001; 82550; 82553; 83605; 83735; 84484; 85025; 85378; 87040; 87070; 87077; 87086; 87088; 87186; 87205; 93005; 94640; 94669; 94760; 96365; 96374; 97110; 97161; 97166; 99282; 99284; A4222; G0378; J0696; J0713; J1335; J1650; J7030; J7050; J7512; J7620; J7626